=== PATIENT | female | born 1975 | race Caucasian/White ===

== ENCOUNTER 2016-02-19 19:18 | Inpatient (IN) | payer OTHER ==
[2016-02-19 19:55] VITALS: BMI 21.8
--- NOTE | 2016-02-19 20:24 | HP ---
COWS - Scale Resting Pulse: 0= [place] 80 or Below Sweatin=Flushed/Facial Moisture Restless Observation: 5= Unable to Sit Still Pupil Size: 1= Pupils >than Normal Bone or Joint Aches: 4=Acute Joint/Muscle Pain Runny Nose/ Eye Tearin= Nasal Congestion GI Upset > 30mins: 2= Nausea/Diarrhea Tremor Observation: 2= Slight Tremor Visible Yawning Observation: 0= None Anxiety or Irritability: 4=Extreme Anxiety Goose Flesh Skin: 0=Smooth Skin COWS Score: 21 Admission ROS [facility] Chief Complaint: WITHDRAWAL SX'S Allergies/Adverse Reactions: Allergies Allergy/AdvReac Type Severity Reaction Status Date / Time sulfamethoxazole AdvReac Verified 02/19/16 20:17 [From Bactrim] trimethoprim [From Bactrim] AdvReac Verified 02/19/16 20:17 History of Present Illness: 41 Y.O. FEMALE WITH OPIOID , COCAINE, CANNABIS DEPENDENCE ADMITTED FOR DETOX. CLIENT REPORTS THIS IS HER FIRST TIME IN [facility]. DENIES ANY SIGNIFICANT CLEAN TIME Exam Limitations: No Limitations - Ebola screening Have you traveled outside of the country in the last 21 days: No Have you had contact with anyone from an Ebola affected area: No Have you been sick,other than usual withdrawal symptoms: No Do you have a fever: No - Review of Systems Constitutional: Chills, Loss of Appetite, Malaise, Night Sweats, Changes in sleep EENT: reports: Tearing, Nose Congestion Respiratory: reports: No Symptoms reported Cardiac: reports: No Symptoms Reported GI: reports: Diarrhea, Nausea, Poor Appetite : reports: No Symptoms Reported Musculoskeletal: reports: Back Pain, Joint Pain Integumentary: reports: No Symptoms Reported Neuro: reports: No Symptoms reported Endocrine: reports: No Symptoms Reported Hematology: reports: Anemia Psychiatric: reports: Anxious Other Systems: Reviewed and Negative Patient History - Patient Medical History Hx Anemia: Yes Hx Asthma: No Hx Chronic Obstructive Pulmonary Disease (COPD): No Hx Cancer: No Hx Cardiac Disorders: No Hx Congestive Heart Failure: No Hx Hypertension: No Hx Hypercholesterolemia: No Hx Pacemaker: No HX Cerebrovascular Accident: No Hx Seizures: No Hx Dementia: No Hx Diabetes: No Hx Gastrointestinal Disorders: No Hx Liver Disease: No Hx Genitourinary Disorders: No Hx Sexually Transmitted Disorders: No Hx Renal Disease (ESRD): No Hx Thyroid Disease: No Hx Human Immunodeficiency Virus (HIV): Yes (ON MEDS) Hx Hepatitis C: No Hx Depression: No Hx Suicide Attempt: No Hx Bipolar Disorder: No Other Medical History: DENIES - Patient Surgical History Past Surgical History: Yes Hx Section: Yes (X3) Hx Orthopedic Surgery: Yes (R FOOT BUNION SX) Anesthesia Reaction: No - PPD History Previous Implant?: Yes Documented Results: Negative w/o proof Implanted On Prior R Admission?: No PPD to be Administered?: Yes - Reproductive History Patient is a Female of Child Bearing Age (11 -55 yrs old): Yes Last Menstrual Period: 07/25/15 LMP comment: IRREG Patient : No (NEG HCG) - Smoking Cessation Smoking history: Current every day smoker Have you smoked in the past 12 months: Yes Aproximately how many cigarettes per day: 4 Cigars Per Day: 0 Hx Chewing Tobacco Use: No Initiated information on smoking cessation: Yes 'Breaking Loose' booklet given: 02/19/16 - Substance & Tx. History Hx Alcohol Use: No Hx Substance Use: Yes Substance Use Type: Cocaine, Heroin, Marijuana Hx Substance Use Treatment: No - Substances Abused HEROIN Route: Inhalation Frequency: Daily Amount used: 3 BUNDLES Age of first use: 40 Date of Last Use: 02/17/16 THC Route: Smoking Frequency: 1-3 times last 30 days Amount used: DIME BAG Age of first use: 18 Date of Last Use: 02/19/16 COCAINE Route: Smoking Frequency: Daily Amount used: 1 GM Age of first use: 24 Date of Last Use: 02/17/16 Family Disease History - Family Disease History Family Disease History: Other: Father (HEROIN ADDICT/OVERDOSED) Admission Physical Exam S - Vital Signs Vital Signs: Vital Signs - 24 hr 02/19/16 19:49 Temperature 97.5 F L Pulse Rate 76 Respiratory 18 Rate Blood Pressure 100/61 - Physical General Appearance: Yes: Appropriately Dressed, Mild Distress, Tremorous, Irritable, Anxious HEENTM: Yes: EOMI, Normocephalic, TAD, Pharynx Normal Respiratory: Yes: Chest Non-Tender, Lungs Clear, Normal Breath Sounds, No Respiratory Distress, No Accessory Muscle Use Neck: Yes: No masses,lesions,Nodules, Supple, Trachea in good position Breast: Yes: Breast Exam Deferred Cardiology: Yes: Regular Rhythm, Regular Rate, S1, S2 Abdominal: Yes: Normal Bowel Sounds, Non Tender, Soft, Surgical Scar (C SECTION) Genitourinary: Yes: Within Normal Limits Back: Yes: Normal Inspection Musculoskeletal: Yes: full range of Motion, Gait Steady Extremities: Yes: Normal Capillary Refill, Normal Range of Motion, Non-Tender, Tremors Neurological: Yes: certified midwife II-XII NML intact, Fully Oriented, Alert, Motor Strength 5/5 Integumentary: Yes: Normal Color, Dry, Warm Lymphatic: Yes: Within Normal Limits - Diagnostic (1) Nicotine dependence Current Visit: Yes Status: Chronic Qualifiers: Nicotine product type: cigarettes Substance use status: uncomplicated Qualified Code(s): F17.210 - Nicotine dependence, cigarettes, uncomplicated (2) Uncomplicated opioid dependence Current Visit: Yes Status: Acute (3) Cocaine dependence, uncomplicated Current Visit: Yes Status: Acute (4) Cannabis dependence, uncomplicated Current Visit: Yes Status: Acute (5) HIV disease Current Visit: Yes Status: Chronic Cleared for Admission [facility] - Detox or Rehab [facility] Level of Care: Medically Managed Detox Regimen/Protocol: Methadone [facility] Breath Alcohol Content Breath Alcohol Content: 0 Urine Pregancy Test - Result Urine Test Results: Negative- NO Line Present Urine Drug Screen - Results Drug Screen Negative: No Urine Drug Screen Results: THC-Marijuana, ALEXIA-Cocaine, OPI-Opiates
[2016-02-19] MEDS ORDERED: MAGNESIUM CITRATE 300 ML BOTTLE PO PRN (20:39)
[2016-02-19] MEDS ORDERED: guaiFENesin/D-METHORPHAN HB 10 ML UNIT-DOSE CUPS PO PRN (20:39)
[2016-02-19] MEDS ORDERED: MENTHOL/PHENOL 1 EACH UD MM PRN (20:39)
[2016-02-19] MEDS ORDERED: ACETAMINOPHEN 325 MG TABLET (FP) PO PRN (20:39)
[2016-02-19] MEDS ORDERED: MAGNESIUM HYDROX 2400MG/30ML ORAL SUSPENSION 30 ML CUP PO PRN (20:39)
[2016-02-19] MEDS ORDERED: LOPERAMIDE HCL 2 MG CAPSULE PO PRN (20:39)
[2016-02-19] MEDS ORDERED: P-EPHED 60MG/TRIPROLIDI 2.5MG TABLET PO PRN (20:39)
[2016-02-19] MEDS ORDERED: IBUPROFEN 400 MG TABLET (FP) PO PRN (20:39)
[2016-02-19] MEDS ORDERED: METHADONE HCL 10 MG TABLET (FOR DETOX USE ONLY) PO ONE ×2 (20:39→23:00)
[2016-02-19] MEDS ORDERED: NICOTINE POLACRILEX 2 MG GUM BC PRN (20:39)
[2016-02-19] MEDS ORDERED: hydrOXYzine PAMOATE 50 MG CAPSULE (FP) PO PRN (20:39)
[2016-02-19] MEDS: diazePAM 5 MG TABLET PO PRN (21:41)
[2016-02-19] MEDS: NICOTINE 14 MG/24 HOURS TOPICAL PATCH TD SCH (21:46)
[2016-02-19] MEDS: THIAMINE HCL 100 MG TABLET (FP) PO SCH (22:03)
[2016-02-19 22:35] LABS: URINE APPEARANCE SLCLOUDY; URINE BILIRUBIN NEGATIVE (NEGATIVE); URINE BLOOD NEGATIVE (NEGATIVE); URINE COLOR YELLOW; URINE GLUCOSE (UA) NEGATIVE (NEGATIVE); URINE KETONE NEGATIVE (NEGATIVE); URINE LEUK ESTERASE 1+ (NEGATIVE); URINE NITRITE NEGATIVE (NEGATIVE); URINE PROTEIN NEGATIVE (NEGATIVE); URINE UROBILINOGEN 2.0 E.U/dl E.U./dl (0.2-1.0)
[2016-02-19 22:37] LABS: CALCIUM OXALATE CRYSTALS FEW /hpf (NONE SEEN); URINE MUCUS RARE; URINE RBC 2 /hpf (0-3); URINE WBC 31 /hpf (3-5)
[2016-02-20] MEDS: diazePAM 5 MG TABLET PO PRN ×4 (08:34→22:25)
[2016-02-20] MEDS ORDERED: METHADONE HCL 10 MG TABLET (FOR DETOX USE ONLY) PO ONE (10:00)
[2016-02-20] MEDS: PRENATAL VITAMINS W/ FOLIC ACID TABLET (FP) PO SCH (10:09)
[2016-02-20] MEDS: NICOTINE 14 MG/24 HOURS TOPICAL PATCH TD SCH (10:10)
[2016-02-20 10:19] LABS: MCH 29.3 pg (25.7-33.7); MCHC 33.4 g/dl (32.0-36.0); MEAN CELL VOLUME 87.7 fl (80-96); MEAN PLT VOLUME 9.9 fl (7.5-11.1); PLATELET COUNT 212 K/MM3 (134-434); RDW 15.2 % (11.6-15.6); WHITE BLOOD COUNT 5.7 K/mm3 (4.0-10.0)
--- NOTE | 2016-02-20 10:39 | PN ---
BHS COWS - Scale Resting Pulse: 1= [place] 81-100 Sweatin=Flushed/Facial Moisture Restless Observation: 1= Difficult to Sit Still Pupil Size: 0= Normal to Room Light Bone or Joint Aches: 2= Severe Diffuse Aches Runny Nose/ Eye Tearin= Runny Nose/Eyes GI Upset > 30mins: 1= Stomach Cramp Tremor Observation of Outstretched Hands: 2= Slight Tremor Visible Yawning Observation: 1= 1-2x During Session Anxiety or Irritability: 2=Irritable/Anxious Goose Flesh Skin: 3=Piloerection COWS Score: 17 BHS Progress Note (SOAP) Subjective: chills sweats agitation anxiety irritable headache body aches Objective: 02/20/16 10:36 Vital Signs Temperature 98.1 F 02/20/16 09:40 Pulse Rate 87 02/20/16 09:40 Respiratory Rate 18 02/20/16 09:40 Blood Pressure 110/70 02/20/16 09:40 O2 Sat by Pulse Oximetry (%) Laboratory Tests 02/19/16 02/20/16 21:29 08:00 WBC 5.7 RBC 4.13 Hgb 12.1 Hct 36.2 MCV 87.7 MCHC 33.4 RDW 15.2 Plt Count 212 MPV 9.9 Urine Color Yellow Urine Appearance Slcloudy Urine pH 5.0 Ur Specific [place] 1.032 Urine Protein Negative Urine Glucose (UA) Negative Urine Ketones Negative Urine Blood Negative Urine Nitrite Negative Urine Bilirubin Negative Urine Urobilinogen 2.0 e.u/dl H Ur Leukocyte Esterase 1+ H Urine RBC 2 Urine WBC 31 Ur Epithelial Cells Moderate Calcium Oxalate Crystal Few Urine Mucus Rare labs pending awake/alert ambulating no acute distress Assessment: 02/20/16 10:36 withdrawal sx Plan: continue detox increase fluids labs pending
[2016-02-20 10:53] LABS: ALBUMIN 3.3 g/dl (3.4-5.0); ALK PHOS 107 U/L (45-117); ANION GAP 6 (8-16); BILIRUBIN,TOTAL 0.5 mg/dL (0.2-1.0); CALCIUM 9.1 mg/dL (8.5-10.1); CO2 27 mmol/L (21-32); CREATININE 0.9 mg/dL (0.55-1.02); GLUCOSE,RANDOM 98 mg/dL (74-106); SGOT/AST 10 U/L (15-37); SGPT/ALT 15 U/L (12-78); TOT PROT 6.8 g/dl (6.4-8.2)
[2016-02-20] MEDS: CYCLOBENZAPRINE HCL 10 MG TABLET (FP) PO PRN ×2 (12:25→22:25)
[2016-02-20] MEDS: MAG HYDROX/AL HYDROX/SIMETH 30 ML UNIT-DOSE CUP PO PRN (20:10)
[2016-02-20] MEDS: THIAMINE HCL 100 MG TABLET (FP) PO SCH (22:25)
[2016-02-21] MEDS: diazePAM 5 MG TABLET PO PRN ×4 (02:58→22:16)
[2016-02-21] MEDS ORDERED: METHADONE HCL 5 MG TABLET (FOR DETOX USE ONLY) PO ONE (10:00)
--- NOTE | 2016-02-21 10:13 | PN ---
S COWS - Scale Resting Pulse: 0= [place] 80 or Below Sweatin= Chills/Flushing Restless Observation: 1= Difficult to Sit Still Pupil Size: 1= Pupils >than Normal Bone or Joint Aches: 2= Severe Diffuse Aches Runny Nose/ Eye Tearin= Nasal Congestion GI Upset > 30mins: 2= Nausea/Diarrhea Tremor Observation of Outstretched Hands: 2= Slight Tremor Visible Yawning Observation: 0= None Anxiety or Irritability: 2=Irritable/Anxious Goose Flesh Skin: 0=Smooth Skin COWS Score: 12 S Progress Note (SOAP) Subjective: interrupted seep, sweats., shakes , nausea, diarrhea, bones hurt Objective: 02/21/16 10:11 Vital Signs Temperature 98.2 F 02/21/16 06:01 Pulse Rate 77 02/21/16 06:01 Respiratory Rate 16 02/21/16 06:01 Blood Pressure 100/69 02/21/16 06:01 O2 Sat by Pulse Oximetry (%) Laboratory Tests 02/19/16 02/20/16 02/20/16 21:29 07:50 07:50 WBC RBC Hgb Hct MCV MCHC RDW Plt Count MPV Sodium 140 Potassium 3.5 Chloride 107 Carbon Dioxide 27 Anion Gap 6 L BUN 20 H Creatinine 0.9 Creat Clearance w eGFR > 60 Random Glucose 98 Calcium 9.1 Total Bilirubin 0.5 AST 10 L ALT 15 Alkaline Phosphatase 107 Total Protein 6.8 Albumin 3.3 L Urine Color Yellow Urine Appearance Slcloudy Urine pH 5.0 Ur Specific [place] 1.032 Urine Protein Negative Urine Glucose (UA) Negative Urine Ketones Negative Urine Blood Negative Urine Nitrite Negative Urine Bilirubin Negative Urine Urobilinogen 2.0 e.u/dl H Ur Leukocyte Esterase 1+ H Urine RBC 2 Urine WBC 31 Ur Epithelial Cells Moderate Calcium Oxalate Crystal Few Urine Mucus Rare RPR Titer Nonreactive 02/20/16 08:00 WBC 5.7 RBC 4.13 Hgb 12.1 Hct 36.2 MCV 87.7 MCHC 33.4 RDW 15.2 Plt Count 212 MPV 9.9 Sodium Potassium Chloride Carbon Dioxide Anion Gap BUN Creatinine Creat Clearance w eGFR Random Glucose Calcium Total Bilirubin AST ALT Alkaline Phosphatase Total Protein Albumin Urine Color Urine Appearance Urine pH Ur Specific [place] Urine Protein Urine Glucose (UA) Urine Ketones Urine Blood Urine Nitrite Urine Bilirubin Urine Urobilinogen Ur Leukocyte Esterase Urine RBC Urine WBC Ur Epithelial Cells Calcium Oxalate Crystal Urine Mucus RPR Titer pt aox3 in nad lying in bed but irritable 02/21/16 10:12 02/21/16 10:13 Assessment: 02/21/16 10:12 witrhdrawl sx's Plan: cont. dedtox increase fluids imodium prn motrin prn
[2016-02-21] MEDS: PRENATAL VITAMINS W/ FOLIC ACID TABLET (FP) PO SCH (10:15)
[2016-02-21] MEDS: NICOTINE 14 MG/24 HOURS TOPICAL PATCH TD SCH (10:15)
[2016-02-21] MEDS: CYCLOBENZAPRINE HCL 10 MG TABLET (FP) PO PRN ×2 (10:17→22:16)
[2016-02-21] MEDS: MAG HYDROX/AL HYDROX/SIMETH 30 ML UNIT-DOSE CUP PO PRN ×2 (13:54→19:23)
[2016-02-21] MEDS: THIAMINE HCL 100 MG TABLET (FP) PO SCH (22:16)
[2016-02-21] MEDS: diphenhydrAMINE HCL 50 MG CAPSULE PO PRN (22:18)
[2016-02-21 23:14] LABS: URINE APPEARANCE SLCLOUDY; URINE BILIRUBIN NEGATIVE (NEGATIVE); URINE BLOOD NEGATIVE (NEGATIVE); URINE COLOR YELLOW; URINE GLUCOSE (UA) NEGATIVE (NEGATIVE); URINE KETONE NEGATIVE (NEGATIVE); URINE LEUK ESTERASE NEGATIVE (NEGATIVE); URINE NITRITE POSITIVE (NEGATIVE); URINE PROTEIN NEGATIVE (NEGATIVE); URINE UROBILINOGEN NEGATIVE E.U./dl (0.2-1.0)
[2016-02-21 23:26] LABS: CALCIUM OXALATE CRYSTALS RARE /hpf (NONE SEEN); URINE BACTERIA RARE /hpf (NONE SEEN); URINE MUCUS RARE; URINE RBC 1 /hpf (0-3); URINE WBC 2 /hpf (3-5)
[2016-02-22] MEDS: diphenhydrAMINE HCL 50 MG CAPSULE PO PRN ×2 (00:38→22:17)
[2016-02-22] MEDS: MAG HYDROX/AL HYDROX/SIMETH 30 ML UNIT-DOSE CUP PO PRN ×3 (00:38→18:34)
[2016-02-22] MEDS: diazePAM 5 MG TABLET PO PRN ×2 (03:37→13:07)
[2016-02-22] MEDS: CYCLOBENZAPRINE HCL 10 MG TABLET (FP) PO PRN ×2 (07:46→22:17)
--- NOTE | 2016-02-22 09:40 | PN ---
BHS Progress Note (SOAP) Subjective: alert,irritable,anxious,pain in the body and back,interrupted sleep Objective: 02/22/16 09:39 Vital Signs Temperature 98.2 F 02/22/16 06:21 Pulse Rate 66 02/22/16 06:21 Respiratory Rate 16 02/22/16 06:21 Blood Pressure 108/69 02/22/16 06:21 O2 Sat by Pulse Oximetry (%) Assessment: 02/22/16 09:39 withdrawal symptom Plan: continue detox
[2016-02-22] MEDS ORDERED: METHADONE HCL 5 MG TABLET (FOR DETOX USE ONLY) PO ONE (10:00)
[2016-02-22] MEDS: PRENATAL VITAMINS W/ FOLIC ACID TABLET (FP) PO SCH (10:06)
[2016-02-22] MEDS: NICOTINE 14 MG/24 HOURS TOPICAL PATCH TD SCH (10:07)
[2016-02-22] MEDS: EMTRICITABINE 200MG/TENOFOVIR 300MG PO SCH (10:39)
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
[2016-02-22] MEDS: THIAMINE HCL 100 MG TABLET (FP) PO SCH (22:17)
[2016-02-22] MEDS: QUEtiapine FUMARATE 50 MG TABLET PO SCH (22:17)
[2016-02-22] MEDS ORDERED: PANTOPRAZOLE 40 MG TABLET (FP) PO ONE (23:52)
[2016-02-22] MEDS ORDERED: RANITIDINE HCL 150 MG TABLET (FP) PO ONE (23:54)
[2016-02-23] MEDS ORDERED: METHADONE HCL 10 MG TABLET (FOR DETOX USE ONLY) PO ONE (10:00)
[2016-02-23] MEDS: PRENATAL VITAMINS W/ FOLIC ACID TABLET (FP) PO SCH (10:41)
[2016-02-23] MEDS: EMTRICITABINE 200MG/TENOFOVIR 300MG PO SCH (10:42)
[2016-02-23] MEDS: NICOTINE 14 MG/24 HOURS TOPICAL PATCH TD SCH (10:42)
[2016-02-23] MEDS: RANITIDINE HCL 150 MG TABLET (FP) PO SCH ×2 (10:42→22:10)
--- NOTE | 2016-02-23 11:53 | PN ---
S Progress Note (SOAP) Subjective: alert,irritable,anxious,interrupted sleep Objective: 02/23/16 11:52 Vital Signs Temperature 97.3 F L 02/23/16 10:00 Pulse Rate 96 H 02/23/16 10:00 Respiratory Rate 16 02/23/16 10:00 Blood Pressure 109/65 02/23/16 10:00 O2 Sat by Pulse Oximetry (%) Assessment: 02/23/16 11:52 withdrawal symptom Plan: continue detox,discharge in am
[2016-02-23] MEDS: CYCLOBENZAPRINE HCL 10 MG TABLET (FP) PO PRN (22:10)
[2016-02-23] MEDS: QUEtiapine FUMARATE 50 MG TABLET PO SCH (22:10)
[2016-02-23] MEDS: THIAMINE HCL 100 MG TABLET (FP) PO SCH (22:10)
[2016-02-24] MEDS ORDERED: METHADONE HCL 5 MG TABLET (FOR DETOX USE ONLY) PO ONE (06:00)
[2016-02-24 06:17] VITALS: BP 98/63; PULSE 83; TEMP 97.9
--- NOTE | 2016-02-24 10:33 | DS ---
[facility] Detox Discharge Summary Admission Date: 02/19/16 Discharge Date: 02/24/16 - History Present History: Cannabis Dependence, Cocaine Dependence, Opioid Dependence Pertinent Past History: HIV DISEASE PTSD - Physical Exam Results Vital Signs: Vital Signs Temperature 97.9 F 02/24/16 06:00 Pulse Rate 83 02/24/16 06:00 Respiratory Rate 16 02/24/16 06:00 Blood Pressure 98/63 02/24/16 06:00 O2 Sat by Pulse Oximetry (%) Pertinent Admission Physical Exam Findings: WITHDRAWAL SX. Laboratory Last Values WBC 5.7 K/mm3 (4.0-10.0) 02/20/16 08:00 RBC 4.13 M/mm3 (3.60-5.2) 02/20/16 08:00 Hgb 12.1 GM/dL (10.7-15.3) 02/20/16 08:00 Hct 36.2 % (32.4-45.2) 02/20/16 08:00 MCV 87.7 fl (80-96) 02/20/16 08:00 MCHC 33.4 g/dl (32.0-36.0) 02/20/16 08:00 RDW 15.2 % (11.6-15.6) 02/20/16 08:00 Plt Count 212 K/MM3 (134-434) 02/20/16 08:00 MPV 9.9 fl (7.5-11.1) 02/20/16 08:00 Sodium 140 mmol/L (136-145) 02/20/16 07:50 Potassium 3.5 mmol/L (3.5-5.1) 02/20/16 07:50 Chloride 107 mmol/L (98-107) 02/20/16 07:50 Carbon Dioxide 27 mmol/L (21-32) 02/20/16 07:50 Anion Gap 6 (8-16) L 02/20/16 07:50 BUN 20 mg/dL (7-18) H 02/20/16 07:50 Creatinine 0.9 mg/dL (0.55-1.02) 02/20/16 07:50 Creat Clearance w eGFR > 60 (>60) 02/20/16 07:50 Random Glucose 98 mg/dL (74-106) 02/20/16 07:50 Calcium 9.1 mg/dL (8.5-10.1) 02/20/16 07:50 Total Bilirubin 0.5 mg/dL (0.2-1.0) 02/20/16 07:50 AST 10 U/L (15-37) L 02/20/16 07:50 ALT 15 U/L (12-78) 02/20/16 07:50 Alkaline Phosphatase 107 U/L (45-117) 02/20/16 07:50 Total Protein 6.8 g/dl (6.4-8.2) 02/20/16 07:50 Albumin 3.3 g/dl (3.4-5.0) L 02/20/16 07:50 Urine Color Yellow 02/21/16 13:00 Urine Appearance Slcloudy 02/21/16 13:00 Urine pH 6.0 (5.0-8.0) 02/21/16 13:00 Ur Specific [place] 1.018 (1.001-1.035) 02/21/16 13:00 Urine Protein Negative (NEGATIVE) 02/21/16 13:00 Urine Glucose (UA) Negative (NEGATIVE) 02/21/16 13:00 Urine Ketones Negative (NEGATIVE) 02/21/16 13:00 Urine Blood Negative (NEGATIVE) 02/21/16 13:00 Urine Nitrite Positive (NEGATIVE) 02/21/16 13:00 Urine Bilirubin Negative (NEGATIVE) 02/21/16 13:00 Urine Urobilinogen Negative E.U./dl (0.2-1.0) 02/21/16 13:00 Ur Leukocyte Esterase Negative (NEGATIVE) 02/21/16 13:00 Urine RBC 1 /hpf (0-3) 02/21/16 13:00 Urine WBC 2 /hpf (3-5) 02/21/16 13:00 Ur Epithelial Cells Rare /hpf (FEW) 02/21/16 13:00 Calcium Oxalate Crystal Rare /hpf (NONE SEEN) 02/21/16 13:00 Amorphous Urates Moderate /hpf (NONE SEEN) 02/21/16 13:00 Urine Bacteria Rare /hpf (NONE SEEN) 02/21/16 13:00 Urine Mucus Rare 02/21/16 13:00 RPR Titer Nonreactive (NONREACTIVE) 02/20/16 07:50 LABS NOTED - Treatment Hospital Course: Detox Protocol Followed, Detoxed Safely, Responded well, Discharged Condition Good, Rehab Referral Accepted - Medication Discharge Medications: Ambulatory Orders Dolutegravir Sodium [Tivicay] 1 tab PO DAILY 02/19/16 Emtricitabine/Tenofovir [Truvada 200 mg-300 mg Tablet] 1 each PO DAILY 02/19/16 Quetiapine Fumarate [Seroquel -] 50 mg PO HS #30 tablet 02/22/16 - Diagnosis (1) Cannabis dependence, uncomplicated Current Visit: Yes Status: Acute (2) Cocaine dependence, uncomplicated Current Visit: Yes Status: Acute (3) Substance induced mood disorder Current Visit: Yes Status: Acute (4) Uncomplicated opioid dependence Current Visit: Yes Status: Acute (5) HIV disease Current Visit: Yes Status: Chronic (6) Nicotine dependence Current Visit: Yes Status: Chronic Qualifiers: Nicotine product type: cigarettes Substance use status: uncomplicated Qualified Code(s): F17.210 - Nicotine dependence, cigarettes, uncomplicated (7) Post traumatic stress disorder (PTSD) Current Visit: Yes Status: Chronic - AMA Did Patient Leave Against Medical Advice: No
== END 2016-02-24 09:27 | disposition home or self-care (01) | DRG 773 ==
LOC: YASAS 19:18 → Y6N 21:12
PROVIDERS: ADMIT Internal Medicine Addiction Medicine; ATTEND Internal Medicine Addiction Medicine
PROC: HZ2ZZZZ Detoxification Services for Substance Abuse Treatment (ICD-10-PCS; principal; 2016-02-19)
DX: F11.23 Opioid dependence with withdrawal (principal); F14.20 Cocaine dependence, uncomplicated; F12.20 Cannabis dependence, uncomplicated; F17.210 Nicotine dependence, cigarettes, uncomplicated; F43.10 Post-traumatic stress disorder, unspecified; G47.00 Insomnia, unspecified; Z86.2 Personal history of diseases of the blood and blood-forming organs and certain disorders involving the immune mechanism
CPT/HCPCS: 36415; 80053; 81003; 81015; 85027; 86593; 93005; 93010

== ENCOUNTER 2016-11-28 10:54 | Inpatient (IN) | payer OTHER ==
[2016-11-28 12:24] VITALS: BMI 25.2
--- NOTE | 2016-11-28 16:33 | HP ---
COWS - Scale Resting Pulse: 0= [place] 80 or Below Sweatin= Chills/Flushing Restless Observation: 1= Difficult to Sit Still Pupil Size: 0= Normal to Room Light Bone or Joint Aches: 2= Severe Diffuse Aches Runny Nose/ Eye Tearin= Runny Nose/Eyes GI Upset > 30mins: 3= Vomiting/Diarrhea Tremor Observation: 2= Slight Tremor Visible Yawning Observation: 2= >3x During Session Anxiety or Irritability: 2=Irritable/Anxious Goose Flesh Skin: 0=Smooth Skin COWS Score: 15 Admission [facility] Chief Complaint: withdrawal sx Allergies/Adverse Reactions: Allergies Allergy/AdvReac Type Severity Reaction Status Date / Time sulfamethoxazole AdvReac Verified 11/28/16 15:52 [From Bactrim] trimethoprim [From Bactrim] AdvReac Verified 11/28/16 15:52 History of Present Illness: 41 years old female with long history of heroin cocaine marijuana nicotine dependence has hiv and anxiety and depression is admitted to detox Exam Limitations: No Limitations - Ebola screening Have you traveled outside of the country in the last 21 days: No Have you had contact with anyone from an Ebola affected area: No Have you been sick,other than usual withdrawal symptoms: No Do you have a fever: No - Review of Systems Constitutional: Changes in sleep, Weight Stable EENT: reports: No Symptoms Reported Respiratory: reports: SOB with Exertion, Productive cough (greenish) Cardiac: reports: No Symptoms Reported GI: reports: Nausea, Poor Fluid Intake, Vomiting, Indigestion, Abdominal cramping : reports: No Symptoms Reported Musculoskeletal: reports: Back Pain, Joint Pain, Muscle Pain, Neck Pain Integumentary: reports: Dryness Neuro: reports: Tremors Endocrine: reports: No Symptoms Reported Hematology: reports: No Symptoms Reported Psychiatric: reports: Judgement Intact, Orientated x3, Anxious, Depressed Other Systems: Reviewed and Negative Patient History - Patient Medical History Hx Anemia: No Hx Asthma: No Hx Chronic Obstructive Pulmonary Disease (COPD): No Hx Cancer: No Hx Cardiac Disorders: No Hx Congestive Heart Failure: No Hx Hypertension: No Hx Hypercholesterolemia: No Hx Pacemaker: No HX Cerebrovascular Accident: No Hx Seizures: No Hx Dementia: No Hx Diabetes: No Hx Gastrointestinal Disorders: No Hx Liver Disease: No Hx Genitourinary Disorders: No Hx Sexually Transmitted Disorders: No Hx Renal Disease (ESRD): No Hx Thyroid Disease: No Hx Human Immunodeficiency Virus (HIV): Yes (2012 no treatment) Hx Hepatitis C: No Hx Depression: Yes Hx Suicide Attempt: No Hx Bipolar Disorder: No Hx Schizophrenia: No - Patient Surgical History Past Surgical History: Yes Hx Neurologic Surgery: No Hx Cataract Extraction: No Hx Cardiac Surgery: No Hx Lung Surgery: No Hx Breast Surgery: No Hx Breast Biopsy: No Hx Abdominal Surgery: No Hx Appendectomy: No Hx Cholecystectomy: No Hx Genitourinary Surgery: No Hx Section: Yes (X3) Hx Orthopedic Surgery: Yes (R FOOT BUNION SX) Hx Hysterectomy: No Anesthesia Reaction: No - PPD History Previous Implant?: Yes Documented Results: Negative w/proof Implanted On Prior [facility] Admission?: Yes Date: 02/21/16 Results: 0 MM PPD to be Administered?: No - Reproductive History Patient is a Female of Child Bearing Age (11 -55 yrs old): Yes Last Menstrual Period: 11/06/16 Patient : No - Smoking Cessation Smoking history: Current every day smoker Have you smoked in the past 12 months: Yes Aproximately how many cigarettes per day: 5 Cigars Per Day: 0 Hx Chewing Tobacco Use: No Initiated information on smoking cessation: Yes 'Breaking Loose' booklet given: 11/28/16 - Substance & Tx. History Hx Alcohol Use: No Hx Substance Use: Yes Substance Use Type: Cocaine, Heroin, Marijuana Hx Substance Use Treatment: Yes (02/19/16-02/24/16 [facility] - Substances Abused Heroin Route: Inhalation Frequency: Daily Amount used: 30 BAGS Age of first use: 39 Date of Last Use: 11/27/16 Cocaine Route: Inhalation Frequency: Daily Amount used: 3 BAGS Age of first use: 28 Date of Last Use: 11/24/16 Marijuana/Hashish Route: Smoking Frequency: Daily Amount used: $10 Age of first use: 18 Date of Last Use: 11/27/16 Family Disease History - Family Disease History Family Disease History: Diabetes: Mother, Other: Father (HEROIN ADDICT/OVERDOSED ) Admission Physical Exam BHS - Vital Signs Vital Signs: Vital Signs - 24 hr 11/28/16 12:20 Temperature 98.5 F Pulse Rate 63 Respiratory 18 Rate Blood Pressure 100/70 - Physical General Appearance: Yes: Nourished, Appropriately Dressed, Moderate Distress, Tremorous, Irritable, Sweating, Anxious HEENTM: Yes: Hearing grossly Normal, Normal ENT Inspection, Normocephalic, Normal Voice Respiratory: Yes: Chest Non-Tender, Lungs Clear, Normal Breath Sounds, No Respiratory Distress, No Accessory Muscle Use Neck: Yes: Supple, Trachea in good position Breast: Yes: Breasts Symetrical Cardiology: Yes: Regular Rhythm, Regular Rate, S1, S2 Abdominal: Yes: Non Tender, Soft, Increased Bowel Sounds Genitourinary: Yes: Within Normal Limits Back: Yes: Normal Inspection Musculoskeletal: Yes: full range of Motion, Gait Steady, Back pain, Muscle Pain Extremities: Yes: Normal Inspection, Normal Range of Motion, Non-Tender, Tremors Neurological: Yes: Fully Oriented, Alert, Motor Strength 5/5, Normal Response, Depressed Affect Integumentary: Yes: Dry, Warm Lymphatic: Yes: Within Normal Limits - Diagnostic (1) Cannabis dependence, uncomplicated Current Visit: Yes Status: Chronic (2) Cocaine dependence, uncomplicated Current Visit: Yes Status: Chronic (3) HIV disease Current Visit: Yes Status: Chronic Comment: no treatment at this time (4) Nicotine dependence Current Visit: Yes Status: Acute Qualifiers: Nicotine product type: cigarettes Substance use status: in withdrawal Qualified Code(s): F17.213 - Nicotine dependence, cigarettes, with withdrawal; F17.213 - Nicotine dependence, cigarettes, with withdrawal (5) Opioid dependence with withdrawal Current Visit: Yes Status: Acute (6) GERD (gastroesophageal reflux disease) Current Visit: Yes Status: Chronic Qualifiers: Esophagitis presence: without esophagitis Qualified Code(s): K21.9 - Gastro-esophageal reflux disease without esophagitis; K21.9 - Gastro- esophageal reflux disease without esophagitis; K21.9 - Gastro-esophageal reflux disease without esophagitis (7) Depression (emotion) Current Visit: Yes Status: Suspected Qualifiers: Depression Type: dysthymia Qualified Code(s): F34.1 - Dysthymic disorder; F34.1 - Dysthymic disorder; F34.1 - Dysthymic disorder Cleared for Admission [facility] - Detox or Rehab [facility] Level of Care: Medically Managed Detox Regimen/Protocol: Methadone [facility] Breath Alcohol Content Breath Alcohol Content: 0 Urine Pregancy Test - Result Urine Test Results: Negative- NO Line Present Urine Drug Screen - Results Drug Screen Negative: No Urine Drug Screen Results: THC-Marijuana, ALEXIA-Cocaine, OPI-Opiates, MTD- Methadone
[2016-11-28] MEDS ORDERED: MAGNESIUM HYDROX 2400MG/30ML ORAL SUSPENSION 30 ML CUP PO PRN (16:36)
[2016-11-28] MEDS ORDERED: MENTHOL/PHENOL 1 EACH UD MM PRN (16:36)
[2016-11-28] MEDS ORDERED: NICOTINE POLACRILEX 2 MG GUM BUC PRN (16:36)
[2016-11-28] MEDS ORDERED: MAGNESIUM CITRATE 300 ML BOTTLE PO PRN (16:36)
[2016-11-28] MEDS ORDERED: P-EPHED 60MG/TRIPROLIDI 2.5MG TABLET PO PRN (16:36)
[2016-11-28] MEDS ORDERED: MAG HYDROX/AL HYDROX/SIMETH 30 ML UNIT-DOSE CUP PO PRN (16:36)
[2016-11-28] MEDS ORDERED: ACETAMINOPHEN 325 MG TABLET (FP) PO PRN (16:36)
[2016-11-28] MEDS ORDERED: LOPERAMIDE HCL 2 MG CAPSULE PO PRN (16:36)
[2016-11-28] MEDS ORDERED: guaiFENesin/D-METHORPHAN HB 10 ML UNIT-DOSE CUPS PO PRN (16:36)
[2016-11-28] MEDS ORDERED: COLLOIDAL OATMEAL 1 BAR EACH TP PRN (16:38)
[2016-11-28] MEDS: diazePAM 5 MG TABLET PO PRN ×2 (18:15→22:44)
[2016-11-28] MEDS ORDERED: METHADONE HCL 10 MG TABLET (FOR DETOX USE ONLY) PO ONE ×2 (18:15→23:00)
[2016-11-28] MEDS: MINERAL OIL/PETROLAT/WATER TOPICAL CREAM 113 GM JAR TP SCH (22:44)
[2016-11-28] MEDS: THIAMINE HCL 100 MG TABLET (FP) PO SCH (22:44)
[2016-11-28] MEDS: RANITIDINE HCL 150 MG TABLET (FP) PO SCH (22:59)
[2016-11-28 23:56] LABS: URINE APPEARANCE SLCLOUDY; URINE BILIRUBIN NEGATIVE (NEGATIVE); URINE BLOOD 1+ (NEGATIVE); URINE COLOR DKYELLOW; URINE GLUCOSE (UA) NEGATIVE (NEGATIVE); URINE KETONE NEGATIVE (NEGATIVE); URINE NITRITE NEGATIVE (NEGATIVE); URINE PROTEIN NEGATIVE (NEGATIVE); URINE UROBILINOGEN NEGATIVE mg/dL (0.2-1.0)
[2016-11-29 00:26] LABS: URINE BACTERIA RARE /hpf (NONE SEEN); URINE HYALINE CAST 1 /lpf; URINE MUCUS RARE; URINE RBC 30 /hpf (0-3); URINE WBC 7 /hpf (3-5)
[2016-11-29] MEDS ORDERED: METHADONE HCL 10 MG TABLET (FOR DETOX USE ONLY) PO ONE (10:00)
[2016-11-29 10:31] LABS: MCH 29.4 pg (25.7-33.7); MCHC 32.7 g/dl (32.0-36.0); MEAN PLT VOLUME 10.1 fl (7.5-11.1); PLATELET COUNT 182 K/MM3 (134-434); RDW 16.2 % (11.6-15.6); WHITE BLOOD COUNT 4.6 K/mm3 (4.0-10.0)
[2016-11-29 10:44] LABS: ANION GAP 8 (8-16); BILIRUBIN,TOTAL 0.3 mg/dL (0.2-1.0); CALCIUM 8.6 mg/dL (8.5-10.1); CO2 26 mmol/L (21-32); CREATININE 0.6 mg/dL (0.55-1.02); GLUCOSE,RANDOM 84 mg/dL (74-106); SGOT/AST 21 U/L (15-37); SGPT/ALT 19 U/L (12-78); TOT PROT 6.6 g/dl (6.4-8.2)
[2016-11-29 10:45] LABS: ALK PHOS 90 U/L (45-117)
[2016-11-29] MEDS: RANITIDINE HCL 150 MG TABLET (FP) PO SCH ×2 (10:55→22:18)
[2016-11-29] MEDS: PRENATAL VITAMINS W/ FOLIC ACID TABLET (FP) PO SCH (10:55)
[2016-11-29] MEDS: NICOTINE 14 MG/24 HOURS TOPICAL PATCH TD SCH (10:56)
[2016-11-29] MEDS: diazePAM 5 MG TABLET PO PRN ×3 (11:12→20:04)
[2016-11-29 12:16] LABS: URINE LEUK ESTERASE Negative (NEGATIVE)
--- NOTE | 2016-11-29 18:57 | PN ---
BHS COWS - Scale Resting Pulse: 0= [place] 80 or Below Sweatin=Flushed/Facial Moisture Restless Observation: 1= Difficult to Sit Still Pupil Size: 0= Normal to Room Light Bone or Joint Aches: 1= Mild Discomfort Runny Nose/ Eye Tearin= Runny Nose/Eyes GI Upset > 30mins: 2= Nausea/Diarrhea Tremor Observation of Outstretched Hands: 2= Slight Tremor Visible Yawning Observation: 1= 1-2x During Session Anxiety or Irritability: 2=Irritable/Anxious Goose Flesh Skin: 0=Smooth Skin COWS Score: 13 BHS Progress Note (SOAP) Subjective: Anxiety,tremors,sweating,interrupted sleep Objective: 11/29/16 18:57 Vital Signs - 8 hr 11/29/16 11/29/16 11/29/16 13:53 17:36 18:47 Temperature 96.1 F L 98.2 F Pulse Rate 62 67 64 Respiratory 20 18 Rate Blood Pressure 113/77 92/43 116/67 Laboratory Tests 11/28/16 11/29/16 11/29/16 23:20 08:00 08:00 WBC 4.6 RBC 4.00 Hgb 11.8 Hct 36.0 MCV 90.0 MCH 29.4 MCHC 32.7 RDW 16.2 H Plt Count 182 MPV 10.1 Sodium 139 Potassium 4.1 Chloride 105 Carbon Dioxide 26 Anion Gap 8 BUN 14 D Creatinine 0.6 D Creat Clearance w eGFR > 60 Random Glucose 84 Calcium 8.6 Total Bilirubin 0.3 D AST 21 D ALT 19 D Alkaline Phosphatase 90 Total Protein 6.6 Albumin 3.0 L Urine Color Dkyellow Urine Appearance Slcloudy Urine pH 6.0 Ur Specific [place] 1.025 Urine Protein Negative Urine Glucose (UA) Negative Urine Ketones Negative Urine Blood 1+ H Urine Nitrite Negative Urine Bilirubin Negative Urine Urobilinogen Negative Ur Leukocyte Esterase Negative Urine RBC 30 Urine WBC 7 Ur Epithelial Cells Many Urine Bacteria Rare Hyaline Casts 1 Urine Mucus Rare labs noted Assessment: 11/29/16 18:57 Withdrawal sx. Plan: Continue detox
--- NOTE | 2016-11-29 19:11 | CONSULT ---
[facility] Psychiatric Consult - Data Date of interview: 11/29/16 Admission source: [facility] Identifying data: Readmission to [facility] for this 41 y/o female seeking detox treatment on for heroin,cocaine (crack) and marijuana dependence.Patient is ,a mother of four,domiciled,unemployed and supported on Public Assistance. Substance Abuse History: Discussed in this session.Patient confirmed report. Smoking Cessation. Smoking history: Current every day smoker. Have you smoked in the past 12 months: Yes. Aproximately how many cigarettes per day: 5. Cigars Per Day: 0. Hx Chewing Tobacco Use: No. Initiated information on smoking cessation: Yes. 'Breaking Loose' booklet given: 11/28/16. - Substance & Tx. History. Hx Alcohol Use: No. Hx Substance Use: Yes. Substance Use Type : Cocaine, Heroin, Marijuana. Hx Substance Use Treatment: Yes (02/19/16- [facility]). - Substances Abused. Heroin. Route: Inhalation. Frequency : Daily. Amount used: 30 BAGS. Age of first use: 39. Date of Last Use: . Cocaine. Route: Inhalation. Frequency: Daily. Amount used: 3 BAGS. Age of first use: 28. Date of Last Use: 11/24/16. Marijuana/Hashish. Route : Smoking. Frequency: Daily. Amount used: $10. Age of first use: 18. Date of Last Use: 11/27/16 Medical History: HIV infection (since 2012),foot bunion (surgically treated) and a history of three sections. Psychiatric History: Patient,in this encounter,denies history of psychiatric hospitalizations or OPD care.Interviewed by same program writer in January 2016.See note : " patient admits to a history of one psychiatric hospitalization at [facility] (2006).Diagnosed with PTSD.Ms Parson reports total non-adherence to OPD care,including medications.She remembers past scripts for seroquel and benadryl (last taken more than a year ago).Patient appears to be motivated for reactivation of her medications in this hospital course.No reported history of suicide attempts.Chronic insomnia is endorsed by patient." Physical/Sexual Abuse/Trauma History: No reported history of abuse. Additional Comment: Urine Drug Screen Results: THC-Marijuana, ALEXIA-Cocaine, OPI- Opiates, MTD-Methadone.Noted. Mental Status Exam - Mental Status Exam Alert and Oriented to: Time, Place, Person Cognitive Function: Good Patient Appearance: Well Groomed (petite,short stature) Mood: Hopeful, Euthymic Affect: Appropriate, Normal Range Patient Behavior: Fatigued, Appropriate, Cooperative Speech Pattern: Clear Voice Loudness: Normal Thought Process: Intact, Goal Oriented Thought Disorder: Not Present Hallucinations: Denies Suicidal Ideation: Denies Homicidal Ideation: Denies Insight/Judgement: Poor Sleep: Poorly, Difficulty falling asleep (requests seroquel) Appetite: Fair Muscle strength/Tone: Normal Gait/Station: Normal Psychiatric Findings - Problem List ([place] 1, 2,3) (1) Opioid dependence with withdrawal Current Visit: Yes Status: Acute (2) Cannabis dependence, uncomplicated Current Visit: Yes Status: Acute (3) Cocaine dependence, uncomplicated Current Visit: Yes Status: Acute (4) Substance induced mood disorder Current Visit: Yes Status: Acute (5) Nicotine dependence Current Visit: Yes Status: Acute Qualifiers: Nicotine product type: cigarettes Substance use status: in withdrawal Qualified Code(s): F17.213 - Nicotine dependence, cigarettes, with withdrawal; F17.213 - Nicotine dependence, cigarettes, with withdrawal (6) GERD (gastroesophageal reflux disease) Current Visit: Yes Status: Chronic Qualifiers: Esophagitis presence: without esophagitis Qualified Code(s): K21.9 - Gastro-esophageal reflux disease without esophagitis; K21.9 - Gastro- esophageal reflux disease without esophagitis; K21.9 - Gastro-esophageal reflux disease without esophagitis (7) HIV disease Current Visit: Yes Status: Chronic Comment: no treatment at this time (8) Insomnia Current Visit: Yes Status: Acute - Initial Treatment Plan Initial Treatment Plan: Psychoeducation.Detoxification.Medication : seroquel 50 mg po hs.Side effects/benfits are discussed with patient.She agrees with this plan.Observation.
[2016-11-29] MEDS: QUEtiapine FUMARATE 50 MG TABLET PO SCH (22:18)
[2016-11-29] MEDS: THIAMINE HCL 100 MG TABLET (FP) PO SCH (22:18)
[2016-11-29] MEDS: diphenhydrAMINE HCL 50 MG CAPSULE PO PRN (22:19)
[2016-11-29] MEDS: MINERAL OIL/PETROLAT/WATER TOPICAL CREAM 113 GM JAR TP SCH (22:19)
[2016-11-30] MEDS: diazePAM 5 MG TABLET PO PRN ×4 (00:21→20:46)
[2016-11-30] MEDS ORDERED: METHADONE HCL 5 MG TABLET (FOR DETOX USE ONLY) PO ONE (10:00)
[2016-11-30] MEDS: RANITIDINE HCL 150 MG TABLET (FP) PO SCH ×2 (10:54→22:35)
[2016-11-30] MEDS: PRENATAL VITAMINS W/ FOLIC ACID TABLET (FP) PO SCH (10:54)
[2016-11-30] MEDS: NICOTINE 14 MG/24 HOURS TOPICAL PATCH TD SCH (10:55)
--- NOTE | 2016-11-30 12:54 | PN ---
S COWS - Scale Resting Pulse: 0= [place] 80 or Below Sweatin= Chills/Flushing Restless Observation: 3= Extraneous Movement Pupil Size: 1= Pupils >than Normal Bone or Joint Aches: 2= Severe Diffuse Aches Runny Nose/ Eye Tearin= Runny Nose/Eyes GI Upset > 30mins: 2= Nausea/Diarrhea Tremor Observation of Outstretched Hands: 2= Slight Tremor Visible Yawning Observation: 1= 1-2x During Session Anxiety or Irritability: 2=Irritable/Anxious Goose Flesh Skin: 0=Smooth Skin COWS Score: 16 S Progress Note (SOAP) Subjective: ALERT,IRRITABLE,ANXIOUS,INTERRUPTED SLEEP,TREMOR,PAIN IN THE BODY AND BACK Objective: 11/30/16 12:51 Vital Signs Temperature 97.5 F L 11/30/16 09:57 Pulse Rate 66 11/30/16 09:57 Respiratory Rate 18 11/30/16 09:57 Blood Pressure 117/68 11/30/16 09:57 O2 Sat by Pulse Oximetry (%) EKG SINUS BRADYCARDIA 48/MIN NO CHEST PAIN,NO SOB,NO DIZZINESS Laboratory Last Values WBC 4.6 K/mm3 (4.0-10.0) 11/29/16 08:00 RBC 4.00 M/mm3 (3.60-5.2) 11/29/16 08:00 Hgb 11.8 GM/dL (10.7-15.3) 11/29/16 08:00 Hct 36.0 % (32.4-45.2) 11/29/16 08:00 MCV 90.0 fl (80-96) 11/29/16 08:00 MCH 29.4 pg (25.7-33.7) 11/29/16 08:00 MCHC 32.7 g/dl (32.0-36.0) 11/29/16 08:00 RDW 16.2 % (11.6-15.6) H 11/29/16 08:00 Plt Count 182 K/MM3 (134-434) 11/29/16 08:00 MPV 10.1 fl (7.5-11.1) 11/29/16 08:00 Sodium 139 mmol/L (136-145) 11/29/16 08:00 Potassium 4.1 mmol/L (3.5-5.1) 11/29/16 08:00 Chloride 105 mmol/L (98-107) 11/29/16 08:00 Carbon Dioxide 26 mmol/L (21-32) 11/29/16 08:00 Anion Gap 8 (8-16) 11/29/16 08:00 BUN 14 mg/dL (7-18) D 11/29/16 08:00 Creatinine 0.6 mg/dL (0.55-1.02) D 11/29/16 08:00 Creat Clearance w eGFR > 60 (>60) 11/29/16 08:00 Random Glucose 84 mg/dL (74-106) 11/29/16 08:00 Calcium 8.6 mg/dL (8.5-10.1) 11/29/16 08:00 Total Bilirubin 0.3 mg/dL (0.2-1.0) D 11/29/16 08:00 AST 21 U/L (15-37) D 11/29/16 08:00 ALT 19 U/L (12-78) D 11/29/16 08:00 Alkaline Phosphatase 90 U/L (45-117) 11/29/16 08:00 Total Protein 6.6 g/dl (6.4-8.2) 11/29/16 08:00 Albumin 3.0 g/dl (3.4-5.0) L 11/29/16 08:00 Urine Color Dkyellow 11/28/16 23:20 Urine Appearance Slcloudy 11/28/16 23:20 Urine pH 6.0 (5.0-8.0) 11/28/16 23:20 Ur Specific [place] 1.025 (1.005-1.025) 11/28/16 23:20 Urine Protein Negative (NEGATIVE) 11/28/16 23:20 Urine Glucose (UA) Negative (NEGATIVE) 11/28/16 23:20 Urine Ketones Negative (NEGATIVE) 11/28/16 23:20 Urine Blood 1+ (NEGATIVE) H 11/28/16 23:20 Urine Nitrite Negative (NEGATIVE) 11/28/16 23:20 Urine Bilirubin Negative (NEGATIVE) 11/28/16 23:20 Urine Urobilinogen Negative mg/dL (0.2-1.0) 11/28/16 23:20 Ur Leukocyte Esterase Negative (NEGATIVE) 11/28/16 23:20 Urine RBC 30 /hpf (0-3) 11/28/16 23:20 Urine WBC 7 /hpf (3-5) 11/28/16 23:20 Ur Epithelial Cells Many /hpf (FEW) 11/28/16 23:20 Urine Bacteria Rare /hpf (NONE SEEN) 11/28/16 23:20 Hyaline Casts 1 /lpf 11/28/16 23:20 Urine Mucus Rare 11/28/16 23:20 11/30/16 12:53 LABS PENDING Assessment: 11/30/16 12:53 WITHDRAWAL SYMPTOM Plan: CONTINUE DETOX,REPEAT UA
--- NOTE | 2016-11-30 17:28 | EKG ---
Test Reason : Blood Pressure : / mmHG Vent. Rate : 048 BPM Atrial Rate : 048 BPM P-R Int : 140 ms QRS Dur : 080 ms QT Int : 494 ms P-R-T Axes : 058 066 039 degrees QTc Int : 441 ms SINUS BRADYCARDIA AT 48 BPM OTHERWISE NORMAL ECG NO PREVIOUS ECGS AVAILABLE REPEAT EKG IF CLINICALLY INDICATED Confirmed by ASUNCION PRYOR MD ([id number]) on 11/30/2016 5:28:09 PM Referred By: Confirmed By:ASUNCION PRYOR MD
[2016-11-30] MEDS: QUEtiapine FUMARATE 50 MG TABLET PO SCH (22:35)
[2016-11-30] MEDS: diphenhydrAMINE HCL 50 MG CAPSULE PO PRN (22:35)
[2016-11-30] MEDS: MINERAL OIL/PETROLAT/WATER TOPICAL CREAM 113 GM JAR TP SCH (22:35)
[2016-11-30] MEDS: THIAMINE HCL 100 MG TABLET (FP) PO SCH (22:35)
[2016-12-01] MEDS: diazePAM 5 MG TABLET PO PRN ×2 (00:24→10:54)
[2016-12-01] MEDS ORDERED: METHADONE HCL 5 MG TABLET (FOR DETOX USE ONLY) PO ONE (10:00)
[2016-12-01] MEDS: RANITIDINE HCL 150 MG TABLET (FP) PO SCH ×2 (10:52→22:36)
[2016-12-01] MEDS: PRENATAL VITAMINS W/ FOLIC ACID TABLET (FP) PO SCH (10:52)
[2016-12-01] MEDS: NICOTINE 14 MG/24 HOURS TOPICAL PATCH TD SCH (10:53)
--- NOTE | 2016-12-01 12:02 | PN ---
BHS Progress Note (SOAP) Subjective: ALERT,IRRITABLE,ANXIOUS,INTERRUPTED SLEEP,PAIN IN THE BODY Objective: 12/01/16 12:01 Vital Signs Temperature 97.7 F 12/01/16 09:48 Pulse Rate 76 12/01/16 09:48 Respiratory Rate 20 12/01/16 09:48 Blood Pressure 126/78 12/01/16 09:48 O2 Sat by Pulse Oximetry (%) Assessment: 12/01/16 12:01 WITHDRAWAL SYMPTOM Plan: CONTINUE DETOX,REPEAT UA
[2016-12-01 17:08] LABS: URINE APPEARANCE SLCLOUDY; URINE BILIRUBIN NEGATIVE (NEGATIVE); URINE BLOOD NEGATIVE (NEGATIVE); URINE COLOR LTYELLOW; URINE GLUCOSE (UA) NEGATIVE (NEGATIVE); URINE KETONE NEGATIVE (NEGATIVE); URINE NITRITE NEGATIVE (NEGATIVE); URINE PROTEIN NEGATIVE (NEGATIVE); URINE UROBILINOGEN NEGATIVE mg/dL (0.2-1.0)
[2016-12-01] MEDS: hydrOXYzine PAMOATE 50 MG CAPSULE (FP) PO PRN (18:49)
[2016-12-01 20:26] LABS: URINE LEUK ESTERASE 3+ (NEGATIVE)
[2016-12-01] MEDS: diphenhydrAMINE HCL 50 MG CAPSULE PO PRN (22:36)
[2016-12-01] MEDS: THIAMINE HCL 100 MG TABLET (FP) PO SCH (22:36)
[2016-12-01] MEDS: QUEtiapine FUMARATE 50 MG TABLET PO SCH (22:36)
[2016-12-01] MEDS: MINERAL OIL/PETROLAT/WATER TOPICAL CREAM 113 GM JAR TP SCH (22:36)
[2016-12-01 23:23] LABS: URINE BACTERIA MANY /hpf (NEGATIVE); URINE WBC 30-50 (3-5)
[2016-12-02] MEDS: hydrOXYzine PAMOATE 50 MG CAPSULE (FP) PO PRN ×4 (03:32→19:00)
[2016-12-02] MEDS ORDERED: METHADONE HCL 10 MG TABLET (FOR DETOX USE ONLY) PO ONE (10:00)
[2016-12-02] MEDS: PRENATAL VITAMINS W/ FOLIC ACID TABLET (FP) PO SCH (10:38)
[2016-12-02] MEDS: NICOTINE 14 MG/24 HOURS TOPICAL PATCH TD SCH (10:38)
[2016-12-02] MEDS: RANITIDINE HCL 150 MG TABLET (FP) PO SCH ×2 (10:38→22:25)
--- NOTE | 2016-12-02 11:37 | PN ---
S Progress Note (SOAP) Subjective: ALERT,IRRITABLE,ANXIOUS,INTERRUPTED SLEEP,FREQUENCY IN URINATION Objective: 12/02/16 11:33 Vital Signs Temperature 97.9 F 12/02/16 10:06 Pulse Rate 90 12/02/16 10:06 Respiratory Rate 20 12/02/16 10:06 Blood Pressure 113/67 12/02/16 10:06 O2 Sat by Pulse Oximetry (%) Abnormal Lab Results 12/01/16 12:05 Ur Leukocyte Esterase 3+ H Laboratory Last Values WBC 4.6 K/mm3 (4.0-10.0) 11/29/16 08:00 RBC 4.00 M/mm3 (3.60-5.2) 11/29/16 08:00 Hgb 11.8 GM/dL (10.7-15.3) 11/29/16 08:00 Hct 36.0 % (32.4-45.2) 11/29/16 08:00 MCV 90.0 fl (80-96) 11/29/16 08:00 MCH 29.4 pg (25.7-33.7) 11/29/16 08:00 MCHC 32.7 g/dl (32.0-36.0) 11/29/16 08:00 RDW 16.2 % (11.6-15.6) H 11/29/16 08:00 Plt Count 182 K/MM3 (134-434) 11/29/16 08:00 MPV 10.1 fl (7.5-11.1) 11/29/16 08:00 Sodium 139 mmol/L (136-145) 11/29/16 08:00 Potassium 4.1 mmol/L (3.5-5.1) 11/29/16 08:00 Chloride 105 mmol/L (98-107) 11/29/16 08:00 Carbon Dioxide 26 mmol/L (21-32) 11/29/16 08:00 Anion Gap 8 (8-16) 11/29/16 08:00 BUN 14 mg/dL (7-18) D 11/29/16 08:00 Creatinine 0.6 mg/dL (0.55-1.02) D 11/29/16 08:00 Creat Clearance w eGFR > 60 (>60) 11/29/16 08:00 Random Glucose 84 mg/dL (74-106) 11/29/16 08:00 Calcium 8.6 mg/dL (8.5-10.1) 11/29/16 08:00 Total Bilirubin 0.3 mg/dL (0.2-1.0) D 11/29/16 08:00 AST 21 U/L (15-37) D 11/29/16 08:00 ALT 19 U/L (12-78) D 11/29/16 08:00 Alkaline Phosphatase 90 U/L (45-117) 11/29/16 08:00 Total Protein 6.6 g/dl (6.4-8.2) 11/29/16 08:00 Albumin 3.0 g/dl (3.4-5.0) L 11/29/16 08:00 Urine Color Ltyellow 12/01/16 12:05 Urine Appearance Slcloudy 12/01/16 12:05 Urine pH 6.0 (5.0-8.0) 12/01/16 12:05 Ur Specific [place] 1.015 (1.005-1.025) 12/01/16 12:05 Urine Protein Negative (NEGATIVE) 12/01/16 12:05 Urine Glucose (UA) Negative (NEGATIVE) 12/01/16 12:05 Urine Ketones Negative (NEGATIVE) 12/01/16 12:05 Urine Blood Negative (NEGATIVE) 12/01/16 12:05 Urine Nitrite Negative (NEGATIVE) 12/01/16 12:05 Urine Bilirubin Negative (NEGATIVE) 12/01/16 12:05 Urine Urobilinogen Negative mg/dL (0.2-1.0) 12/01/16 12:05 Ur Leukocyte Esterase 3+ (NEGATIVE) H 12/01/16 12:05 Urine RBC 5-10 /hpf (0-3) 12/01/16 12:05 Urine WBC 30-50 (3-5) 12/01/16 12:05 Ur Epithelial Cells Moderate /HPF 12/01/16 12:05 Urine Bacteria Many /hpf (NEGATIVE) 12/01/16 12:05 Hyaline Casts 1 /lpf 11/28/16 23:20 Urine Mucus Rare 11/28/16 23:20 UTI Assessment: 12/02/16 11:35 CONTINUE DETOX,ENCOURAGE ORAL FLUID Plan: CONTINUE DETOX,ENCOURAGE ORAL FLUID,UTI TREATED WITH AMOXICILLIN 500 MGS PO FID FOR 7 DAYS
[2016-12-02] MEDS: AMOXICILLIN 500 MG CAPSULE (FP) PO SCH ×2 (13:43→22:25)
[2016-12-02] MEDS ORDERED: QUEtiapine FUMARATE 100 MG TABLET (FP) PO SCH (22:00)
[2016-12-02] MEDS: THIAMINE HCL 100 MG TABLET (FP) PO SCH (22:25)
[2016-12-02] MEDS: MINERAL OIL/PETROLAT/WATER TOPICAL CREAM 113 GM JAR TP SCH (22:25)
[2016-12-03] MEDS: AMOXICILLIN 500 MG CAPSULE (FP) PO SCH (05:19)
[2016-12-03] MEDS ORDERED: METHADONE HCL 5 MG TABLET (FOR DETOX USE ONLY) PO ONE (06:00)
[2016-12-03] MEDS: RANITIDINE HCL 150 MG TABLET (FP) PO SCH (09:43)
[2016-12-03] MEDS: PRENATAL VITAMINS W/ FOLIC ACID TABLET (FP) PO SCH (09:43)
--- NOTE | 2016-12-03 09:45 | DS ---
[facility] Detox Discharge Summary Admission Date: 11/28/16 Discharge Date: 12/03/16 - History Present History: Cannabis Dependence, Cocaine Dependence, Opioid Dependence Additional Comments: follow up with after care program as arrangement Pertinent Past History: hiv nicotine dependence gerd depression substance induced mood disorder uti - Physical Exam Results Vital Signs: Vital Signs Temperature 97.6 F 12/03/16 06:21 Pulse Rate 69 12/03/16 06:21 Respiratory Rate 18 12/03/16 06:21 Blood Pressure 100/69 12/03/16 06:21 O2 Sat by Pulse Oximetry (%) Pertinent Admission Physical Exam Findings: withdrawal finding - Treatment Hospital Course: Detox Protocol Followed, Detoxed Safely, Responded well, Discharged Condition Good Patient has Accepted a Rehab Referral to: declined - Medication Discharge Medications: Ambulatory Orders Quetiapine Fumarate [Seroquel -] 50 mg PO HS #30 tablet 11/29/16 - Diagnosis (1) Opioid dependence with withdrawal Current Visit: Yes Status: Acute (2) Substance induced mood disorder Current Visit: Yes Status: Acute (3) GERD (gastroesophageal reflux disease) Current Visit: Yes Status: Chronic Qualifiers: Esophagitis presence: without esophagitis Qualified Code(s): K21.9 - Gastro-esophageal reflux disease without esophagitis; K21.9 - Gastro- esophageal reflux disease without esophagitis; K21.9 - Gastro-esophageal reflux disease without esophagitis (4) HIV disease Current Visit: Yes Status: Chronic (5) Uncomplicated opioid dependence Current Visit: No Status: Acute (6) UTI (urinary tract infection) Current Visit: Yes Status: Acute - AMA Did Patient Leave Against Medical Advice: No
[2016-12-03 10:55] VITALS: BP 108/96; PULSE 101; TEMP 97.3
== END 2016-12-03 09:55 | disposition home or self-care (01) | DRG 773 ==
LOC: YASAS 10:54 → Y6N 16:11
PROVIDERS: ADMIT Internal Medicine; ATTEND Internal Medicine
PROC: HZ2ZZZZ Detoxification Services for Substance Abuse Treatment (ICD-10-PCS; principal; 2016-11-28)
DX: F11.23 Opioid dependence with withdrawal (principal); F14.20 Cocaine dependence, uncomplicated; F12.20 Cannabis dependence, uncomplicated; F17.213 Nicotine dependence, cigarettes, with withdrawal; F19.24 Other psychoactive substance dependence with psychoactive substance-induced mood disorder; F34.1 Dysthymic disorder; N39.0 Urinary tract infection, site not specified; Z21 Asymptomatic human immunodeficiency virus [HIV] infection status; K21.9 Gastro-esophageal reflux disease without esophagitis; R00.1 Bradycardia, unspecified; G47.00 Insomnia, unspecified; Z88.8 Allergy status to other drugs, medicaments and biological substances
CPT/HCPCS: 36415; 80053; 81003; 81015; 85027; 86593; 93005; 93010

== ENCOUNTER 2017-11-13 17:42 | Inpatient (IN) | payer OTHER ==
[2017-11-13 20:23] VITALS: BMI 23.8
--- NOTE | 2017-11-13 20:34 | HP ---
CIWA Score - CIWA Score Nausea/Vomitin-Mild Nausea/No Vomiting Muscle Tremors: 2 Anxiety: 3 Agitation: 1-Slight > Activity Paroxysmal Sweats: 1-Minimal Palms Moist Orientation: 2-Disoriented Date<2 days Tacttile Disturbances: 0-None Auditory Disturbances: 0-None Visual Disturbances: 0-None Headache: 2-Mild CIWA-Ar Total Score: 12 Admission ROS S - HPI Chief Complaint: WITHDRAWAL SYMPTOMS Allergies/Adverse Reactions: Allergies Allergy/AdvReac Type Severity Reaction Status Date / Time sulfamethoxazole AdvReac Severe Hives Verified 08/28/17 11:34 [From Bactrim] trimethoprim [From Bactrim] AdvReac Severe Hives Verified 08/28/17 11:34 History of Present Illness: 42 Y.O. WOMAN WITH AN EXTENSIVE HISTORY OF ALCOHOL AND COCAINE DEPENDENCE IS HERE FOR DETOX. SHE WAS LAST HERE FROM 08/28/17-09/02/17 FOR DETOX. DOES NOT HAVE A SIGNIFICANT PERIOD OF DRUB AND ALCOHOL ABSTINENCE. SHE REPORTS SHE IS ENROLLED AT [facility] MMT AND LDM TODAT AT 100MG OF METHADONE. - Ebola screening Have you traveled outside of the country in the last 21 days: No (N) Have you had contact with anyone from an Ebola affected area: No Do you have a fever: No - Review of Systems Constitutional: Chills, Loss of Appetite, Night Sweats, Unexplained wgt Loss EENT: reports: Blurred Vision, Double Vision, Tearing Respiratory: reports: No Symptoms reported Cardiac: reports: No Symptoms Reported GI: reports: No Symptoms Reported : reports: No Symptoms Reported Musculoskeletal: reports: Back Pain Integumentary: reports: No Symptoms Reported Neuro: reports: Headache Endocrine: reports: No Symptoms Reported Hematology: reports: Anemia Psychiatric: reports: Anxious, Depressed, other (BIPOLAR, PTSD) Other Systems: Reviewed and Negative Patient History - Patient Medical History Hx Anemia: No Hx Asthma: No Hx Chronic Obstructive Pulmonary Disease (COPD): No Hx Cancer: No Hx Cardiac Disorders: No Hx Congestive Heart Failure: No Hx Hypertension: No Hx Hypercholesterolemia: No Hx Pacemaker: No HX Cerebrovascular Accident: No Hx Seizures: No Hx Dementia: No Hx Diabetes: No Hx Gastrointestinal Disorders: No Hx Liver Disease: No Hx Genitourinary Disorders: No Hx Sexually Transmitted Disorders: Yes (DX: 2011) Hx Renal Disease (ESRD): No Hx Thyroid Disease: No Hx Human Immunodeficiency Virus (HIV): Yes (DX 2011) Hx Hepatitis C: No Hx Depression: Yes Hx Suicide Attempt: No Hx Bipolar Disorder: Yes Hx Schizophrenia: No - Patient Surgical History Past Surgical History: Yes Hx Neurologic Surgery: No Hx Cataract Extraction: No Hx Cardiac Surgery: No Hx Lung Surgery: No Hx Breast Surgery: No Hx Breast Biopsy: No Hx Abdominal Surgery: No Hx Appendectomy: No Hx Cholecystectomy: No Hx Genitourinary Surgery: No Hx Section: Yes (1992, 1999, 2006) Hx Orthopedic Surgery: Yes (R FOOT BUNION SX) Hx Hysterectomy: No Anesthesia Reaction: No - PPD History Previous Implant?: Yes Documented Results: Positive w/proof Date: 06/02/17 Results: 0mm PPD to be Administered?: No - Reproductive History Patient is a Female of Child Bearing Age (11 -55 yrs old): Yes Last Menstrual Period: 08/23/17 (IRREGULAR MENSES ) Patient : No - Smoking Cessation Smoking history: Current every day smoker Have you smoked in the past 12 months: Yes Aproximately how many cigarettes per day: 10 Cigars Per Day: 0 Hx Chewing Tobacco Use: No Initiated information on smoking cessation: Yes 'Breaking Loose' booklet given: 11/13/17 - Substance & Tx. History Hx Alcohol Use: Yes Hx Substance Use: Yes Substance Use Type: Alcohol, Cocaine Hx Substance Use Treatment: Yes (DETOX: 08/2017; REHAB: LEFT AMA AFTER 1 DAY ) - Substances Abused Alcohol Route: Oral Frequency: Daily Amount used: 1 6-PACK OF BEER, 1 PINT OF LIQUOR Age of first use: 41 Date of Last Use: 11/13/17 Cocaine Route: Inhalation Frequency: Daily Amount used: $40 Age of first use: 28 Date of Last Use: 11/12/17 Family Disease History - Family Disease History Family Disease History: Diabetes: Mother, Other: Father (HEROIN ADDICT/OVERDOSED ,) Admission Physical Exam [facility] - Vital Signs Vital Signs: Vital Signs - 24 hr 11/13/17 20:21 Temperature 98.7 F Pulse Rate 63 Respiratory 16 Rate Blood Pressure 99/65 - Physical General Appearance: Yes: Nourished, Alcohol on Breath, Irritable, Anxious HEENTM: Yes: Hearing grossly Normal, Normal ENT Inspection, Normocephalic Respiratory: Yes: Chest Non-Tender, Lungs Clear, Normal Breath Sounds, No Respiratory Distress, No Accessory Muscle Use Neck: Yes: No masses,lesions,Nodules, Trachea in good position Breast: Yes: Breast Exam Deferred Cardiology: Yes: Regular Rhythm, Regular Rate Abdominal: Yes: Normal Bowel Sounds, Non Tender Genitourinary: Yes: Other (NO COMPLAINTS REPORTED) Back: Yes: Normal Inspection Musculoskeletal: Yes: Back pain Extremities: Yes: Normal Capillary Refill, Normal Inspection Neurological: Yes: Alert, Normal Mood/Affect, Normal Response Integumentary: Yes: Normal Color, Dry, Warm Lymphatic: Yes: Within Normal Limits - Diagnostic (1) SAMIRA (iron deficiency anemia) Current Visit: Yes Status: Chronic (2) Opioid dependence on agonist therapy Current Visit: Yes Status: Chronic (3) Cocaine dependence, uncomplicated Current Visit: Yes Status: Chronic (4) Nicotine dependence Current Visit: Yes Status: Chronic Qualifiers: Nicotine product type: cigarettes Substance use status: in withdrawal Qualified Code(s): F17.213 - Nicotine dependence, cigarettes, with withdrawal (5) HIV disease Current Visit: Yes Status: Chronic Comment: no treatment at this time (6) Constipation Current Visit: Yes Status: Chronic Cleared for Admission [facility] - Detox or Rehab [facility] Level of Care: Medically Managed Detox Regimen/Protocol: Librium [facility] Breath Alcohol Content Breath Alcohol Content: 0 Urine Pregancy Test - Result Urine Test Results: Negative- NO Line Present Urine Drug Screen - Results Drug Screen Negative: No Urine Drug Screen Results: THC-Marijuana, ALEXIA-Cocaine, OPI-Opiates, BAR- Barbiturates, BZO-Benzodiazepines, MTD-Methadone, OXY-Oxycodone
[2017-11-13] MEDS ORDERED: guaiFENesin/D-METHORPHAN HB 10 ML UNIT-DOSE CUPS PO PRN (20:39)
[2017-11-13] MEDS ORDERED: P-EPHED 60MG/TRIPROLIDI 2.5MG TABLET PO PRN (20:39)
[2017-11-13] MEDS ORDERED: IBUPROFEN 400 MG TABLET (FP) PO PRN (20:39)
[2017-11-13] MEDS ORDERED: LOPERAMIDE HCL 2 MG CAPSULE PO PRN (20:39)
[2017-11-13] MEDS ORDERED: chlordiazePOXIDE HCL 25 MG CAPSULE PO PRN (20:39)
[2017-11-13] MEDS ORDERED: MAGNESIUM CITRATE 300 ML BOTTLE PO PRN (20:39)
[2017-11-13] MEDS ORDERED: COLLOIDAL OATMEAL 1 BAR EACH TP PRN (20:39)
[2017-11-13] MEDS ORDERED: MENTHOL/PHENOL 1 EACH UD MM PRN (20:39)
[2017-11-13] MEDS ORDERED: ACETAMINOPHEN 325 MG TABLET (FP) PO PRN (20:39)
[2017-11-13] MEDS ORDERED: MAGNESIUM HYDROX 2400MG/30ML ORAL SUSPENSION 30 ML CUP PO PRN (20:39)
[2017-11-13] MEDS ORDERED: NICOTINE POLACRILEX 2 MG GUM BC PRN (20:39)
[2017-11-13] MEDS ORDERED: chlordiazePOXIDE HCL 25 MG CAPSULE PO ONE (21:00)
[2017-11-13] MEDS: FERROUS SO4 325 MG TABLET (FP) PO SCH (22:57)
[2017-11-13] MEDS: THIAMINE HCL 100 MG TABLET (FP) PO SCH (22:57)
[2017-11-13] MEDS: chlordiazePOXIDE HCL 25 MG CAPSULE PO SCH (22:58)
[2017-11-14] MEDS: chlordiazePOXIDE HCL 25 MG CAPSULE PO SCH ×4 (05:48→22:15)
[2017-11-14] MEDS ORDERED: METHADONE HCL 10 MG TABLET PO SCH (09:00)
[2017-11-14] MEDS ORDERED: METHADONE HCL 40 MG DISPERSABLE TABLET ONE (09:50)
[2017-11-14] MEDS ORDERED: METHADONE HCL 10 MG TABLET ONE (09:50)
[2017-11-14] MEDS: METHADONE 80 MG, METHADONE 20 MG PO SCH (10:11)
[2017-11-14] MEDS: FERROUS SO4 325 MG TABLET (FP) PO SCH ×2 (10:12→22:15)
[2017-11-14] MEDS: PRENATAL VITAMINS W/ FOLIC ACID TABLET (FP) PO SCH (10:12)
[2017-11-14] MEDS: NICOTINE 14 MG/24 HOURS TOPICAL PATCH TD SCH (10:16)
[2017-11-14 10:48] LABS: HEMATOCRIT 32.6 % (32.4-45.2); HEMOGLOBIN 10.8 GM/dL (10.7-15.3); MCH 29.2 pg (25.7-33.7); MCHC 33.2 g/dl (32.0-36.0); MEAN PLT VOLUME 9.4 fl (7.5-11.1); PLATELET COUNT 214 K/MM3 (134-434); RBC 3.71 M/mm3 (3.60-5.2); RDW 18.6 % (11.6-15.6); WHITE BLOOD COUNT 4.3 K/mm3 (4.0-10.0)
[2017-11-14 10:51] LABS: URINE APPEARANCE SLCLOUDY; URINE BILIRUBIN NEGATIVE (<2.0 mg/dL); URINE GLUCOSE (UA) NEGATIVE (NEGATIVE); URINE KETONE NEGATIVE (NEGATIVE); URINE NITRITE NEGATIVE (NEGATIVE); URINE PROTEIN NEGATIVE (NEGATIVE); URINE UROBILINOGEN NEGATIVE mg/dL (0.2-1.0)
[2017-11-14 11:08] LABS: URINE COLOR YELLOW; URINE LEUK ESTERASE 1+ (NEGATIVE)
[2017-11-14 11:12] LABS: ALBUMIN 2.6 g/dl (3.4-5.0); ALK PHOS 104 U/L (45-117); ANION GAP 8 MMOL/L (8-16); BILIRUBIN,TOTAL < 0.1 mg/dL (0.2-1); BLOOD UREA NITROGEN 20 mg/dL (7-18); CALCIUM 8.3 mg/dL (8.5-10.1); CHLORIDE 107 mmol/L (98-107); CO2 28 mmol/L (21-32); CREATININE 0.7 mg/dL (0.55-1.3); GLUCOSE,RANDOM 115 mg/dL (74-106); POTASSIUM 3.5 mmol/L (3.5-5.1); SGOT/AST 18 U/L (15-37); SGPT/ALT 17 U/L (13-61); SODIUM 143 mmol/L (136-145); TOT PROT 6.4 g/dl (6.4-8.2)
[2017-11-14 11:24] LABS: CALCIUM OXALATE CRYSTALS FEW /hpf (NONE SEEN); EPI CELLS RARE /HPF (FEW); URINE MUCUS RARE
[2017-11-14] MEDS: PATIENT'S OWN MEDICATION (NON-FORMULARY) (Efavirenz/Emtricitab/Tenofovir 1 TAB) PO SCH (13:11)
--- NOTE | 2017-11-14 13:36 | PN ---
S CIWA - CIWA Score Nausea/Vomitin Muscle Tremors: 2 Anxiety: 3 Agitation: 3 Paroxysmal Sweats: 2 Orientation: 0-Oriented Tacttile Disturbances: 1-Very Mild Itch/Numbness Auditory Disturbances: 0-None Visual Disturbances: 1-Very Mild Sensitivity Headache: 2-Mild CIWA-Ar Total Score: 16 S Progress Note (SOAP) Subjective: Irritability, interrupted sleep, muscle ache and tremors Objective: 11/14/17 13:35 Vital Signs 11/14/17 11/14/17 06:00 10:23 Temperature 98.1 F 98.2 F Pulse Rate 66 83 Respiratory 16 18 Rate Blood Pressure 133/64 120/60 Laboratory Last Values WBC 4.3 K/mm3 (4.0-10.0) 11/14/17 07:50 RBC 3.71 M/mm3 (3.60-5.2) 11/14/17 07:50 Hgb 10.8 GM/dL (10.7-15.3) 11/14/17 07:50 Hct 32.6 % (32.4-45.2) 11/14/17 07:50 MCV 88.0 fl (80-96) 11/14/17 07:50 MCH 29.2 pg (25.7-33.7) 11/14/17 07:50 MCHC 33.2 g/dl (32.0-36.0) 11/14/17 07:50 RDW 18.6 % (11.6-15.6) H 11/14/17 07:50 Plt Count 214 K/MM3 (134-434) D 11/14/17 07:50 MPV 9.4 fl (7.5-11.1) D 11/14/17 07:50 Sodium 143 mmol/L (136-145) 11/14/17 07:50 Potassium 3.5 mmol/L (3.5-5.1) 11/14/17 07:50 Chloride 107 mmol/L (98-107) 11/14/17 07:50 Carbon Dioxide 28 mmol/L (21-32) 11/14/17 07:50 Anion Gap 8 MMOL/L (8-16) 11/14/17 07:50 BUN 20 mg/dL (7-18) H 11/14/17 07:50 Creatinine 0.7 mg/dL (0.55-1.3) 11/14/17 07:50 Creat Clearance w eGFR > 60 (>60) 11/14/17 07:50 Random Glucose 115 mg/dL (74-106) H 11/14/17 07:50 Calcium 8.3 mg/dL (8.5-10.1) L 11/14/17 07:50 Total Bilirubin < 0.1 mg/dL (0.2-1) L 11/14/17 07:50 AST 18 U/L (15-37) 11/14/17 07:50 ALT 17 U/L (13-61) 11/14/17 07:50 Alkaline Phosphatase 104 U/L (45-117) 11/14/17 07:50 Total Protein 6.4 g/dl (6.4-8.2) 11/14/17 07:50 Albumin 2.6 g/dl (3.4-5.0) L 11/14/17 07:50 Urine Color Yellow 11/14/17 08:50 Urine Appearance Slcloudy 11/14/17 08:50 Urine pH 5.0 (5.0-8.0) 11/14/17 08:50 Ur Specific [place] 1.025 (1.001-1.035) 11/14/17 08:50 Urine Protein Negative (NEGATIVE) 11/14/17 08:50 Urine Glucose (UA) Negative (NEGATIVE) 11/14/17 08:50 Urine Ketones Negative (NEGATIVE) 11/14/17 08:50 Urine Blood Negative (NEGATIVE) 11/14/17 08:50 Urine Nitrite Negative (NEGATIVE) 11/14/17 08:50 Urine Bilirubin Negative (<2.0 mg/dL) 11/14/17 08:50 Urine Urobilinogen Negative mg/dL (0.2-1.0) 11/14/17 08:50 Ur Leukocyte Esterase 1+ (NEGATIVE) H D 11/14/17 08:50 Urine WBC (Auto) 4 /hpf (3-5) 11/14/17 08:50 Urine RBC (Auto) 12 /hpf (0-3) 11/14/17 08:50 Ur Epithelial Cells Rare /HPF (FEW) 11/14/17 08:50 Calcium Oxalate Crystal Few /hpf (NONE SEEN) 11/14/17 08:50 Urine Mucus Rare 11/14/17 08:50 Labs noted Assessment: 11/14/17 13:35 Withdrawal sx Plan: Continue detox
--- NOTE | 2017-11-14 15:21 | PN ---
S Progress Note Note: Patient with c/o vaginal itch, she denies drainage, fever or chills, she reports adequate urinary output. Her urinalysis shows 1 + leukocyte esterase but appears to be contaminate Nystatin vaginal cream has been ordered.
[2017-11-14] MEDS: MAG HYDROX/AL HYDROX/SIMETH 30 ML UNIT-DOSE CUP PO PRN ×2 (15:35→22:31)
--- NOTE | 2017-11-14 15:41 | EKG ---
Test Reason : Blood Pressure : / mmHG Vent. Rate : 059 BPM Atrial Rate : 059 BPM P-R Int : 142 ms QRS Dur : 080 ms QT Int : 464 ms P-R-T Axes : 065 072 053 degrees QTc Int : 459 ms SINUS BRADYCARDIA OTHERWISE NORMAL ECG WHEN COMPARED WITH ECG OF 28-AUG-2017 12:38, T WAVE INVERSION NO LONGER EVIDENT IN INFERIOR LEADS T WAVE AMPLITUDE HAS INCREASED IN LATERAL LEADS Confirmed by MD Liu, Deshawn ([id number]) on 11/14/2017 3:40:50 PM Referred By: Confirmed By:Deshawn Hatfield MD
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
[2017-11-14] MEDS ORDERED: QUEtiapine FUMARATE 100 MG TABLET (FP) PO SCH (22:00)
[2017-11-14] MEDS: THIAMINE HCL 100 MG TABLET (FP) PO SCH (22:15)
[2017-11-14] MEDS: MICONAZOLE NITRATE 2% VAGINAL CREAM 45 GM TUBE VG SCH (22:16)
[2017-11-14] MEDS: MELATONIN 5 MG TABLETS PO PRN (22:18)
[2017-11-15] MEDS ORDERED: METHADONE HCL 10 MG TABLET ONE (05:05)
[2017-11-15] MEDS ORDERED: METHADONE HCL 40 MG DISPERSABLE TABLET ONE (05:05)
[2017-11-15] MEDS: chlordiazePOXIDE HCL 25 MG CAPSULE PO SCH ×3 (05:47→18:06)
[2017-11-15] MEDS: METHADONE 80 MG, METHADONE 20 MG PO SCH (05:48)
[2017-11-15] MEDS: PATIENT'S OWN MEDICATION (NON-FORMULARY) (Efavirenz/Emtricitab/Tenofovir 1 TAB) PO SCH (10:18)
[2017-11-15] MEDS: FERROUS SO4 325 MG TABLET (FP) PO SCH ×2 (10:18→22:56)
[2017-11-15] MEDS: PRENATAL VITAMINS W/ FOLIC ACID TABLET (FP) PO SCH (10:18)
[2017-11-15] MEDS: NICOTINE 14 MG/24 HOURS TOPICAL PATCH TD SCH (10:18)
--- NOTE | 2017-11-15 14:52 | PN ---
S CIWA - CIWA Score Nausea/Vomitin-Mild Nausea/No Vomiting Muscle Tremors: 3 Anxiety: 2 Agitation: 3 Paroxysmal Sweats: 1-Minimal Palms Moist Orientation: 0-Oriented Tacttile Disturbances: 1-Very Mild Itch/Numbness Auditory Disturbances: 1-Very Mild Visual Disturbances: 0-None Headache: 0-None Present CIWA-Ar Total Score: 12 BHS Progress Note (SOAP) Subjective: sweat tremor restlessness anxiety trouble sleep at night Objective: 11/15/17 14:53 Vital Signs Temperature 97.9 F 11/15/17 09:59 Pulse Rate 73 11/15/17 09:59 Respiratory Rate 18 11/15/17 09:59 Blood Pressure 124/68 11/15/17 09:59 O2 Sat by Pulse Oximetry (%) Laboratory Last Values WBC 4.3 K/mm3 (4.0-10.0) 11/14/17 07:50 RBC 3.71 M/mm3 (3.60-5.2) 11/14/17 07:50 Hgb 10.8 GM/dL (10.7-15.3) 11/14/17 07:50 Hct 32.6 % (32.4-45.2) 11/14/17 07:50 MCV 88.0 fl (80-96) 11/14/17 07:50 MCH 29.2 pg (25.7-33.7) 11/14/17 07:50 MCHC 33.2 g/dl (32.0-36.0) 11/14/17 07:50 RDW 18.6 % (11.6-15.6) H 11/14/17 07:50 Plt Count 214 K/MM3 (134-434) D 11/14/17 07:50 MPV 9.4 fl (7.5-11.1) D 11/14/17 07:50 Sodium 143 mmol/L (136-145) 11/14/17 07:50 Potassium 3.5 mmol/L (3.5-5.1) 11/14/17 07:50 Chloride 107 mmol/L (98-107) 11/14/17 07:50 Carbon Dioxide 28 mmol/L (21-32) 11/14/17 07:50 Anion Gap 8 MMOL/L (8-16) 11/14/17 07:50 BUN 20 mg/dL (7-18) H 11/14/17 07:50 Creatinine 0.7 mg/dL (0.55-1.3) 11/14/17 07:50 Creat Clearance w eGFR > 60 (>60) 11/14/17 07:50 Random Glucose 115 mg/dL (74-106) H 11/14/17 07:50 Calcium 8.3 mg/dL (8.5-10.1) L 11/14/17 07:50 Total Bilirubin < 0.1 mg/dL (0.2-1) L 11/14/17 07:50 AST 18 U/L (15-37) 11/14/17 07:50 ALT 17 U/L (13-61) 11/14/17 07:50 Alkaline Phosphatase 104 U/L (45-117) 11/14/17 07:50 Total Protein 6.4 g/dl (6.4-8.2) 11/14/17 07:50 Albumin 2.6 g/dl (3.4-5.0) L 11/14/17 07:50 Urine Color Yellow 11/14/17 08:50 Urine Appearance Slcloudy 11/14/17 08:50 Urine pH 5.0 (5.0-8.0) 11/14/17 08:50 Ur Specific [place] 1.025 (1.001-1.035) 11/14/17 08:50 Urine Protein Negative (NEGATIVE) 11/14/17 08:50 Urine Glucose (UA) Negative (NEGATIVE) 11/14/17 08:50 Urine Ketones Negative (NEGATIVE) 11/14/17 08:50 Urine Blood Negative (NEGATIVE) 11/14/17 08:50 Urine Nitrite Negative (NEGATIVE) 11/14/17 08:50 Urine Bilirubin Negative (<2.0 mg/dL) 11/14/17 08:50 Urine Urobilinogen Negative mg/dL (0.2-1.0) 11/14/17 08:50 Ur Leukocyte Esterase 1+ (NEGATIVE) H D 11/14/17 08:50 Urine WBC (Auto) 4 /hpf (3-5) 11/14/17 08:50 Urine RBC (Auto) 12 /hpf (0-3) 11/14/17 08:50 Ur Epithelial Cells Rare /HPF (FEW) 11/14/17 08:50 Calcium Oxalate Crystal Few /hpf (NONE SEEN) 11/14/17 08:50 Urine Mucus Rare 11/14/17 08:50 RPR Titer Nonreactive (NONREACTIVE) 11/14/17 07:50 lab noted Assessment: 11/15/17 14:54 withdrawal sx Plan: continue detox
[2017-11-15] MEDS: MAG HYDROX/AL HYDROX/SIMETH 30 ML UNIT-DOSE CUP PO PRN (15:27)
--- NOTE | 2017-11-15 17:03 | PN ---
[facility] Progress Note Note: Psychiatric nurse practitioner transformation manager note: Chart reviewed. Pt. requesting seroquel for insomnia. Chart reviewed. Will order Seroquel 50mg qhs.
[2017-11-15] MEDS: THIAMINE HCL 100 MG TABLET (FP) PO SCH (22:56)
[2017-11-15] MEDS: QUEtiapine FUMARATE 50 MG TABLET PO SCH (22:56)
[2017-11-15] MEDS: hydrOXYzine PAMOATE 50 MG CAPSULE (FP) PO PRN (22:56)
[2017-11-15] MEDS: chlordiazePOXIDE 5 MG CAPSULE PO SCH (22:56)
[2017-11-15] MEDS: MELATONIN 5 MG TABLETS PO PRN (22:57)
[2017-11-15] MEDS: MICONAZOLE NITRATE 2% VAGINAL CREAM 45 GM TUBE VG SCH (23:40)
[2017-11-16] MEDS ORDERED: METHADONE HCL 40 MG DISPERSABLE TABLET ONE (05:05)
[2017-11-16] MEDS ORDERED: METHADONE HCL 10 MG TABLET ONE (05:05)
[2017-11-16] MEDS: chlordiazePOXIDE 5 MG CAPSULE PO SCH ×3 (05:22→16:56)
[2017-11-16] MEDS: METHADONE 80 MG, METHADONE 20 MG PO SCH (05:23)
[2017-11-16] MEDS: MAG HYDROX/AL HYDROX/SIMETH 30 ML UNIT-DOSE CUP PO PRN ×2 (06:08→17:10)
[2017-11-16] MEDS: NICOTINE 14 MG/24 HOURS TOPICAL PATCH TD SCH (10:13)
[2017-11-16] MEDS: PATIENT'S OWN MEDICATION (NON-FORMULARY) (Efavirenz/Emtricitab/Tenofovir 1 TAB) PO SCH (10:13)
[2017-11-16] MEDS: FERROUS SO4 325 MG TABLET (FP) PO SCH ×2 (10:13→22:23)
[2017-11-16] MEDS: PRENATAL VITAMINS W/ FOLIC ACID TABLET (FP) PO SCH (10:13)
--- NOTE | 2017-11-16 10:18 | PN ---
Psychiatric Progress Note Vital Signs: Vital Signs Period Temp Pulse Resp BP Sys/Branch Pulse Ox Last 24 Hr 97.5 F-98.2 F 73-94 16-18 98-193/51-72 Date of Session: 11/16/17 Chief Complaint:: "difficulty sleeping and worsening anxiety" HPI: Patient admitted to for alcohol, marijuana, and cocaine dependence. ROS: HIV infection (since 2012),foot bunion (excised) and a history of three sections Current Medications: Active Medications Generic Name Dose Route Start Last Admin Trade Name Freq PRN Reason Stop Dose Admin Acetaminophen 650 mg 11/13/17 20:39 Tylenol - PO Q4H PRN FEVER Al Hydroxide/Mg Hydroxide 30 ml 11/13/17 20:39 11/16/17 06:08 Mylanta Oral Suspension - PO 30 ml Q6H PRN Administration DYSPEPSIA Chlordiazepoxide HCl 15 mg 11/15/17 23:00 11/16/17 10:13 Librium - PO 11/16/17 17:01 15 mg [id number] ABBE Administration Chlordiazepoxide HCl 25 mg 11/13/17 20:39 11/15/17 15:14 Librium - PO 11/16/17 20:38 25 mg Q4H PRN Administration WITHDRAWAL(CONT SUBST) Chlordiazepoxide HCl 10 mg 11/16/17 23:00 Librium - PO 11/17/17 17:01 [id number] ABBE Colloidal Oatmeal 1 applic 11/13/17 20:39 Aveeno Soap - TP DAILY PRN HYGEINE Eucalyptus/Menthol/Phenol/Sorbitol 1 each 11/13/17 20:39 Cepastat Lozenge - MM Q4H PRN SORE THROAT Ferrous Sulfate 325 mg 11/13/17 22:00 11/16/17 10:13 Feosol - PO 325 mg BID ABBE Administration Guaifenesin 10 ml 11/13/17 20:39 Robitussin Dm - PO Q6H PRN COUGH Hydroxyzine Pamoate 50 mg 11/13/17 20:39 11/15/17 22:56 Vistaril - PO 50 mg Q4H PRN Administration AGITATION Ibuprofen 400 mg 11/13/17 20:39 Motrin - PO Q6H PRN PAIN LEVEL 4-6 Loperamide HCl 4 mg 11/13/17 20:39 Imodium - PO Q6H PRN DIARRHEA Magnesium Citrate 300 ml 11/13/17 20:39 Citroma - PO Q48H PRN CONSTIPATION Magnesium Hydroxide 30 ml 11/13/17 20:39 Milk Of Magnesia - PO DAILY PRN CONSTIPATION Melatonin 5 mg 11/13/17 22:00 11/15/17 22:57 Melatonin PO 5 mg HS PRN Administration INSOMNIA Methadone HCl 80 mg/ Methadone 100 mg 11/14/17 10:00 11/16/17 05:23 HCl 20 mg PO 100 mg DAILY@0600 ABBE Administration Miconazole Nitrate 1 applic 11/14/17 22:00 11/15/17 23:40 Monistat-7 Vaginal Cream - VG 11/20/17 22:01 1 applic HS ABBE Administration Nicotine 14 mg 11/14/17 10:00 11/16/17 10:13 Nicoderm Patch - TD 14 mg DAILY ABBE Administration Nicotine Polacrilex 2 mg 11/13/17 20:39 11/14/17 13:16 Nicorette Gum - BC 2 mg Q2H PRN Administration NICOTINE REPLACEMENT RX Non-Formulary Medication 1 tab 11/14/17 10:00 11/16/17 10:13 Efavirenz/Emtricitab/Tenofovir PO 1 tab DAILY ABBE Administration Multivit/Folic Acid/Iron 1 tab 11/14/17 10:00 11/16/17 10:13 Vitamins (Sjr) - PO 1 tab DAILY ABBE Administration Pseudoephedrine/Triprolidine 1 combo 11/13/17 20:39 Actifed - PO TID PRN NASAL CONGESTION Quetiapine Fumarate 50 mg 11/15/17 22:00 11/15/17 22:56 Seroquel - PO 50 mg HS ABBE Administration Thiamine HCl 100 mg 11/13/17 22:00 11/15/17 22:56 Vitamin B1 - PO 100 mg HS ABBE Administration Medication(s) Change(s): Will increase Seroquel 50mg to 100mg qhs. Current Side Effect: No Lab tests ordered: No Lab tests reviewed: Yes Provider note:: Chart reviewed. Dr. Yang note read and appreciated. Pt. reports poor sleep. Reports h/o bipolar disorder. Ms. Parson reports outpatient psychiatric care at [facility] and states she is prescribed seroquel 300mg TID+ Depakote 100mg (??)+ Buspar (unknown dose). Pt. reports nonadherence to depakote, states she only takes the seroquel and buspar. Well add ambien 5mg qhs prn. Benefits and side effects discussed. Patient made aware of the risk of parasomnia. Verbal consent given. Total face to face time:: 25 Mental Status Exam - Mental Status Exam Alert and Oriented to: Time, Place, Person Cognitive Function: Good Patient Appearance: Well Groomed Mood: Euthymic Affect: Euthymic Patient Behavior: Fatigued (States she did not sleep well last night. ) Speech Pattern: Appropriate Voice Loudness: Moderately Soft/Quiet Thought Process: Intact, Goal Oriented Thought Disorder: Not Present Hallucinations: Denies Suicidal Ideation: Denies Homicidal Ideation: Denies Insight/Judgement: Poor Sleep: Poorly Appetite: Fair Muscle strength/Tone: Normal Gait/Station: Normal Psychiatric Treatment Plan - Problem List (1) Alcohol dependence with withdrawal, uncomplicated Current Visit: Yes (2) Cannabis dependence Current Visit: Yes (3) Cocaine dependence, uncomplicated Current Visit: Yes (4) Insomnia Current Visit: Yes (5) Nicotine dependence Current Visit: Yes Qualifiers: Nicotine product type: cigarettes Substance use status: in withdrawal Qualified Code(s): F17.213 - Nicotine dependence, cigarettes, with withdrawal (6) Opioid dependence on agonist therapy Current Visit: Yes (7) Substance induced mood disorder Current Visit: Yes (8) Non-compliance Current Visit: Yes
--- NOTE | 2017-11-16 11:45 | PN ---
S Progress Note (SOAP) Subjective: Still c/o feeling shaky and anxious. (R) eye lid w/ a stye x 2 days. Denies visual changes or eye [pain. Objective: A&O x 3. Abd S/NT. Mild tremors felt n hands. Gait steady. Singular papular lesion (R) lower eye lid. Conjunctiva w/o increased erythema or exudate. Sclera clear. Vital Signs 11/16/17 11/16/17 09:23 13:45 Temperature 97.9 F 97.7 F Pulse Rate 76 82 Respiratory 16 18 Rate Blood Pressure 107/67 114/55 L Laboratory Last Values WBC 4.3 K/mm3 (4.0-10.0) 11/14/17 07:50 RBC 3.71 M/mm3 (3.60-5.2) 11/14/17 07:50 Hgb 10.8 GM/dL (10.7-15.3) 11/14/17 07:50 Hct 32.6 % (32.4-45.2) 11/14/17 07:50 MCV 88.0 fl (80-96) 11/14/17 07:50 MCH 29.2 pg (25.7-33.7) 11/14/17 07:50 MCHC 33.2 g/dl (32.0-36.0) 11/14/17 07:50 RDW 18.6 % (11.6-15.6) H 11/14/17 07:50 Plt Count 214 K/MM3 (134-434) D 11/14/17 07:50 MPV 9.4 fl (7.5-11.1) D 11/14/17 07:50 Sodium 143 mmol/L (136-145) 11/14/17 07:50 Potassium 3.5 mmol/L (3.5-5.1) 11/14/17 07:50 Chloride 107 mmol/L (98-107) 11/14/17 07:50 Carbon Dioxide 28 mmol/L (21-32) 11/14/17 07:50 Anion Gap 8 MMOL/L (8-16) 11/14/17 07:50 BUN 20 mg/dL (7-18) H 11/14/17 07:50 Creatinine 0.7 mg/dL (0.55-1.3) 11/14/17 07:50 Creat Clearance w eGFR > 60 (>60) 11/14/17 07:50 Random Glucose 115 mg/dL (74-106) H 11/14/17 07:50 Calcium 8.3 mg/dL (8.5-10.1) L 11/14/17 07:50 Total Bilirubin < 0.1 mg/dL (0.2-1) L 11/14/17 07:50 AST 18 U/L (15-37) 11/14/17 07:50 ALT 17 U/L (13-61) 11/14/17 07:50 Alkaline Phosphatase 104 U/L (45-117) 11/14/17 07:50 Total Protein 6.4 g/dl (6.4-8.2) 11/14/17 07:50 Albumin 2.6 g/dl (3.4-5.0) L 11/14/17 07:50 Urine Color Yellow 11/14/17 08:50 Urine Appearance Slcloudy 11/14/17 08:50 Urine pH 5.0 (5.0-8.0) 11/14/17 08:50 Ur Specific [place] 1.025 (1.001-1.035) 11/14/17 08:50 Urine Protein Negative (NEGATIVE) 11/14/17 08:50 Urine Glucose (UA) Negative (NEGATIVE) 11/14/17 08:50 Urine Ketones Negative (NEGATIVE) 11/14/17 08:50 Urine Blood Negative (NEGATIVE) 11/14/17 08:50 Urine Nitrite Negative (NEGATIVE) 11/14/17 08:50 Urine Bilirubin Negative (<2.0 mg/dL) 11/14/17 08:50 Urine Urobilinogen Negative mg/dL (0.2-1.0) 11/14/17 08:50 Ur Leukocyte Esterase 1+ (NEGATIVE) H D 11/14/17 08:50 Urine WBC (Auto) 4 /hpf (3-5) 11/14/17 08:50 Urine RBC (Auto) 12 /hpf (0-3) 11/14/17 08:50 Ur Epithelial Cells Rare /HPF (FEW) 11/14/17 08:50 Calcium Oxalate Crystal Few /hpf (NONE SEEN) 11/14/17 08:50 Urine Mucus Rare 11/14/17 08:50 RPR Titer Nonreactive (NONREACTIVE) 11/14/17 07:50 Labs reviewed. Assessment: Withdrawal symptoms. Hordeolum externa (R) lower eyelid. Plan: Continue detox Warm compresses (R) eye Q2H prn Erythromycin yulisa to (R) eye area
[2017-11-16] MEDS ORDERED: ZOLPIDEM TARTRATE 5 MG TABLET PO PRN (22:00)
[2017-11-16] MEDS: MICONAZOLE NITRATE 2% VAGINAL CREAM 45 GM TUBE VG SCH (22:23)
[2017-11-16] MEDS: QUEtiapine FUMARATE 50 MG TABLET PO SCH (22:23)
[2017-11-16] MEDS: chlordiazePOXIDE HCL 10 MG CAPSULE PO SCH (22:23)
[2017-11-16] MEDS: ERYTHROMYCIN 0.5% OPHTHALMIC OINTMENT 3.5 GM TUBE OS SCH (22:23)
[2017-11-16] MEDS: THIAMINE HCL 100 MG TABLET (FP) PO SCH (22:24)
[2017-11-17] MEDS: hydrOXYzine PAMOATE 50 MG CAPSULE (FP) PO PRN (02:29)
[2017-11-17] MEDS ORDERED: METHADONE HCL 40 MG DISPERSABLE TABLET ONE (05:15)
[2017-11-17] MEDS ORDERED: METHADONE HCL 10 MG TABLET ONE (05:15)
[2017-11-17] MEDS: METHADONE 80 MG, METHADONE 20 MG PO SCH (05:36)
[2017-11-17] MEDS: chlordiazePOXIDE HCL 10 MG CAPSULE PO SCH ×2 (05:36→10:50)
[2017-11-17] MEDS: MAG HYDROX/AL HYDROX/SIMETH 30 ML UNIT-DOSE CUP PO PRN (08:07)
--- NOTE | 2017-11-17 09:01 | DS ---
[facility] Detox Discharge Summary Admission Date: 11/13/17 Discharge Date: 11/17/17 - History Present History: Alcohol Dependence Additional Comments: 42 years old female admitted on 11/13/17 for alcohol withdrawal sx completed alcohol detox regimen tolerated well denies alcohol withdrawal sx alert oriented x 3 no acute distress [facility] patient agrees to return to methadone maintenance program tomorrow and depart to [facility] - Physical Exam Results Vital Signs: Vital Signs Temperature 98.1 F 11/17/17 07:05 Pulse Rate 76 11/17/17 07:05 Respiratory Rate 16 11/17/17 07:05 Blood Pressure 112/68 11/17/17 07:05 O2 Sat by Pulse Oximetry (%) Pertinent Admission Physical Exam Findings: alcohol withdrawal sx Vital Signs Temperature 98.4 F 11/17/17 13:17 Pulse Rate 87 11/17/17 13:17 Respiratory Rate 16 11/17/17 13:17 Blood Pressure 95/65 11/17/17 13:17 O2 Sat by Pulse Oximetry (%) Laboratory Last Values WBC 4.3 K/mm3 (4.0-10.0) 11/14/17 07:50 RBC 3.71 M/mm3 (3.60-5.2) 11/14/17 07:50 Hgb 10.8 GM/dL (10.7-15.3) 11/14/17 07:50 Hct 32.6 % (32.4-45.2) 11/14/17 07:50 MCV 88.0 fl (80-96) 11/14/17 07:50 MCH 29.2 pg (25.7-33.7) 11/14/17 07:50 MCHC 33.2 g/dl (32.0-36.0) 11/14/17 07:50 RDW 18.6 % (11.6-15.6) H 11/14/17 07:50 Plt Count 214 K/MM3 (134-434) D 11/14/17 07:50 MPV 9.4 fl (7.5-11.1) D 11/14/17 07:50 Sodium 143 mmol/L (136-145) 11/14/17 07:50 Potassium 3.5 mmol/L (3.5-5.1) 11/14/17 07:50 Chloride 107 mmol/L (98-107) 11/14/17 07:50 Carbon Dioxide 28 mmol/L (21-32) 11/14/17 07:50 Anion Gap 8 MMOL/L (8-16) 11/14/17 07:50 BUN 20 mg/dL (7-18) H 11/14/17 07:50 Creatinine 0.7 mg/dL (0.55-1.3) 11/14/17 07:50 Creat Clearance w eGFR > 60 (>60) 11/14/17 07:50 Random Glucose 115 mg/dL (74-106) H 11/14/17 07:50 Calcium 8.3 mg/dL (8.5-10.1) L 11/14/17 07:50 Total Bilirubin < 0.1 mg/dL (0.2-1) L 11/14/17 07:50 AST 18 U/L (15-37) 11/14/17 07:50 ALT 17 U/L (13-61) 11/14/17 07:50 Alkaline Phosphatase 104 U/L (45-117) 11/14/17 07:50 Total Protein 6.4 g/dl (6.4-8.2) 11/14/17 07:50 Albumin 2.6 g/dl (3.4-5.0) L 11/14/17 07:50 Urine Color Yellow 11/14/17 08:50 Urine Appearance Slcloudy 11/14/17 08:50 Urine pH 5.0 (5.0-8.0) 11/14/17 08:50 Ur Specific [place] 1.025 (1.001-1.035) 11/14/17 08:50 Urine Protein Negative (NEGATIVE) 11/14/17 08:50 Urine Glucose (UA) Negative (NEGATIVE) 11/14/17 08:50 Urine Ketones Negative (NEGATIVE) 11/14/17 08:50 Urine Blood Negative (NEGATIVE) 11/14/17 08:50 Urine Nitrite Negative (NEGATIVE) 11/14/17 08:50 Urine Bilirubin Negative (<2.0 mg/dL) 11/14/17 08:50 Urine Urobilinogen Negative mg/dL (0.2-1.0) 11/14/17 08:50 Ur Leukocyte Esterase 1+ (NEGATIVE) H D 11/14/17 08:50 Urine WBC (Auto) 4 /hpf (3-5) 11/14/17 08:50 Urine RBC (Auto) 12 /hpf (0-3) 11/14/17 08:50 Ur Epithelial Cells Rare /HPF (FEW) 11/14/17 08:50 Calcium Oxalate Crystal Few /hpf (NONE SEEN) 11/14/17 08:50 Urine Mucus Rare 11/14/17 08:50 RPR Titer Nonreactive (NONREACTIVE) 11/14/17 07:50 lab noted - Treatment Hospital Course: Detox Protocol Followed, Detoxed Safely, Responded well, Discharged Condition Good, Rehab Referral Accepted Patient has Accepted a Rehab Referral to: [facility] / methadone maintenance program - Medication Discharge Medications: Ambulatory Orders Efavirenz/Emtricitab/Tenofovir [Atripla Tablet -] 1 tab PO DAILY 11/13/17 - Diagnosis (1) Alcohol dependence with withdrawal, uncomplicated Current Visit: Yes Status: Acute (2) Nicotine dependence Current Visit: Yes Status: Acute Qualifiers: Nicotine product type: cigarettes Substance use status: in withdrawal Qualified Code(s): F17.213 - Nicotine dependence, cigarettes, with withdrawal (3) Constipation Current Visit: Yes Status: Chronic Qualifiers: Constipation type: slow transit constipation Qualified Code(s): K59.01 - Slow transit constipation (4) HIV disease Current Visit: Yes Status: Chronic (5) Opioid dependence on agonist therapy Current Visit: Yes Status: Chronic (6) Weight loss Current Visit: Yes Status: Acute (7) HTN (hypertension) Current Visit: Yes Status: Chronic Qualifiers: Hypertension type: essential hypertension Qualified Code(s): I10 - Essential (primary) hypertension - AMA Did Patient Leave Against Medical Advice: No
[2017-11-17] MEDS: PATIENT'S OWN MEDICATION (NON-FORMULARY) (Efavirenz/Emtricitab/Tenofovir 1 TAB) PO SCH (10:11)
[2017-11-17] MEDS: FERROUS SO4 325 MG TABLET (FP) PO SCH (10:11)
[2017-11-17] MEDS: NICOTINE 14 MG/24 HOURS TOPICAL PATCH TD SCH (10:12)
[2017-11-17] MEDS: ERYTHROMYCIN 0.5% OPHTHALMIC OINTMENT 3.5 GM TUBE OS SCH (10:12)
[2017-11-17] MEDS: PRENATAL VITAMINS W/ FOLIC ACID TABLET (FP) PO SCH (10:12)
[2017-11-17 13:18] VITALS: BP 95/65; PULSE 87; TEMP 98.4
== END 2017-11-17 13:35 | disposition home or self-care (01) | DRG 773 ==
LOC: YASAS 17:42 → Y6N 19:53
PROC: HZ2ZZZZ Detoxification Services for Substance Abuse Treatment (ICD-10-PCS; principal; 2017-11-13)
DX: F10.230 Alcohol dependence with withdrawal, uncomplicated (principal); F14.20 Cocaine dependence, uncomplicated; F12.20 Cannabis dependence, uncomplicated; F11.20 Opioid dependence, uncomplicated; F17.213 Nicotine dependence, cigarettes, with withdrawal; F19.24 Other psychoactive substance dependence with psychoactive substance-induced mood disorder; F31.9 Bipolar disorder, unspecified; F43.10 Post-traumatic stress disorder, unspecified; B20 Human immunodeficiency virus [HIV] disease; G47.00 Insomnia, unspecified; I10 Essential (primary) hypertension; K59.01 Slow transit constipation; K21.9 Gastro-esophageal reflux disease without esophagitis; D50.9 Iron deficiency anemia, unspecified; H00.012 Hordeolum externum right lower eyelid; R63.4 Abnormal weight loss; Z68.23 Body mass index [BMI] 23.0-23.9, adult; Z88.2 Allergy status to sulfonamides; Z91.19 Patient's noncompliance with other medical treatment and regimen
CPT/HCPCS: 36415; 71045-TC-FY; 80053; 81003; 81015; 85027; 86593; 93005; 93010

== ENCOUNTER 2017-11-18 08:40 | Inpatient (IN) | payer OTHER ==
[2017-11-18 09:19] VITALS: BMI 22.6
--- NOTE | 2017-11-18 09:27 | HP ---
[facility] Re[facility] Assess/Revision - Admission History Admitted to Rehab from: [facility] Date of Admission to Rehab: 11/18/17 - Vital signs Vital Signs: Vital Signs Period Temp Pulse Resp BP Sys/Branch Pulse Ox Last 24 Hr 99.2 F 88 18 110/81 - Findings Detox History & Physical reviewed: Yes Concur with findings: Yes Comments/Additional Findings: for rehab as protocol Inpatient Rehab Admission - Initial Determination Are CD services needed?: Yes Free of communicable disease: Yes Not in need of hospitalization: No - Rehab Admission Criteria Previous failed treatment: Yes Poor recovery environment: Yes Comorbidities: Yes Lacks judgement: No Patient is meeting Inpatient Rehab admission criteria:: Yes
[2017-11-18] MEDS ORDERED: MAGNESIUM HYDROX 2400MG/30ML ORAL SUSPENSION 30 ML CUP PO PRN (09:32)
[2017-11-18] MEDS ORDERED: IBUPROFEN 400 MG TABLET (FP) PO PRN (09:32)
[2017-11-18] MEDS ORDERED: MENTHOL/PHENOL 1 EACH UD MM PRN (09:32)
[2017-11-18] MEDS ORDERED: guaiFENesin/D-METHORPHAN HB 10 ML UNIT-DOSE CUPS PO PRN (09:32)
[2017-11-18] MEDS ORDERED: MAGNESIUM CITRATE 300 ML BOTTLE PO PRN (09:32)
[2017-11-18] MEDS ORDERED: ACETAMINOPHEN 325 MG TABLET (FP) PO PRN (09:32)
[2017-11-18] MEDS ORDERED: P-EPHED 60MG/TRIPROLIDI 2.5MG TABLET PO PRN (09:32)
[2017-11-18] MEDS ORDERED: LOPERAMIDE HCL 2 MG CAPSULE PO PRN (09:32)
[2017-11-18] MEDS ORDERED: METHADONE HCL 10 MG TABLET PO SCH (10:30)
[2017-11-18] MEDS ORDERED: METHADONE HCL 10 MG TABLET ONE (12:51)
[2017-11-18] MEDS ORDERED: METHADONE HCL 40 MG DISPERSABLE TABLET ONE (12:52)
[2017-11-18] MEDS: COLLOIDAL OATMEAL 1 BAR EACH TP PRN (12:53)
[2017-11-18] MEDS: NICOTINE 21 MG/24 HOURS TOPICAL PATCH TD SCH (12:53)
[2017-11-18] MEDS: METHADONE 80 MG, METHADONE 20 MG PO SCH (12:54)
[2017-11-18] MEDS: PRENATAL VITAMINS W/ FOLIC ACID TABLET (FP) PO SCH (12:55)
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
[2017-11-18] MEDS: QUEtiapine FUMARATE 200 MG TABLET PO SCH ×2 (16:52→21:32)
[2017-11-18] MEDS: hydrOXYzine PAMOATE 50 MG CAPSULE (FP) PO PRN ×2 (16:52→21:32)
[2017-11-18] MEDS ORDERED: NICOTINE POLACRILEX 2 MG GUM BUC PRN (19:29)
[2017-11-18] MEDS: PATIENT'S OWN MEDICATION (NON-FORMULARY) (Efavirenz/Emtricitab/Tenofovir 1 TAB) PO SCH (19:44)
[2017-11-18] MEDS: THIAMINE HCL 100 MG TABLET (FP) PO SCH (21:32)
[2017-11-18] MEDS: EYE TP SCH (21:33)
[2017-11-18] MEDS: [UNRECOGNIZED DRUG - OTHER] TP SCH (21:33)
[2017-11-18] MEDS: ERYTHROMYCIN 0.5% TP SCH (21:33)
[2017-11-18] MEDS: DOCUSATE SODIUM 100 MG PO SCH (21:35)
[2017-11-18] MEDS: MICONAZOLE NITRATE VG SCH (21:37)
[2017-11-18] MEDS ORDERED: MELATONIN 5 MG TABLETS PO PRN (22:00)
[2017-11-19] MEDS ORDERED: METHADONE HCL 40 MG DISPERSABLE TABLET ONE (03:34)
[2017-11-19] MEDS ORDERED: METHADONE HCL 10 MG TABLET ONE (03:34)
[2017-11-19] MEDS: METHADONE 80 MG, METHADONE 20 MG PO SCH (06:37)
[2017-11-19] MEDS: ERYTHROMYCIN 0.5% TP SCH ×4 (06:44→21:07)
[2017-11-19] MEDS: [UNRECOGNIZED DRUG - OTHER] TP SCH ×4 (06:44→21:07)
[2017-11-19] MEDS: EYE TP SCH ×4 (06:44→21:07)
[2017-11-19] MEDS: PATIENT'S OWN MEDICATION (NON-FORMULARY) (Ferrous Sulfate [Iron] 325 MG) PO SCH (09:24)
[2017-11-19] MEDS: PATIENT'S OWN MEDICATION (NON-FORMULARY) (Efavirenz/Emtricitab/Tenofovir 1 TAB) PO SCH (09:25)
[2017-11-19] MEDS: NICOTINE 21 MG/24 HOURS TOPICAL PATCH TD SCH (09:26)
[2017-11-19] MEDS: DOCUSATE SODIUM 100 MG PO SCH ×2 (09:27→21:07)
[2017-11-19] MEDS: PRENATAL VITAMINS W/ FOLIC ACID TABLET (FP) PO SCH (09:27)
[2017-11-19] MEDS: QUEtiapine FUMARATE 200 MG TABLET PO SCH ×2 (09:28→21:06)
[2017-11-19] MEDS: hydrOXYzine PAMOATE 50 MG CAPSULE (FP) PO PRN ×3 (09:30→21:06)
[2017-11-19] MEDS ORDERED: PNEUMOC 13-VAL CONJ-DIP CRM/PF 0.5 ML DISP.SYRIN IM ONE (12:00)
[2017-11-19] MEDS ORDERED: FLU VACCINE QUAD 60 MCG/0.5 ML (MDV 18-19) IM ONE ×2 (12:00)
[2017-11-19] MEDS ORDERED: PT OWN MED DRAWER 7, Y5N ONE (20:05)
[2017-11-19] MEDS: DOXEPIN HCL 50 MG CAPSULE PO SCH (21:03)
[2017-11-19] MEDS: THIAMINE HCL 100 MG TABLET (FP) PO SCH (21:04)
[2017-11-19] MEDS: MELATONIN 5 MG TABLETS PO PRN (21:06)
[2017-11-19] MEDS: MICONAZOLE NITRATE VG SCH (21:07)
[2017-11-20] MEDS: hydrOXYzine PAMOATE 50 MG CAPSULE (FP) PO PRN ×4 (03:27→20:20)
[2017-11-20] MEDS ORDERED: METHADONE HCL 40 MG DISPERSABLE TABLET ONE (03:35)
[2017-11-20] MEDS ORDERED: METHADONE HCL 10 MG TABLET ONE (03:35)
[2017-11-20] MEDS: ERYTHROMYCIN 0.5% TP SCH ×3 (06:47→21:39)
[2017-11-20] MEDS: METHADONE 80 MG, METHADONE 20 MG PO SCH (06:47)
[2017-11-20] MEDS: [UNRECOGNIZED DRUG - OTHER] TP SCH ×3 (06:47→21:39)
[2017-11-20] MEDS: EYE TP SCH ×3 (06:47→21:39)
[2017-11-20] MEDS: DOCUSATE SODIUM 100 MG PO SCH ×2 (10:24→21:39)
[2017-11-20] MEDS: PATIENT'S OWN MEDICATION (NON-FORMULARY) (Efavirenz/Emtricitab/Tenofovir 1 TAB) PO SCH (10:24)
[2017-11-20] MEDS: PATIENT'S OWN MEDICATION (NON-FORMULARY) (Ferrous Sulfate [Iron] 325 MG) PO SCH (10:25)
[2017-11-20] MEDS: PRENATAL VITAMINS W/ FOLIC ACID TABLET (FP) PO SCH (10:25)
[2017-11-20] MEDS: NICOTINE 21 MG/24 HOURS TOPICAL PATCH TD SCH (10:25)
[2017-11-20] MEDS: QUEtiapine FUMARATE 200 MG TABLET PO SCH ×2 (10:26→21:38)
[2017-11-20] MEDS ORDERED: PT OWN MED DRAWER 7, Y5N ONE ×2 (10:52→14:34)
[2017-11-20] MEDS ORDERED: PNEUMOC 13-VAL CONJ-DIP CRM/PF 0.5 ML DISP.SYRIN IM ONE ×2 (12:00)
[2017-11-20] MEDS: MAG HYDROX/AL HYDROX/SIMETH 30 ML UNIT-DOSE CUP PO PRN (20:20)
[2017-11-20] MEDS: THIAMINE HCL 100 MG TABLET (FP) PO SCH (21:39)
[2017-11-20] MEDS: MICONAZOLE NITRATE VG SCH (21:39)
[2017-11-20] MEDS: DOXEPIN HCL 50 MG CAPSULE PO SCH (21:39)
[2017-11-21] MEDS ORDERED: METHADONE HCL 40 MG DISPERSABLE TABLET ONE (06:11)
[2017-11-21] MEDS ORDERED: METHADONE HCL 10 MG TABLET ONE (06:11)
[2017-11-21] MEDS ORDERED: PT OWN MED DRAWER 7, Y5N ONE ×4 (06:12→20:21)
[2017-11-21] MEDS: METHADONE 80 MG, METHADONE 20 MG PO SCH (06:42)
[2017-11-21] MEDS: EYE TP SCH ×3 (06:44→21:32)
[2017-11-21] MEDS: ERYTHROMYCIN 0.5% TP SCH ×3 (06:44→21:32)
[2017-11-21] MEDS: [UNRECOGNIZED DRUG - OTHER] TP SCH ×3 (06:44→21:32)
[2017-11-21] MEDS: hydrOXYzine PAMOATE 50 MG CAPSULE (FP) PO PRN ×3 (06:50→20:22)
[2017-11-21] MEDS: QUEtiapine FUMARATE 200 MG TABLET PO SCH ×2 (10:09→21:29)
[2017-11-21] MEDS: NICOTINE 21 MG/24 HOURS TOPICAL PATCH TD SCH (10:09)
[2017-11-21] MEDS: PRENATAL VITAMINS W/ FOLIC ACID TABLET (FP) PO SCH (10:09)
[2017-11-21] MEDS: PATIENT'S OWN MEDICATION (NON-FORMULARY) (Efavirenz/Emtricitab/Tenofovir 1 TAB) PO SCH (10:10)
[2017-11-21] MEDS: DOCUSATE SODIUM 100 MG PO SCH ×2 (10:10→21:30)
[2017-11-21] MEDS: PATIENT'S OWN MEDICATION (NON-FORMULARY) (Ferrous Sulfate [Iron] 325 MG) PO SCH (10:10)
[2017-11-21] MEDS: MAG HYDROX/AL HYDROX/SIMETH 30 ML UNIT-DOSE CUP PO PRN ×2 (10:27→21:33)
[2017-11-21] MEDS: THIAMINE HCL 100 MG TABLET (FP) PO SCH (21:29)
[2017-11-21] MEDS: DOXEPIN HCL 50 MG CAPSULE PO SCH (21:29)
[2017-11-21] MEDS: MICONAZOLE NITRATE VG SCH (21:31)
[2017-11-22] MEDS: hydrOXYzine PAMOATE 50 MG CAPSULE (FP) PO PRN ×4 (02:06→21:41)
[2017-11-22] MEDS ORDERED: METHADONE HCL 40 MG DISPERSABLE TABLET ONE (06:00)
[2017-11-22] MEDS ORDERED: PT OWN MED DRAWER 7, Y5N ONE (06:00)
[2017-11-22] MEDS ORDERED: METHADONE HCL 10 MG TABLET ONE (06:00)
[2017-11-22] MEDS: METHADONE 80 MG, METHADONE 20 MG PO SCH (06:32)
[2017-11-22] MEDS: ERYTHROMYCIN 0.5% TP SCH ×3 (06:33→21:39)
[2017-11-22] MEDS: [UNRECOGNIZED DRUG - OTHER] TP SCH ×3 (06:33→21:39)
[2017-11-22] MEDS: EYE TP SCH ×3 (06:33→21:39)
[2017-11-22] MEDS: NICOTINE 21 MG/24 HOURS TOPICAL PATCH TD SCH (10:05)
[2017-11-22] MEDS: PRENATAL VITAMINS W/ FOLIC ACID TABLET (FP) PO SCH (10:06)
[2017-11-22] MEDS: QUEtiapine FUMARATE 200 MG TABLET PO SCH ×2 (10:06→21:38)
[2017-11-22] MEDS: DOCUSATE SODIUM 100 MG PO SCH ×2 (10:07→21:39)
[2017-11-22] MEDS: PATIENT'S OWN MEDICATION (NON-FORMULARY) (Efavirenz/Emtricitab/Tenofovir 1 TAB) PO SCH (10:07)
[2017-11-22] MEDS: PATIENT'S OWN MEDICATION (NON-FORMULARY) (Ferrous Sulfate [Iron] 325 MG) PO SCH (10:07)
[2017-11-22] MEDS: MAG HYDROX/AL HYDROX/SIMETH 30 ML UNIT-DOSE CUP PO PRN (11:12)
[2017-11-22] MEDS: DOXEPIN HCL 50 MG CAPSULE PO SCH (21:38)
[2017-11-22] MEDS: THIAMINE HCL 100 MG TABLET (FP) PO SCH (21:38)
[2017-11-22] MEDS: MICONAZOLE NITRATE VG SCH (21:38)
[2017-11-23] MEDS ORDERED: METHADONE HCL 10 MG TABLET ONE (05:48)
[2017-11-23] MEDS ORDERED: METHADONE HCL 40 MG DISPERSABLE TABLET ONE (05:48)
[2017-11-23] MEDS: METHADONE 80 MG, METHADONE 20 MG PO SCH (06:16)
[2017-11-23] MEDS: ERYTHROMYCIN 0.5% TP SCH ×3 (06:17→21:24)
[2017-11-23] MEDS: hydrOXYzine PAMOATE 50 MG CAPSULE (FP) PO PRN ×3 (06:17→21:23)
[2017-11-23] MEDS: EYE TP SCH ×3 (06:17→21:24)
[2017-11-23] MEDS: [UNRECOGNIZED DRUG - OTHER] TP SCH ×3 (06:17→21:24)
[2017-11-23] MEDS ORDERED: PT OWN MED DRAWER 7, Y5N ONE ×3 (09:40→13:46)
[2017-11-23] MEDS: DOCUSATE SODIUM 100 MG PO SCH ×2 (10:26→21:25)
[2017-11-23] MEDS: PRENATAL VITAMINS W/ FOLIC ACID TABLET (FP) PO SCH (10:27)
[2017-11-23] MEDS: NICOTINE 21 MG/24 HOURS TOPICAL PATCH TD SCH (10:27)
[2017-11-23] MEDS: PATIENT'S OWN MEDICATION (NON-FORMULARY) (Ferrous Sulfate [Iron] 325 MG) PO SCH (10:27)
[2017-11-23] MEDS: PATIENT'S OWN MEDICATION (NON-FORMULARY) (Efavirenz/Emtricitab/Tenofovir 1 TAB) PO SCH (10:27)
[2017-11-23] MEDS: QUEtiapine FUMARATE 200 MG TABLET PO SCH ×2 (10:28→21:23)
[2017-11-23] MEDS: DOXEPIN HCL 50 MG CAPSULE PO SCH (21:23)
[2017-11-23] MEDS: THIAMINE HCL 100 MG TABLET (FP) PO SCH (21:23)
[2017-11-23] MEDS: MICONAZOLE NITRATE VG SCH (21:24)
[2017-11-24] MEDS ORDERED: METHADONE HCL 40 MG DISPERSABLE TABLET ONE (03:28)
[2017-11-24] MEDS ORDERED: METHADONE HCL 10 MG TABLET ONE (03:28)
[2017-11-24] MEDS: ERYTHROMYCIN 0.5% TP SCH ×3 (06:08→21:06)
[2017-11-24] MEDS: EYE TP SCH ×3 (06:08→21:06)
[2017-11-24] MEDS: METHADONE 80 MG, METHADONE 20 MG PO SCH (06:08)
[2017-11-24] MEDS: [UNRECOGNIZED DRUG - OTHER] TP SCH ×3 (06:08→21:06)
[2017-11-24] MEDS: hydrOXYzine PAMOATE 50 MG CAPSULE (FP) PO PRN ×2 (06:10→16:22)
[2017-11-24] MEDS: DOCUSATE SODIUM 100 MG PO SCH ×2 (09:40→21:06)
[2017-11-24] MEDS: PATIENT'S OWN MEDICATION (NON-FORMULARY) (Ferrous Sulfate [Iron] 325 MG) PO SCH (09:41)
[2017-11-24] MEDS: PATIENT'S OWN MEDICATION (NON-FORMULARY) (Efavirenz/Emtricitab/Tenofovir 1 TAB) PO SCH (09:41)
[2017-11-24] MEDS: QUEtiapine FUMARATE 200 MG TABLET PO SCH ×2 (09:41→21:06)
[2017-11-24] MEDS: PRENATAL VITAMINS W/ FOLIC ACID TABLET (FP) PO SCH (09:42)
[2017-11-24] MEDS: NICOTINE 21 MG/24 HOURS TOPICAL PATCH TD SCH (09:42)
[2017-11-24] MEDS: THIAMINE HCL 100 MG TABLET (FP) PO SCH (21:06)
[2017-11-24] MEDS: DOXEPIN HCL 50 MG CAPSULE PO SCH (21:06)
[2017-11-24] MEDS: MICONAZOLE NITRATE VG SCH (21:06)
[2017-11-24] MEDS: MELATONIN 5 MG TABLETS PO PRN (21:07)
[2017-11-25] MEDS ORDERED: METHADONE HCL 40 MG DISPERSABLE TABLET ONE (03:26)
[2017-11-25] MEDS ORDERED: METHADONE HCL 10 MG TABLET ONE (03:26)
[2017-11-25] MEDS: [UNRECOGNIZED DRUG - OTHER] TP SCH ×3 (06:15→21:47)
[2017-11-25] MEDS: ERYTHROMYCIN 0.5% TP SCH ×3 (06:15→21:47)
[2017-11-25] MEDS: EYE TP SCH ×3 (06:15→21:47)
[2017-11-25] MEDS: hydrOXYzine PAMOATE 50 MG CAPSULE (FP) PO PRN ×5 (06:16→23:24)
[2017-11-25] MEDS: METHADONE 80 MG, METHADONE 20 MG PO SCH (06:16)
[2017-11-25] MEDS: COLLOIDAL OATMEAL 1 BAR EACH TP PRN (10:49)
[2017-11-25] MEDS: PRENATAL VITAMINS W/ FOLIC ACID TABLET (FP) PO SCH (10:49)
[2017-11-25] MEDS: QUEtiapine FUMARATE 200 MG TABLET PO SCH ×2 (10:50→21:46)
[2017-11-25] MEDS: NICOTINE 21 MG/24 HOURS TOPICAL PATCH TD SCH (10:50)
[2017-11-25] MEDS: DOCUSATE SODIUM 100 MG PO SCH ×2 (10:50→21:49)
[2017-11-25] MEDS: PATIENT'S OWN MEDICATION (NON-FORMULARY) (Ferrous Sulfate [Iron] 325 MG) PO SCH (10:52)
[2017-11-25] MEDS: PATIENT'S OWN MEDICATION (NON-FORMULARY) (Efavirenz/Emtricitab/Tenofovir 1 TAB) PO SCH (10:52)
[2017-11-25] MEDS: HYDROCORTISONE 1% TOPICAL OINT 30 GM TUBE TP PRN (10:54)
[2017-11-25] MEDS: BACITRACIN 0.9 GM PACKET TP SCH ×2 (13:20→21:46)
--- NOTE | 2017-11-25 15:23 | PN ---
[facility] Progress Note Note: C/O RED NON-ITCHY BUMP ON LEFT SIDE OF NECK NECK AND UNDERARMS. Vital Signs - 24 hr 11/25/17 11/25/17 11/25/17 00:30 03:30 06:53 Temperature 98.2 F Pulse Rate 64 Respiratory 16 16 17 Rate Blood Pressure 107/76 SKIN EXAM: RED BUMP ON LEFT SIDE OF NECK AND LEFT ARMPIT. PAIN ON PALPATION DX:FOLLICULITIS OF UNDERARM ABSCESS NECK PLAN;AMOXICILLIN 500 PO TID X 7 DAYS BACITRACIN OINTMENT APPLY TO AFFECTED AREAS BID INCREASE PO FLUIDS
[2017-11-25] MEDS ORDERED: AMOXICILLIN 500 MG CAPSULE (FP) PO ONE (15:50)
[2017-11-25] MEDS: THIAMINE HCL 100 MG TABLET (FP) PO SCH (21:46)
[2017-11-25] MEDS: DOXEPIN HCL 50 MG CAPSULE PO SCH (21:46)
[2017-11-25] MEDS: MICONAZOLE NITRATE VG SCH (21:46)
[2017-11-25] MEDS: MELATONIN 5 MG TABLETS PO PRN (21:48)
[2017-11-25] MEDS: AMOXICILLIN 500 MG CAPSULE (FP) PO SCH (21:49)
[2017-11-26] MEDS ORDERED: METHADONE HCL 10 MG TABLET ONE (06:39)
[2017-11-26] MEDS ORDERED: METHADONE HCL 40 MG DISPERSABLE TABLET ONE (06:39)
[2017-11-26] MEDS: EYE TP SCH ×3 (06:39→21:17)
[2017-11-26] MEDS: hydrOXYzine PAMOATE 50 MG CAPSULE (FP) PO PRN ×4 (06:39→21:16)
[2017-11-26] MEDS: AMOXICILLIN 500 MG CAPSULE (FP) PO SCH ×3 (06:39→21:14)
[2017-11-26] MEDS: ERYTHROMYCIN 0.5% TP SCH ×3 (06:39→21:17)
[2017-11-26] MEDS: [UNRECOGNIZED DRUG - OTHER] TP SCH ×3 (06:39→21:17)
[2017-11-26] MEDS: METHADONE 80 MG, METHADONE 20 MG PO SCH (06:40)
[2017-11-26] MEDS: QUEtiapine FUMARATE 200 MG TABLET PO SCH ×2 (10:21→21:14)
[2017-11-26] MEDS: BACITRACIN 0.9 GM PACKET TP SCH ×2 (10:21→21:14)
[2017-11-26] MEDS: PRENATAL VITAMINS W/ FOLIC ACID TABLET (FP) PO SCH (10:21)
[2017-11-26] MEDS: NICOTINE 21 MG/24 HOURS TOPICAL PATCH TD SCH (10:22)
[2017-11-26] MEDS: PATIENT'S OWN MEDICATION (NON-FORMULARY) (Ferrous Sulfate [Iron] 325 MG) PO SCH (10:23)
[2017-11-26] MEDS: DOCUSATE SODIUM 100 MG PO SCH ×2 (10:23→21:15)
[2017-11-26] MEDS: PATIENT'S OWN MEDICATION (NON-FORMULARY) (Efavirenz/Emtricitab/Tenofovir 1 TAB) PO SCH (10:23)
[2017-11-26] MEDS: HYDROCORTISONE 1% TOPICAL OINT 30 GM TUBE TP PRN (10:25)
[2017-11-26] MEDS ORDERED: PT OWN MED DRAWER 7, Y5N ONE (12:23)
[2017-11-26] MEDS: DOXEPIN HCL 50 MG CAPSULE PO SCH (21:14)
[2017-11-26] MEDS: THIAMINE HCL 100 MG TABLET (FP) PO SCH (21:14)
[2017-11-26] MEDS: MELATONIN 5 MG TABLETS PO PRN (21:15)
[2017-11-26] MEDS: MICONAZOLE NITRATE VG SCH (21:17)
[2017-11-27] MEDS ORDERED: METHADONE HCL 10 MG TABLET ONE (06:10)
[2017-11-27] MEDS ORDERED: METHADONE HCL 40 MG DISPERSABLE TABLET ONE (06:10)
[2017-11-27] MEDS: METHADONE 80 MG, METHADONE 20 MG PO SCH (06:31)
[2017-11-27] MEDS: hydrOXYzine PAMOATE 50 MG CAPSULE (FP) PO PRN ×3 (06:31→21:17)
[2017-11-27] MEDS: AMOXICILLIN 500 MG CAPSULE (FP) PO SCH ×3 (06:31→21:17)
[2017-11-27] MEDS: [UNRECOGNIZED DRUG - OTHER] TP SCH ×3 (06:59→21:19)
[2017-11-27] MEDS: ERYTHROMYCIN 0.5% TP SCH ×3 (06:59→21:19)
[2017-11-27] MEDS: EYE TP SCH ×3 (06:59→21:19)
[2017-11-27] MEDS ORDERED: PT OWN MED DRAWER 7, Y5N ONE (08:58)
[2017-11-27] MEDS: QUEtiapine FUMARATE 200 MG TABLET PO SCH ×2 (10:52→21:17)
[2017-11-27] MEDS: PRENATAL VITAMINS W/ FOLIC ACID TABLET (FP) PO SCH (10:52)
[2017-11-27] MEDS: BACITRACIN 0.9 GM PACKET TP SCH ×2 (10:52→21:18)
[2017-11-27] MEDS: NICOTINE 21 MG/24 HOURS TOPICAL PATCH TD SCH (10:52)
[2017-11-27] MEDS: DOCUSATE SODIUM 100 MG PO SCH ×2 (10:53→21:18)
[2017-11-27] MEDS: PATIENT'S OWN MEDICATION (NON-FORMULARY) (Ferrous Sulfate [Iron] 325 MG) PO SCH (10:54)
[2017-11-27] MEDS: PATIENT'S OWN MEDICATION (NON-FORMULARY) (Efavirenz/Emtricitab/Tenofovir 1 TAB) PO SCH (10:55)
[2017-11-27] MEDS: THIAMINE HCL 100 MG TABLET (FP) PO SCH (21:17)
[2017-11-27] MEDS: DOXEPIN HCL 50 MG CAPSULE PO SCH (21:17)
[2017-11-27] MEDS: MELATONIN 5 MG TABLETS PO PRN (21:18)
[2017-11-27] MEDS: MICONAZOLE NITRATE VG SCH (21:19)
[2017-11-28] MEDS ORDERED: METHADONE HCL 40 MG DISPERSABLE TABLET ONE (03:29)
[2017-11-28] MEDS ORDERED: METHADONE HCL 10 MG TABLET ONE (03:29)
[2017-11-28] MEDS: EYE TP SCH ×2 (06:54→13:40)
[2017-11-28] MEDS: METHADONE 80 MG, METHADONE 20 MG PO SCH (06:54)
[2017-11-28] MEDS: [UNRECOGNIZED DRUG - OTHER] TP SCH ×2 (06:54→13:40)
[2017-11-28] MEDS: ERYTHROMYCIN 0.5% TP SCH ×2 (06:54→13:40)
[2017-11-28] MEDS: hydrOXYzine PAMOATE 50 MG CAPSULE (FP) PO PRN ×2 (06:55→17:57)
[2017-11-28] MEDS: AMOXICILLIN 500 MG CAPSULE (FP) PO SCH ×2 (06:55→13:40)
[2017-11-28 07:14] VITALS: BP 110/71; PULSE 62; TEMP 98
[2017-11-28] MEDS: PATIENT'S OWN MEDICATION (NON-FORMULARY) (Efavirenz/Emtricitab/Tenofovir 1 TAB) PO SCH (09:55)
[2017-11-28] MEDS: BACITRACIN 0.9 GM PACKET TP SCH (09:55)
[2017-11-28] MEDS: DOCUSATE SODIUM 100 MG PO SCH (09:55)
[2017-11-28] MEDS: PATIENT'S OWN MEDICATION (NON-FORMULARY) (Ferrous Sulfate [Iron] 325 MG) PO SCH (09:56)
[2017-11-28] MEDS: NICOTINE 21 MG/24 HOURS TOPICAL PATCH TD SCH (09:56)
[2017-11-28] MEDS: QUEtiapine FUMARATE 200 MG TABLET PO SCH (09:57)
[2017-11-28] MEDS: PRENATAL VITAMINS W/ FOLIC ACID TABLET (FP) PO SCH (09:57)
[2017-11-28] MEDS ORDERED: PT OWN MED DRAWER 7, Y5N ONE ×2 (11:49→19:04)
[2017-11-28] MEDS: MAG HYDROX/AL HYDROX/SIMETH 30 ML UNIT-DOSE CUP PO PRN (17:58)
== END 2017-11-28 19:05 | disposition left against medical advice (07) | DRG 770 ==
LOC: YASAS 08:40 → Y3E 11:34
PROVIDERS: ADMIT Psychiatry & Neurology Psychiatry; ATTEND Psychiatry & Neurology Psychiatry
PROC: HZ42ZZZ Group Counseling for Substance Abuse Treatment, Cognitive-Behavioral (ICD-10-PCS; principal; 2017-11-18)
DX: F11.20 Opioid dependence, uncomplicated (principal); F10.20 Alcohol dependence, uncomplicated; F14.20 Cocaine dependence, uncomplicated; F12.20 Cannabis dependence, uncomplicated; F17.213 Nicotine dependence, cigarettes, with withdrawal; Z21 Asymptomatic human immunodeficiency virus [HIV] infection status; F34.1 Dysthymic disorder; F31.9 Bipolar disorder, unspecified; I10 Essential (primary) hypertension; K21.9 Gastro-esophageal reflux disease without esophagitis; D50.9 Iron deficiency anemia, unspecified; R63.4 Abnormal weight loss; Z68.22 Body mass index [BMI] 22.0-22.9, adult
CPT/HCPCS: 90670; 90688; G0008; G0009

== ENCOUNTER 2018-11-30 10:48 | Inpatient (IN) | payer OTHER ==
[2018-11-30 11:47] VITALS: BMI 20.9
--- NOTE | 2018-11-30 12:21 | HP ---
CIWA Score Nausea/Vomitin Muscle Tremors: 1-None Visible, but [place] Anxiety: 1-Mildly Anxious Agitation: 0-Normal Activity Paroxysmal Sweats: 1-Minimal Palms Moist Orientation: 0-Oriented Tacttile Disturbances: 0-None Auditory Disturbances: 0-None Visual Disturbances: 0-None Headache: 0-None Present CIWA-Ar Total Score: 6 - Admission Criteria OASAS Guidelines: Admission for Medically Managed Detox: Requires at least one of the followin. CIWA greater than 12 2. Seizures within the past 24 hours 3. Delirium tremens within the past 24 hours 4. Hallucinations within the past 24 hours 5. Acute intervention needed for co occurring medical disorder 6. Acute intervention needed for co occurring psychiatric disorder 7. Severe withdrawal that cannot be handled at a lower level of care (continued vomiting, continued diarrhea, abnormal vital signs) requiring intravenous medication and/or fluids 8. Admitting History and Physical - Past Medical History ...LMP: 08/23/17 - Smoking History Smoking history: Current every day smoker Have you smoked in the past 12 months: Yes Aproximately how many cigarettes per day: 10 - Alcohol/Substance Use Hx Alcohol Use: No Admission [facility] Chief Complaint: "detox from alcohol" Allergies/Adverse Reactions: Allergies Allergy/AdvReac Type Severity Reaction Status Date / Time sulfamethoxazole AdvReac Severe Hives Verified 11/30/18 11:34 [From Bactrim] trimethoprim [From Bactrim] AdvReac Severe Hives Verified 11/30/18 11:34 History of Present Illness: 43 year old female with a past medical history of HIV (has not taken meds in 2 months) alcohol/heroin abuse, on 70mg methadone presents for alcohol detox. Last in detox/rehab 1 month ago, relapsed. Never had a seizure. Alcohol: 1 bottle of hennesy every day, last drink yesterday; never had alcohol withdrawal seizure Heroin: last used yesterday, 1 pouch; snorts, injected once the day before yesterday, never overdosed, uses once a week Methadone: on 70mg every day from program, occasionally gets methadone off the street Cocaine: 20 dollar pouch every week, day before yesterday (snorts); Living situation: 2 sons and 2 daughters Patient somnolent and too intoxicated-appearing to finish history - Ebola screening Have you traveled outside of the country in the last 21 days: No (N) Have you had contact with anyone from an Ebola affected area: No Do you have a fever: No Patient History - Patient Medical History Hx Anemia: No Hx Asthma: No Hx Chronic Obstructive Pulmonary Disease (COPD): No Hx Cancer: No Hx Cardiac Disorders: No Hx Congestive Heart Failure: No Hx Hypertension: No Hx Hypercholesterolemia: No Hx Pacemaker: No HX Cerebrovascular Accident: No Hx Seizures: No Hx Dementia: No Hx Diabetes: No Hx Gastrointestinal Disorders: No Hx Liver Disease: No Hx Genitourinary Disorders: No Hx Sexually Transmitted Disorders: Yes (HIV POSITIVE) Hx Renal Disease (ESRD): No Hx Thyroid Disease: No Hx Human Immunodeficiency Virus (HIV): Yes (DX 2011) Hx Hepatitis C: No Hx Depression: Yes Hx Suicide Attempt: No Hx Bipolar Disorder: Yes Hx Schizophrenia: No - Patient Surgical History Past Surgical History: Yes Hx Neurologic Surgery: No Hx Cataract Extraction: No Hx Cardiac Surgery: No Hx Lung Surgery: No Hx Breast Surgery: No Hx Breast Biopsy: No Hx Abdominal Surgery: No Hx Appendectomy: No Hx Cholecystectomy: No Hx Genitourinary Surgery: No Hx Section: Yes (1992, 1999, 2006) Hx Orthopedic Surgery: Yes (R FOOT BUNION SX) Hx Hysterectomy: No Anesthesia Reaction: No - PPD History Date: 06/02/17 Results: 0mm - Reproductive History Last Menstrual Period: 08/23/17 - Smoking Cessation Smoking history: Current every day smoker Have you smoked in the past 12 months: Yes Aproximately how many cigarettes per day: 10 Cigars Per Day: 0 Hx Chewing Tobacco Use: No Initiated information on smoking cessation: Yes 'Breaking Loose' booklet given: 11/30/18 - Substances abused Alcohol Substance route: Oral Frequency: Daily Amount used: $10 DELON, Age of first use: 18 Date of last use: 11/28/18 Cocaine Substance route: Inhalation Frequency: 1-2 times per week Amount used: $20 Age of first use: 23 Date of last use: 11/28/18 Heroin Substance route: Inhalation Frequency: 3-6 times per week Amount used: $20 Age of first use: 40 Date of last use: 11/29/18 Admission Physical Exam [facility] - Vital Signs Vital Signs: Vital Signs - 24 hr 11/30/18 11:37 Temperature 97.6 F Pulse Rate 63 Respiratory 20 Rate Blood Pressure 98/62 - Physical General Appearance: Yes: Intoxicated HEENTM: Yes: Normal ENT Inspection, Normocephalic, TAD, Pharynx Normal Respiratory: Yes: Chest Non-Tender, Lungs Clear, Normal Breath Sounds, No Respiratory Distress, No Accessory Muscle Use Neck: Yes: Within Normal Limits Breast: Yes: Within Normal Limits, Axillae without masses Cardiology: Yes: Regular Rhythm, Regular Rate Abdominal: Yes: Normal Bowel Sounds, Non Tender, Flat, Soft Genitourinary: Yes: Within Normal Limits Back: Yes: Within Normal Limits Musculoskeletal: Yes: full range of Motion Extremities: Yes: Within Normal Limits Neurological: Yes: Within Normal Limits, commissary steward II-XII NML intact, Fully Oriented, Alert, Motor Strength 5/5, Normal Mood/Affect Integumentary: Yes: Normal Color, Dry, Warm Lymphatic: Yes: Within Normal Limits Cleared for Admission S - Detox or Rehab [facility] Level of Care: Medically Supervised Inpatient Rehab Admission - Rehab Decision to Admit Inpatient rehab admission?: Yes - Initial Determination Are CD services needed?: Yes Free of communicable disease: No Not in need of hospitalization: Yes - Rehab Admission Criteria Previous failed treatment: Yes Poor recovery environment: Yes Comorbidities: Yes Lacks judgement: Yes Patient is meeting Inpatient Rehab admission criteria:: Yes
[2018-11-30] MEDS ORDERED: ACETAMINOPHEN 325 MG TABLET (FP) PO PRN (12:44)
[2018-11-30] MEDS ORDERED: IBUPROFEN 400 MG TABLET (FP) PO PRN (12:44)
[2018-11-30] MEDS ORDERED: guaiFENesin 200 MG/10 ML 10 ML UNIT-DOSE CUPS PO PRN (12:44)
[2018-11-30] MEDS ORDERED: MENTHOL/PHENOL 1 EACH UD MM PRN (12:44)
[2018-11-30] MEDS ORDERED: MAGNESIUM CITRATE 300 ML BOTTLE PO PRN (12:44)
[2018-11-30] MEDS ORDERED: MAGNESIUM HYDROX 2400MG/30ML ORAL SUSPENSION 30 ML CUP PO PRN (12:44)
[2018-11-30] MEDS ORDERED: P-EPHED 60MG/TRIPROLIDI 2.5MG TABLET PO PRN (12:44)
[2018-11-30] MEDS ORDERED: LOPERAMIDE HCL 2 MG CAPSULE PO PRN (12:44)
--- NOTE | 2018-11-30 12:45 | PN ---
Teaching Attending Note Name of Resident: Arnel Evans ATTENDING PHYSICIAN STATEMENT I saw and evaluated the patient. I reviewed the resident's note and discussed the case with the resident. I agree with the resident's findings and plan as documented. SUBJECTIVE: 43 year old female here for etoh detox , claims 1 bottle liquor / day , latest use yesterday , current symptoms as above CIWA -6 , pt is very poor historian , falls asleep during the interview and is awakened w/ difficulty by verbal stimuli , denies w/d seizures. on MMTP , current daily dose 70 mg PMHx : HIV (has not taken meds in 2 months) alcohol/heroin abuse, on 70mg methadone presents for alcohol detox. Last in detox/rehab 1 month ago, relapsed. Never had a seizure. Heroin: ongoing use while on MMTP , claims planning to leave program . Cocaine: 20 dollars/ week via inhalation , denies IVDU OBJECTIVE: drowsy , lethargic . Vital Signs - 24 hr 11/30/18 11:37 Temperature 97.6 F Pulse Rate 63 Respiratory 20 Rate Blood Pressure 98/62 ASSESSMENT AND PLAN: Opioid dependence on agonist therapy / Cocaine abuse, episodic , cannabis use , episodic , Alcohol dependence : rehab recommended
--- NOTE | 2018-11-30 15:06 | PN ---
S CIWA - CIWA Score Nausea/Vomitin-No Nausea/No Vomiting Muscle Tremors: 5 Anxiety: 4-Mod. Anxious/Guarded Agitation: 3 Paroxysmal Sweats: 1-Minimal Palms Moist Orientation: 0-Oriented Tacttile Disturbances: 2-Mild Itch/Numbness/Burn Auditory Disturbances: 0-None Visual Disturbances: 0-None Headache: 3-Moderate CIWA-Ar Total Score: 18 [facility] COWS - Scale Resting Pulse: 0= [place] 80 or Below Sweatin= Chills/Flushing Restless Observation: 0= Sits Still Pupil Size: 1= Pupils >than Normal Bone or Joint Aches: 2= Severe Diffuse Aches Runny Nose/ Eye Tearin= Nasal Congestion GI Upset > 30mins: 1= Stomach Cramp Tremor Observation of Outstretched Hands: 4= Gross Tremor/Twitching Yawning Observation: 0= None Anxiety or Irritability: 2=Irritable/Anxious Goose Flesh Skin: 0=Smooth Skin COWS Score: 12 B[facility] Progress Note (SOAP) Subjective: patien reports feeling jittery, anxious, shaky. Unable to hold her fork to eat. Reports body aches. her last drink was 11/29. Her last heroin use was 11/28. Last methadone dose was 11/29. Most likely withdrawing from methadone as well. Objective: General: appears anxious and in discomfort HEENTM: pupils> 1mm Lungs: clear Heart: s1 s2 Abd: soft, non-tender, +BS Neuro: Cn 2-12 intact; hand tremors, gross 11/30/18 15:11 11/30/18 15:11 Assessment: patient in active withdrawal, appears to be symptomatic for ETOH withdrawl; Most likely withdrawing from methadone as well. 11/30/18 15:12 11/30/18 15:17 11/30/18 15:18 Plan: Discussed suboxone treatment with patient. She is not interested in that at the present time and wants to be on methadone. Agreed to vistaril and flexeril to help with her present withdrawal symptoms. Will continue to monitor.
[2018-11-30] MEDS: CYCLOBENZAPRINE HCL 10 MG TABLET (FP) PO SCH ×2 (15:26→21:58)
[2018-11-30] MEDS: hydrOXYzine PAMOATE 25 MG CAPSULE (FP) PO PRN ×2 (15:26→19:06)
[2018-11-30] MEDS: THIAMINE HCL 100 MG TABLET (FP) PO SCH (21:58)
[2018-11-30] MEDS ORDERED: MELATONIN 5 MG TABLETS PO PRN (22:00)
[2018-12-01] MEDS: CYCLOBENZAPRINE HCL 10 MG TABLET (FP) PO SCH ×3 (07:03→22:09)
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
[2018-12-01] MEDS ORDERED: METHADONE HCL 10 MG TABLET PO SCH (07:45)
[2018-12-01] MEDS ORDERED: METHADONE HCL 10 MG TABLET ONE (09:09)
[2018-12-01] MEDS ORDERED: METHADONE HCL 40 MG DISPERSABLE TABLET ONE (09:10)
[2018-12-01] MEDS: METHADONE 40 MG, METHADONE 30 MG PO SCH (09:11)
[2018-12-01] MEDS: PRENATAL VITAMINS W/ FOLIC ACID TABLET (FP) PO SCH (09:11)
[2018-12-01] MEDS ORDERED: FLU VACCINE QUAD 60 MCG/0.5 ML (MDV 19-20) IM ONE (12:00)
[2018-12-01 12:08] LABS: HEMATOCRIT 34.9 % (32.4-45.2); HEMOGLOBIN 11.7 GM/dL (10.7-15.3); MCH 29.1 pg (25.7-33.7); MCHC 33.6 g/dl (32.0-36.0); MEAN CELL VOLUME 86.7 fl (80-96); MEAN PLT VOLUME 10.2 fl (7.5-11.1); PLATELET COUNT 175 K/MM3 (134-434); RBC 4.02 M/mm3 (3.60-5.2); RDW 14.3 % (11.6-15.6); WHITE BLOOD COUNT 7.1 K/mm3 (4.0-10.0)
[2018-12-01 12:12] LABS: ALBUMIN 2.8 g/dl (3.4-5.0); BILIRUBIN,TOTAL 0.2 mg/dL (0.2-1); BLOOD UREA NITROGEN 14.1 mg/dL (7-18); CALCIUM 8.5 mg/dL (8.5-10.1); CREATININE 0.6 mg/dL (0.55-1.3)
[2018-12-01] MEDS: hydrOXYzine PAMOATE 25 MG CAPSULE (FP) PO PRN (22:10)
[2018-12-01] MEDS: THIAMINE HCL 100 MG TABLET (FP) PO SCH (22:11)
[2018-12-01] MEDS: QUEtiapine FUMARATE 100 MG TABLET (FP) PO SCH (22:11)
[2018-12-01] MEDS: SUVOREXANT 10 MG TABLET PO PRN (22:11)
[2018-12-02] MEDS ORDERED: METHADONE HCL 40 MG DISPERSABLE TABLET ONE (04:18)
[2018-12-02] MEDS ORDERED: METHADONE HCL 10 MG TABLET ONE (04:18)
[2018-12-02] MEDS ORDERED: METHADONE 40 MG, METHADONE 30 MG PO SCH (06:00)
[2018-12-02] MEDS: METHADONE 40 MG, METHADONE 30 MG PO SCH (06:48)
[2018-12-02] MEDS: CYCLOBENZAPRINE HCL 10 MG TABLET (FP) PO SCH ×3 (06:49→21:40)
[2018-12-02] MEDS: PRENATAL VITAMINS W/ FOLIC ACID TABLET (FP) PO SCH (09:37)
[2018-12-02] MEDS: COLLOIDAL OATMEAL 1 BAR EACH TP PRN (10:01)
[2018-12-02] MEDS ORDERED: NICOTINE POLACRILEX 2 MG GUM BUC PRN (10:21)
[2018-12-02] MEDS: NICOTINE 21 MG/24 HOURS TOPICAL PATCH TD SCH (10:30)
[2018-12-02 12:27] LABS: HYALINE CASTS 2 /lpf (0-8); URINE APPEARANCE CLOUDY; URINE BACTERIA 747.5 /hpf (NEGATIVE); URINE BILIRUBIN NEGATIVE (NEGATIVE); URINE COLOR YELLOW; URINE GLUCOSE (UA) NEGATIVE (NEGATIVE); URINE KETONE NEGATIVE (NEGATIVE); URINE LEUK ESTERASE 3+ (NEGATIVE); URINE NITRITE POSITIVE (NEGATIVE); URINE PROTEIN NEGATIVE (NEGATIVE); URINE RBC 1 /hpf (0-4); URINE UROBILINOGEN 0.2 mg/dL (0.2-1.0); URINE WBC 61 /hpf (0-5)
[2018-12-02 13:25] LABS: URINE CRYSTALS CALCIUM OXALATE=1+ /hpf
[2018-12-02] MEDS: QUEtiapine FUMARATE 100 MG TABLET (FP) PO SCH (21:40)
[2018-12-02] MEDS: THIAMINE HCL 100 MG TABLET (FP) PO SCH (21:41)
[2018-12-03] MEDS: hydrOXYzine PAMOATE 25 MG CAPSULE (FP) PO PRN ×4 (03:09→23:25)
[2018-12-03] MEDS ORDERED: METHADONE HCL 10 MG TABLET ONE (04:13)
[2018-12-03] MEDS ORDERED: METHADONE HCL 40 MG DISPERSABLE TABLET ONE (04:13)
[2018-12-03] MEDS: METHADONE 40 MG, METHADONE 30 MG PO SCH (06:27)
[2018-12-03] MEDS: CYCLOBENZAPRINE HCL 10 MG TABLET (FP) PO SCH ×3 (06:28→21:19)
[2018-12-03] MEDS: PRENATAL VITAMINS W/ FOLIC ACID TABLET (FP) PO SCH (10:16)
[2018-12-03] MEDS: NICOTINE 21 MG/24 HOURS TOPICAL PATCH TD SCH (10:16)
--- NOTE | 2018-12-03 11:57 | PN ---
[facility] Progress Note Note: Pt c/o burning on urination. Denies vaginal discharge. Laboratory Tests 12/01/18 12/01/18 12/01/18 08:54 08:54 08:54 WBC 7.1 RBC 4.02 Hgb 11.7 Hct 34.9 MCV 86.7 MCH 29.1 MCHC 33.6 RDW 14.3 D Plt Count 175 MPV 10.2 Sodium 145 Potassium 4.0 Chloride 108 H Carbon Dioxide 32 Anion Gap 5 L BUN 14.1 Creatinine 0.6 Est GFR (CKD-EPI)AfAm 131.22 Est GFR (CKD-EPI)NonAf 113.22 Random Glucose 59 L Calcium 8.5 Total Bilirubin 0.2 AST 17 ALT 12 L Alkaline Phosphatase 104 Total Protein 7.0 Albumin 2.8 L Urine Color Urine Appearance Urine pH Ur Specific [place] Urine Protein Urine Glucose (UA) Urine Ketones Urine Blood Urine Nitrite Urine Bilirubin Urine Urobilinogen Ur Leukocyte Esterase Urine WBC (Auto) Urine RBC (Auto) Urine Casts (Auto) U Epithel Cells (Auto) Urine Crystals (Auto) Urine Bacteria (Auto) RPR Titer Nonreactive Hep C Ab Diagnostic 12/01/18 12/02/18 08:54 10:25 WBC RBC Hgb Hct MCV MCH MCHC RDW Plt Count MPV Sodium Potassium Chloride Carbon Dioxide Anion Gap BUN Creatinine Est GFR (CKD-EPI)AfAm Est GFR (CKD-EPI)NonAf Random Glucose Calcium Total Bilirubin AST ALT Alkaline Phosphatase Total Protein Albumin Urine Color Yellow Urine Appearance Cloudy Urine pH 6.0 Ur Specific [place] 1.016 Urine Protein Negative Urine Glucose (UA) Negative Urine Ketones Negative Urine Blood Trace Urine Nitrite Positive H Urine Bilirubin Negative Urine Urobilinogen 0.2 Ur Leukocyte Esterase 3+ H Urine WBC (Auto) 61 Urine RBC (Auto) 1 Urine Casts (Auto) 2 U Epithel Cells (Auto) 3.0 Urine Crystals (Auto) Calcium oxalate=1+ Urine Bacteria (Auto) 747.5 RPR Titer Hep C Ab Diagnostic 0.2 Abnormal UA symptomatic A/P UTI Nitrofurantoin 50 mg po q6h x 7 days Increase po fluids
[2018-12-03] MEDS: NITROFURANTOIN MACROCRYSTAL 50 MG CAPSULE (FP) PO SCH ×3 (13:52→23:24)
[2018-12-03] MEDS: MAG HYDROX/AL HYDROX/SIMETH 30 ML UNIT-DOSE CUP PO PRN ×2 (14:45→20:45)
[2018-12-03 14:47] LABS: EPI CELLS 3.3 /HPF (0-5/HPF); HYALINE CASTS 3 /lpf (0-8); URINE APPEARANCE CLOUDY; URINE BACTERIA >9000 /hpf (NEGATIVE); URINE BILIRUBIN NEGATIVE (NEGATIVE); URINE COLOR YELLOW; URINE GLUCOSE (UA) NEGATIVE (NEGATIVE); URINE KETONE NEGATIVE (NEGATIVE); URINE LEUK ESTERASE 2+ (NEGATIVE); URINE NITRITE POSITIVE (NEGATIVE); URINE PROTEIN NEGATIVE (NEGATIVE); URINE RBC 6 /hpf (0-4); URINE UROBILINOGEN 0.2 mg/dL (0.2-1.0); URINE WBC 22 /hpf (0-5)
[2018-12-03 14:59] LABS: URINE CRYSTALS CALCIUM OXALATE=2+ /hpf
[2018-12-03] MEDS ORDERED: PT OWN MED DRAWER 7, Y5N ONE (17:16)
[2018-12-03] MEDS: QUEtiapine FUMARATE 100 MG TABLET (FP) PO SCH (21:19)
[2018-12-03] MEDS: SUVOREXANT 10 MG TABLET PO PRN (21:20)
[2018-12-03] MEDS: THIAMINE HCL 100 MG TABLET (FP) PO SCH (21:20)
[2018-12-04] MEDS: hydrOXYzine PAMOATE 25 MG CAPSULE (FP) PO PRN ×4 (04:48→21:15)
[2018-12-04] MEDS ORDERED: METHADONE HCL 10 MG TABLET ONE (06:19)
[2018-12-04] MEDS ORDERED: METHADONE HCL 40 MG DISPERSABLE TABLET ONE (06:19)
[2018-12-04] MEDS ORDERED: PT OWN MED DRAWER 7, Y5N ONE ×3 (06:20→16:47)
[2018-12-04] MEDS: NITROFURANTOIN MACROCRYSTAL 50 MG CAPSULE (FP) PO SCH ×4 (06:47→23:13)
[2018-12-04] MEDS: METHADONE 40 MG, METHADONE 30 MG PO SCH (06:48)
[2018-12-04] MEDS: CYCLOBENZAPRINE HCL 10 MG TABLET (FP) PO SCH ×3 (06:48→21:15)
[2018-12-04] MEDS: PRENATAL VITAMINS W/ FOLIC ACID TABLET (FP) PO SCH (10:08)
[2018-12-04] MEDS: NICOTINE 21 MG/24 HOURS TOPICAL PATCH TD SCH (10:08)
[2018-12-04] MEDS: MAG HYDROX/AL HYDROX/SIMETH 30 ML UNIT-DOSE CUP PO PRN ×2 (13:52→21:16)
[2018-12-04] MEDS: THIAMINE HCL 100 MG TABLET (FP) PO SCH (21:15)
[2018-12-04] MEDS: QUEtiapine FUMARATE 100 MG TABLET (FP) PO SCH (21:15)
[2018-12-05] MEDS: hydrOXYzine PAMOATE 25 MG CAPSULE (FP) PO PRN ×4 (04:12→21:23)
[2018-12-05] MEDS ORDERED: METHADONE HCL 40 MG DISPERSABLE TABLET ONE (06:01)
[2018-12-05] MEDS ORDERED: METHADONE HCL 10 MG TABLET ONE (06:01)
[2018-12-05] MEDS: CYCLOBENZAPRINE HCL 10 MG TABLET (FP) PO SCH ×3 (06:54→21:23)
[2018-12-05] MEDS: NITROFURANTOIN MACROCRYSTAL 50 MG CAPSULE (FP) PO SCH ×4 (06:54→23:16)
[2018-12-05] MEDS: METHADONE 40 MG, METHADONE 30 MG PO SCH (06:54)
[2018-12-05] MEDS: PRENATAL VITAMINS W/ FOLIC ACID TABLET (FP) PO SCH (10:11)
[2018-12-05] MEDS: NICOTINE 21 MG/24 HOURS TOPICAL PATCH TD SCH (10:11)
[2018-12-05] MEDS: MAG HYDROX/AL HYDROX/SIMETH 30 ML UNIT-DOSE CUP PO PRN (16:39)
[2018-12-05] MEDS ORDERED: PT OWN MED DRAWER 7, Y5N ONE ×2 (16:48→23:18)
[2018-12-05] MEDS: QUEtiapine FUMARATE 100 MG TABLET (FP) PO SCH (21:23)
[2018-12-05] MEDS: THIAMINE HCL 100 MG TABLET (FP) PO SCH (21:23)
[2018-12-05] MEDS: SUVOREXANT 10 MG TABLET PO PRN (21:24)
[2018-12-06] MEDS ORDERED: METHADONE HCL 10 MG TABLET ONE (05:58)
[2018-12-06] MEDS ORDERED: METHADONE HCL 40 MG DISPERSABLE TABLET ONE (05:58)
[2018-12-06] MEDS: METHADONE 40 MG, METHADONE 30 MG PO SCH (06:56)
[2018-12-06] MEDS: CYCLOBENZAPRINE HCL 10 MG TABLET (FP) PO SCH ×3 (06:56→21:10)
[2018-12-06] MEDS: NITROFURANTOIN MACROCRYSTAL 50 MG CAPSULE (FP) PO SCH ×4 (06:56→23:33)
[2018-12-06] MEDS: hydrOXYzine PAMOATE 25 MG CAPSULE (FP) PO PRN ×3 (06:57→21:09)
[2018-12-06] MEDS: NICOTINE 21 MG/24 HOURS TOPICAL PATCH TD SCH (09:55)
[2018-12-06] MEDS: PRENATAL VITAMINS W/ FOLIC ACID TABLET (FP) PO SCH (09:55)
[2018-12-06] MEDS ORDERED: PT OWN MED DRAWER 7, Y5N ONE ×5 (11:56→17:46)
--- NOTE | 2018-12-06 14:23 | PN ---
[facility] Progress Note Note: Microbiology 12/03/18 11:30 Urine - Urine Clean Catch Urine Culture - Final Escherichia Coli Sensitivity reviewed and sensitive to current regimen Pt is currently on Nitrofurantoin 50 mg q6h x 7 days. Continue treatment.
--- NOTE | 2018-12-06 14:47 | PN ---
[facility] Progress Note Note: Patient reports experiencung difficulty to sleep despite taking Seroquel 100 mg/ hs and Belsomra 10 mg/hs prn. Requests to increase Seroquel dosage to 200 mg/hs as she was on Seroquel 300 mg/hs in the past. Will increase Seroquel to 200 mg/ hs
[2018-12-06] MEDS ORDERED: HYDROCORTISONE 1% TOPICAL CREAM 30 GM TUBE TP PRN (15:51)
[2018-12-06] MEDS: MINERAL OIL/PETROLAT/WATER TOPICAL CREAM 113 GM JAR TP SCH (19:10)
[2018-12-06] MEDS: MAG HYDROX/AL HYDROX/SIMETH 30 ML UNIT-DOSE CUP PO PRN (19:10)
[2018-12-06] MEDS: THIAMINE HCL 100 MG TABLET (FP) PO SCH (21:09)
[2018-12-06] MEDS: QUEtiapine FUMARATE 200 MG TABLET PO SCH (21:10)
[2018-12-06] MEDS ORDERED: SUVOREXANT 10 MG TABLET PO PRN (22:00)
[2018-12-07] MEDS: hydrOXYzine PAMOATE 25 MG CAPSULE (FP) PO PRN ×3 (03:15→17:03)
[2018-12-07] MEDS ORDERED: METHADONE HCL 10 MG TABLET ONE (04:07)
[2018-12-07] MEDS ORDERED: METHADONE HCL 40 MG DISPERSABLE TABLET ONE (04:07)
[2018-12-07] MEDS ORDERED: PT OWN MED DRAWER 7, Y5N ONE ×3 (04:08→16:45)
[2018-12-07] MEDS: METHADONE 40 MG, METHADONE 30 MG PO SCH (06:17)
[2018-12-07] MEDS: NITROFURANTOIN MACROCRYSTAL 50 MG CAPSULE (FP) PO SCH ×3 (06:18→17:02)
[2018-12-07] MEDS: CYCLOBENZAPRINE HCL 10 MG TABLET (FP) PO SCH ×3 (06:18→21:58)
[2018-12-07] MEDS: MINERAL OIL/PETROLAT/WATER TOPICAL CREAM 113 GM JAR TP SCH (09:43)
[2018-12-07] MEDS: NICOTINE 21 MG/24 HOURS TOPICAL PATCH TD SCH (09:44)
[2018-12-07] MEDS: PRENATAL VITAMINS W/ FOLIC ACID TABLET (FP) PO SCH (09:44)
[2018-12-07] MEDS: MAG HYDROX/AL HYDROX/SIMETH 30 ML UNIT-DOSE CUP PO PRN ×2 (15:28→21:59)
[2018-12-07] MEDS: QUEtiapine FUMARATE 200 MG TABLET PO SCH (21:58)
[2018-12-07] MEDS: THIAMINE HCL 100 MG TABLET (FP) PO SCH (21:58)
[2018-12-07] MEDS ORDERED: SUVOREXANT 10 MG TABLET PO PRN (22:00)
[2018-12-08] MEDS ORDERED: PT OWN MED DRAWER 7, Y5N ONE ×3 (00:58→23:06)
[2018-12-08] MEDS: NITROFURANTOIN MACROCRYSTAL 50 MG CAPSULE (FP) PO SCH ×5 (01:01→23:06)
[2018-12-08] MEDS ORDERED: METHADONE HCL 10 MG TABLET ONE (04:05)
[2018-12-08] MEDS ORDERED: METHADONE HCL 40 MG DISPERSABLE TABLET ONE (04:05)
[2018-12-08] MEDS: METHADONE 40 MG, METHADONE 30 MG PO SCH (06:44)
[2018-12-08] MEDS: CYCLOBENZAPRINE HCL 10 MG TABLET (FP) PO SCH ×3 (06:45→21:34)
[2018-12-08] MEDS: hydrOXYzine PAMOATE 25 MG CAPSULE (FP) PO PRN ×4 (06:46→21:34)
[2018-12-08] MEDS: MAG HYDROX/AL HYDROX/SIMETH 30 ML UNIT-DOSE CUP PO PRN ×2 (07:48→22:14)
[2018-12-08] MEDS: NICOTINE 21 MG/24 HOURS TOPICAL PATCH TD SCH (10:11)
[2018-12-08] MEDS: PRENATAL VITAMINS W/ FOLIC ACID TABLET (FP) PO SCH (10:11)
[2018-12-08] MEDS: MINERAL OIL/PETROLAT/WATER TOPICAL CREAM 113 GM JAR TP SCH (10:12)
--- NOTE | 2018-12-08 10:42 | PN ---
[facility] Progress Note (SOAP) Subjective: patient c/o cough with yellow sputum, sore throat and pain on right side of neck. Objective: 12/08/18 10:38 CBC, BMP 12/01/18 08:54 12/01/18 08:54 Vital Signs (72 hours) 12/06/18 12/06/18 12/07/18 00:30 07:08 03:30 Temperature 97.8 F Pulse Rate 80 Respiratory 17 18 16 Rate Blood Pressure 105/72 12/07/18 12/08/18 12/08/18 06:43 00:30 03:30 Temperature 97.8 F Pulse Rate 77 Respiratory 18 16 16 Rate Blood Pressure 114/79 12/08/18 07:06 Temperature 97.9 F Pulse Rate 85 Respiratory 18 Rate Blood Pressure 94/63 P/E: General: no apparent distress HEENTM PERRLA, Throat clear, Ears: left-cerumen present, Right: cerumen present , ear canal reddened, unable for visualize TM; sinus non-tender Neck: supple Lungs: clear Heart: s1 s2 Lymph: tender submandibular and superficial lymph notes on the right side 12/08/18 10:50 12/08/18 10:51 Assessment: Upper Respiratory Infection with otitis externa 12/08/18 10:41 12/08/18 10:54 Plan: ear drops and amoxicillin ordered. Encouraged to take Tylenol for pain, use cepacol to relieve throat discomfort. Continue to monitor.
[2018-12-08] MEDS ORDERED: AMOXICILLIN 500 MG CAPSULE (FP) PO SCH (11:00)
[2018-12-08] MEDS: NEOMYCIN/POLYMYXN/HC OTIC SUSPENSION 10 ML BOTTLE AD SCH ×2 (13:54→18:30)
[2018-12-08] MEDS ORDERED: NEOMYCIN/COLISTIN/HC OTIC SUSP 5 ML BOTTLE AD SCH (14:00)
[2018-12-08] MEDS: THIAMINE HCL 100 MG TABLET (FP) PO SCH (21:32)
[2018-12-08] MEDS: QUEtiapine FUMARATE 200 MG TABLET PO SCH (21:34)
[2018-12-09] MEDS: NEOMYCIN/POLYMYXN/HC OTIC SUSPENSION 10 ML BOTTLE AD SCH ×4 (00:19→18:30)
[2018-12-09] MEDS ORDERED: METHADONE HCL 10 MG TABLET ONE (04:15)
[2018-12-09] MEDS ORDERED: METHADONE HCL 40 MG DISPERSABLE TABLET ONE (04:15)
[2018-12-09] MEDS: CYCLOBENZAPRINE HCL 10 MG TABLET (FP) PO SCH (06:40)
[2018-12-09] MEDS: NITROFURANTOIN MACROCRYSTAL 50 MG CAPSULE (FP) PO SCH ×4 (06:40→23:03)
[2018-12-09] MEDS: hydrOXYzine PAMOATE 25 MG CAPSULE (FP) PO PRN ×3 (06:40→21:33)
[2018-12-09] MEDS: METHADONE 40 MG, METHADONE 30 MG PO SCH (06:41)
[2018-12-09] MEDS ORDERED: CYCLOBENZAPRINE HCL 10 MG TABLET (FP) PO PRN (08:13)
[2018-12-09] MEDS: NICOTINE 21 MG/24 HOURS TOPICAL PATCH TD SCH (09:31)
[2018-12-09] MEDS: PRENATAL VITAMINS W/ FOLIC ACID TABLET (FP) PO SCH (09:31)
[2018-12-09] MEDS: MINERAL OIL/PETROLAT/WATER TOPICAL CREAM 113 GM JAR TP SCH (09:32)
[2018-12-09] MEDS: LIDOCAINE 5% TOPICAL PATCH TP SCH (09:57)
--- NOTE | 2018-12-09 11:13 | PN ---
[facility] Progress Note (SOAP) Subjective: Nurses report that patient is drowsy during the day and falling asleep during groups; it may be related to the flexeril. Patient was asked about her drowsiness and reported that today was the first day that she felt as though she got a full night's sleep. She was seen by psychiatry and the seroquel was increased to 200mg hs. She reports generalized body aches that she felt the flexeril may have been helping to relieve. Objective: P/E: General: No apparent distress, alert HEENTM: PERRLA Heart: s1 s2 Luings: clear MSK: full ROM, steady gait Neuro: CN 2-12 intact, fully oriented. 12/09/18 11:11 12/09/18 11:12 CBC, BMP 12/01/18 08:54 12/01/18 08:54 Vital Signs (72 hours) 12/07/18 12/07/18 12/08/18 03:30 06:43 00:30 Temperature 97.8 F Pulse Rate 77 Respiratory 16 18 16 Rate Blood Pressure 114/79 12/08/18 12/08/18 12/09/18 03:30 07:06 00:30 Temperature 97.9 F Pulse Rate 85 Respiratory 16 18 16 Rate Blood Pressure 94/63 12/09/18 12/09/18 03:30 07:01 Temperature 97.6 F Pulse Rate 73 Respiratory 16 18 Rate Blood Pressure 126/86 Assessment: muscle aches- may be residual from withdrawal insomnia- was seen by psychiatry yesterday altered mental status-drowsiness may be the after effects of withdrawal, 12/09/18 11:12 12/09/18 11:13 12/09/18 11:16 Plan: mental status: patient is awake and alert, is not drowsy at this time. Agreed to decreasing dose of flexeril to 5mg and changing dosing schedule to PRN, rather than scheduled and she can take up to 3 dose/day as needed. Muscle pain: lidoderm patch and keely-leyva was added to regimen. Patient was encouraged to take tylenol as needed Insomnia: appears to be resolving with seroquel and with better sleep at night she feels she will not be as drowsy during the day.
[2018-12-09] MEDS ORDERED: PT OWN MED DRAWER 7, Y5N ONE (12:08)
[2018-12-09] MEDS: MAG HYDROX/AL HYDROX/SIMETH 30 ML UNIT-DOSE CUP PO PRN ×2 (14:39→19:51)
[2018-12-09] MEDS: CYCLOBENZAPRINE HCL 5 MG TABLET PO PRN ×2 (14:39→21:33)
[2018-12-09] MEDS: QUEtiapine FUMARATE 200 MG TABLET PO SCH (21:33)
[2018-12-09] MEDS: THIAMINE HCL 100 MG TABLET (FP) PO SCH (21:33)
[2018-12-09] MEDS: LIDOCAINE PATCH REMOVAL MC SCH (21:34)
[2018-12-09] MEDS: METHYL SALICYLATE/MENTHOL OINT 30 GM TUBE TP SCH (21:35)
[2018-12-09] MEDS ORDERED: METHYL SALICYLATE/MENTHOL OINT 30 GM TUBE TP SCH (22:00)
[2018-12-10] MEDS: NEOMYCIN/POLYMYXN/HC OTIC SUSPENSION 10 ML BOTTLE AD SCH ×5 (00:15→23:16)
[2018-12-10] MEDS ORDERED: METHADONE HCL 10 MG TABLET ONE (05:54)
[2018-12-10] MEDS ORDERED: PT OWN MED DRAWER 7, Y5N ONE ×7 (05:55→22:08)
[2018-12-10] MEDS ORDERED: METHADONE HCL 40 MG DISPERSABLE TABLET ONE (05:55)
[2018-12-10] MEDS: hydrOXYzine PAMOATE 25 MG CAPSULE (FP) PO PRN ×3 (06:43→18:13)
[2018-12-10] MEDS: METHADONE 40 MG, METHADONE 30 MG PO SCH (06:43)
[2018-12-10] MEDS: NITROFURANTOIN MACROCRYSTAL 50 MG CAPSULE (FP) PO SCH ×4 (06:44→23:16)
[2018-12-10] MEDS: CYCLOBENZAPRINE HCL 5 MG TABLET PO PRN ×3 (06:45→21:37)
[2018-12-10] MEDS: PRENATAL VITAMINS W/ FOLIC ACID TABLET (FP) PO SCH (09:43)
[2018-12-10] MEDS: LIDOCAINE 5% TOPICAL PATCH TP SCH (09:43)
[2018-12-10] MEDS: NICOTINE 21 MG/24 HOURS TOPICAL PATCH TD SCH (09:43)
[2018-12-10] MEDS: MAG HYDROX/AL HYDROX/SIMETH 30 ML UNIT-DOSE CUP PO PRN ×2 (09:43→19:37)
[2018-12-10] MEDS: MINERAL OIL/PETROLAT/WATER TOPICAL CREAM 113 GM JAR TP SCH (09:46)
[2018-12-10 10:31] LABS: EPI CELLS 2.1 /HPF (0-5/HPF); HYALINE CASTS 1 /lpf (0-8); URINE APPEARANCE CLEAR; URINE BACTERIA 24.2 /hpf (NEGATIVE); URINE BILIRUBIN NEGATIVE (NEGATIVE); URINE COLOR YELLOW; URINE GLUCOSE (UA) NEGATIVE (NEGATIVE); URINE KETONE NEGATIVE (NEGATIVE); URINE LEUK ESTERASE 3+ (NEGATIVE); URINE NITRITE NEGATIVE (NEGATIVE); URINE PROTEIN NEGATIVE (NEGATIVE); URINE RBC 2 /hpf (0-4); URINE UROBILINOGEN 0.2 mg/dL (0.2-1.0); URINE WBC 23 /hpf (0-5)
[2018-12-10] MEDS: QUEtiapine FUMARATE 200 MG TABLET PO SCH (21:37)
[2018-12-10] MEDS: THIAMINE HCL 100 MG TABLET (FP) PO SCH (21:37)
[2018-12-10] MEDS: LIDOCAINE PATCH REMOVAL MC SCH (21:45)
[2018-12-10] MEDS: METHYL SALICYLATE/MENTHOL OINT 30 GM TUBE TP SCH (21:58)
[2018-12-11] MEDS ORDERED: METHADONE HCL 40 MG DISPERSABLE TABLET ONE (03:53)
[2018-12-11] MEDS ORDERED: METHADONE HCL 10 MG TABLET ONE (03:53)
[2018-12-11] MEDS ORDERED: PT OWN MED DRAWER 7, Y5N ONE ×5 (03:54→22:04)
[2018-12-11] MEDS: CYCLOBENZAPRINE HCL 5 MG TABLET PO PRN ×2 (06:27→17:27)
[2018-12-11] MEDS: hydrOXYzine PAMOATE 25 MG CAPSULE (FP) PO PRN ×3 (06:27→21:20)
[2018-12-11] MEDS: NITROFURANTOIN MACROCRYSTAL 50 MG CAPSULE (FP) PO SCH ×4 (06:27→23:55)
[2018-12-11] MEDS: METHADONE 40 MG, METHADONE 30 MG PO SCH (06:27)
[2018-12-11] MEDS: NEOMYCIN/POLYMYXN/HC OTIC SUSPENSION 10 ML BOTTLE AD SCH ×4 (06:28→23:55)
[2018-12-11] MEDS: LIDOCAINE 5% TOPICAL PATCH TP SCH (09:39)
[2018-12-11] MEDS: MINERAL OIL/PETROLAT/WATER TOPICAL CREAM 113 GM JAR TP SCH (09:39)
[2018-12-11] MEDS: NICOTINE 21 MG/24 HOURS TOPICAL PATCH TD SCH (09:39)
[2018-12-11] MEDS: PRENATAL VITAMINS W/ FOLIC ACID TABLET (FP) PO SCH (09:40)
[2018-12-11] MEDS: COLLOIDAL OATMEAL 1 BAR EACH TP PRN (09:42)
[2018-12-11] MEDS: MAG HYDROX/AL HYDROX/SIMETH 30 ML UNIT-DOSE CUP PO PRN ×2 (15:12→22:05)
[2018-12-11] MEDS: QUEtiapine FUMARATE 200 MG TABLET PO SCH (21:18)
[2018-12-11] MEDS: THIAMINE HCL 100 MG TABLET (FP) PO SCH (21:18)
[2018-12-11] MEDS: LIDOCAINE PATCH REMOVAL MC SCH (21:18)
[2018-12-11] MEDS: METHYL SALICYLATE/MENTHOL OINT 30 GM TUBE TP SCH (21:20)
[2018-12-11] MEDS: SUVOREXANT 10 MG TABLET PO PRN (21:20)
[2018-12-12] MEDS: MAG HYDROX/AL HYDROX/SIMETH 30 ML UNIT-DOSE CUP PO PRN (03:25)
[2018-12-12] MEDS ORDERED: METHADONE HCL 10 MG TABLET ONE (03:54)
[2018-12-12] MEDS ORDERED: METHADONE HCL 40 MG DISPERSABLE TABLET ONE (03:55)
[2018-12-12] MEDS: METHADONE 40 MG, METHADONE 30 MG PO SCH (06:45)
[2018-12-12] MEDS: NEOMYCIN/POLYMYXN/HC OTIC SUSPENSION 10 ML BOTTLE AD SCH ×4 (06:45→23:31)
[2018-12-12] MEDS: CYCLOBENZAPRINE HCL 5 MG TABLET PO PRN ×3 (06:46→23:29)
[2018-12-12] MEDS: NITROFURANTOIN MACROCRYSTAL 50 MG CAPSULE (FP) PO SCH ×4 (06:46→23:29)
[2018-12-12] MEDS: hydrOXYzine PAMOATE 25 MG CAPSULE (FP) PO PRN ×3 (06:46→18:29)
[2018-12-12] MEDS ORDERED: PT OWN MED DRAWER 7, Y5N ONE ×4 (08:38→23:28)
[2018-12-12] MEDS: LIDOCAINE 5% TOPICAL PATCH TP SCH (10:01)
[2018-12-12] MEDS: PRENATAL VITAMINS W/ FOLIC ACID TABLET (FP) PO SCH (10:01)
[2018-12-12] MEDS: PANTOPRAZOLE 20 MG TABLET (FP) PO SCH (10:01)
[2018-12-12] MEDS: MINERAL OIL/PETROLAT/WATER TOPICAL CREAM 113 GM JAR TP SCH (10:03)
[2018-12-12] MEDS: NICOTINE 21 MG/24 HOURS TOPICAL PATCH TD SCH (10:03)
[2018-12-12] MEDS: THIAMINE HCL 100 MG TABLET (FP) PO SCH (21:23)
[2018-12-12] MEDS: LIDOCAINE PATCH REMOVAL MC SCH (21:23)
[2018-12-12] MEDS: QUEtiapine FUMARATE 200 MG TABLET PO SCH (21:23)
[2018-12-12] MEDS: SUVOREXANT 10 MG TABLET PO PRN (21:24)
[2018-12-12] MEDS: METHYL SALICYLATE/MENTHOL OINT 30 GM TUBE TP SCH (21:24)
[2018-12-13] MEDS ORDERED: PT OWN MED DRAWER 7, Y5N ONE ×2 (03:36→08:38)
[2018-12-13] MEDS ORDERED: METHADONE HCL 40 MG DISPERSABLE TABLET ONE (06:25)
[2018-12-13] MEDS ORDERED: METHADONE HCL 10 MG TABLET ONE (06:25)
[2018-12-13] MEDS: METHADONE 40 MG, METHADONE 30 MG PO SCH (06:35)
[2018-12-13] MEDS: NEOMYCIN/POLYMYXN/HC OTIC SUSPENSION 10 ML BOTTLE AD SCH ×3 (06:35→18:44)
[2018-12-13] MEDS: NITROFURANTOIN MACROCRYSTAL 50 MG CAPSULE (FP) PO SCH ×3 (06:36→18:43)
[2018-12-13] MEDS: CYCLOBENZAPRINE HCL 5 MG TABLET PO PRN ×2 (06:36→21:13)
[2018-12-13] MEDS: hydrOXYzine PAMOATE 25 MG CAPSULE (FP) PO PRN ×2 (06:36→18:44)
[2018-12-13] MEDS: PRENATAL VITAMINS W/ FOLIC ACID TABLET (FP) PO SCH (10:09)
[2018-12-13] MEDS: PANTOPRAZOLE 20 MG TABLET (FP) PO SCH (10:09)
[2018-12-13] MEDS: NICOTINE 21 MG/24 HOURS TOPICAL PATCH TD SCH (10:09)
[2018-12-13] MEDS: LIDOCAINE 5% TOPICAL PATCH TP SCH (10:09)
[2018-12-13] MEDS: MINERAL OIL/PETROLAT/WATER TOPICAL CREAM 113 GM JAR TP SCH (10:09)
[2018-12-13] MEDS: QUEtiapine FUMARATE 200 MG TABLET PO SCH (21:13)
[2018-12-13] MEDS: LIDOCAINE PATCH REMOVAL MC SCH (21:13)
[2018-12-13] MEDS: THIAMINE HCL 100 MG TABLET (FP) PO SCH (21:13)
[2018-12-13] MEDS: METHYL SALICYLATE/MENTHOL OINT 30 GM TUBE TP SCH (21:14)
[2018-12-13] MEDS ORDERED: SUVOREXANT 10 MG TABLET PO PRN (22:00)
[2018-12-14] MEDS: NEOMYCIN/POLYMYXN/HC OTIC SUSPENSION 10 ML BOTTLE AD SCH ×5 (00:30→23:12)
[2018-12-14] MEDS: NITROFURANTOIN MACROCRYSTAL 50 MG CAPSULE (FP) PO SCH ×5 (00:30→23:12)
[2018-12-14] MEDS: hydrOXYzine PAMOATE 25 MG CAPSULE (FP) PO PRN ×4 (04:52→21:18)
[2018-12-14] MEDS ORDERED: METHADONE HCL 10 MG TABLET ONE (06:01)
[2018-12-14] MEDS ORDERED: PT OWN MED DRAWER 7, Y5N ONE ×3 (06:02→13:24)
[2018-12-14] MEDS ORDERED: METHADONE HCL 40 MG DISPERSABLE TABLET ONE (06:02)
[2018-12-14] MEDS: METHADONE 40 MG, METHADONE 30 MG PO SCH (06:49)
[2018-12-14] MEDS: LIDOCAINE 5% TOPICAL PATCH TP SCH (10:14)
[2018-12-14] MEDS: PANTOPRAZOLE 20 MG TABLET (FP) PO SCH (10:15)
[2018-12-14] MEDS: NICOTINE 21 MG/24 HOURS TOPICAL PATCH TD SCH (10:15)
[2018-12-14] MEDS: PRENATAL VITAMINS W/ FOLIC ACID TABLET (FP) PO SCH (10:15)
[2018-12-14] MEDS: MINERAL OIL/PETROLAT/WATER TOPICAL CREAM 113 GM JAR TP SCH (10:15)
[2018-12-14] MEDS: CYCLOBENZAPRINE HCL 5 MG TABLET PO PRN ×2 (10:17→21:18)
--- NOTE | 2018-12-14 15:09 | DS ---
[facility] Rehab Discharge Summary - [facility] Rehab Discharge Summary Admission Date: 11/30/18 Discharge Date: 12/15/18 - History Present History: Alcohol dependence, [facility] Opioid dependence Additional Comments: Pt is a 43 y/o female admitted to rehab with a hx of SHAHEEN scheduled to discharge on 12/15/18. Pt is on [facility]-MMTP program and will return there after discharge. Pt is noncompliant with HAART for over 3 months per patient account. Pt states she goes to [facility] on [address] for primary care management. pt has been instructed to follow up with his provider for management of her comorbid conditions. Pertinent Past History: HIV+(noncompliant with meds) GERD(not on med) Hx Recurrent UTI - Discharge Physical Exam Vital Signs: Vital Signs Temperature 97.8 F 12/14/18 07:16 Pulse Rate 75 12/14/18 07:16 Respiratory Rate 18 12/14/18 07:16 Blood Pressure 92/60 12/14/18 07:16 O2 Sat by Pulse Oximetry (%) Alert o x 3 nad oob ambulating with steady gait cardiac:s1 s2,rrr lungs:cta,oliver. abdomen:soft,+bs,nt extremities/skin:no edema,full ROM,skin intact. Pertinent Admission Physical Exam Findings: Laboratory Tests 12/01/18 12/01/18 12/01/18 08:54 08:54 08:54 WBC 7.1 RBC 4.02 Hgb 11.7 Hct 34.9 MCV 86.7 MCH 29.1 MCHC 33.6 RDW 14.3 D Plt Count 175 MPV 10.2 Sodium 145 Potassium 4.0 Chloride 108 H Carbon Dioxide 32 Anion Gap 5 L BUN 14.1 Creatinine 0.6 Est GFR (CKD-EPI)AfAm 131.22 Est GFR (CKD-EPI)NonAf 113.22 Random Glucose 59 L Calcium 8.5 Total Bilirubin 0.2 AST 17 ALT 12 L Alkaline Phosphatase 104 Total Protein 7.0 Albumin 2.8 L Urine Color Urine Appearance Urine pH Ur Specific [place] Urine Protein Urine Glucose (UA) Urine Ketones Urine Blood Urine Nitrite Urine Bilirubin Urine Urobilinogen Ur Leukocyte Esterase Urine WBC (Auto) Urine RBC (Auto) Urine Casts (Auto) U Epithel Cells (Auto) Urine Crystals (Auto) Urine Bacteria (Auto) RPR Titer Nonreactive Hep C Ab Diagnostic 12/01/18 12/02/18 12/03/18 08:54 10:25 11:30 WBC RBC Hgb Hct MCV MCH MCHC RDW Plt Count MPV Sodium Potassium Chloride Carbon Dioxide Anion Gap BUN Creatinine Est GFR (CKD-EPI)AfAm Est GFR (CKD-EPI)NonAf Random Glucose Calcium Total Bilirubin AST ALT Alkaline Phosphatase Total Protein Albumin Urine Color Yellow Yellow Urine Appearance Cloudy Cloudy Urine pH 6.0 6.0 Ur Specific [place] 1.016 1.020 Urine Protein Negative Negative Urine Glucose (UA) Negative Negative Urine Ketones Negative Negative Urine Blood Trace Negative Urine Nitrite Positive H Positive H Urine Bilirubin Negative Negative Urine Urobilinogen 0.2 0.2 Ur Leukocyte Esterase 3+ H 2+ H Urine WBC (Auto) 61 22 Urine RBC (Auto) 1 6 Urine Casts (Auto) 2 3 U Epithel Cells (Auto) 3.0 3.3 Urine Crystals (Auto) Calcium oxalate=1+ Calcium oxalate=2+ Urine Bacteria (Auto) 747.5 >9000 RPR Titer Hep C Ab Diagnostic 0.2 12/10/18 08:15 WBC RBC Hgb Hct MCV MCH MCHC RDW Plt Count MPV Sodium Potassium Chloride Carbon Dioxide Anion Gap BUN Creatinine Est GFR (CKD-EPI)AfAm Est GFR (CKD-EPI)NonAf Random Glucose Calcium Total Bilirubin AST ALT Alkaline Phosphatase Total Protein Albumin Urine Color Yellow Urine Appearance Clear Urine pH 8.0 D Ur Specific [place] 1.015 Urine Protein Negative Urine Glucose (UA) Negative Urine Ketones Negative Urine Blood Negative Urine Nitrite Negative Urine Bilirubin Negative Urine Urobilinogen 0.2 Ur Leukocyte Esterase 3+ H Urine WBC (Auto) 23 Urine RBC (Auto) 2 Urine Casts (Auto) 1 U Epithel Cells (Auto) 2.1 Urine Crystals (Auto) Urine Bacteria (Auto) 24.2 RPR Titer Hep C Ab Diagnostic Abnormal UA/UCS improved with Abx treatment Acute UTI - Treatment Discharge Condition: Discharge condition good Hospital Course: Rehabilitated safely and responded well CD aftercare referral accepted. - Medication Discharge Medications: Ambulatory Orders Quetiapine Fumarate [Seroquel -] 200 mg PO HS #30 tablet 12/14/18 - Medication-Assisted Treatment (MAT) Medication-Assisted Treatment (MAT): No - Discharge Instructions Diet, activity, other medical instructions: Diet:Regular Activity: oob ad sg Other medical instructions:Follow up with primary care provider at [facility] clinic within 1 week after discharge. [facility] Francisco Narvaez as recommended. - Diagnosis (1) Alcohol dependence Status: Chronic Qualifiers: Substance use status: uncomplicated Qualified Code(s): F10.20 - Alcohol dependence, uncomplicated (2) Cocaine dependence Status: Chronic Qualifiers: Substance use status: uncomplicated Qualified Code(s): F14.20 - Cocaine dependence, uncomplicated (3) HIV (human immunodeficiency virus infection) Status: Chronic Qualifiers: HIV symptom status: unspecified Qualified Code(s): B20 - Human immunodeficiency virus [HIV] disease (4) Nicotine dependence Status: Chronic Qualifiers: Nicotine product type: cigarettes Substance use status: uncomplicated Qualified Code(s): F17.210 - Nicotine dependence, cigarettes, uncomplicated (5) UTI (urinary tract infection) Status: Acute Qualifiers: Urinary tract infection type: site unspecified Hematuria presence: without hematuria Qualified Code(s): N39.0 - Urinary tract infection, site not specified (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
--- NOTE | 2018-12-14 15:16 | PN ---
[facility] Progress Note Note: Patient is scheduled for discharge tomorrow. Script for Seroquel 200 mg/hs will electronically transmitted to [facility] at [address] [place] [id number]
[2018-12-14] MEDS: THIAMINE HCL 100 MG TABLET (FP) PO SCH (21:17)
[2018-12-14] MEDS: QUEtiapine FUMARATE 200 MG TABLET PO SCH (21:18)
[2018-12-14] MEDS: LIDOCAINE PATCH REMOVAL MC SCH (21:18)
[2018-12-14] MEDS: METHYL SALICYLATE/MENTHOL OINT 30 GM TUBE TP SCH (21:19)
[2018-12-15] MEDS ORDERED: METHADONE HCL 10 MG TABLET ONE (04:13)
[2018-12-15] MEDS ORDERED: METHADONE HCL 40 MG DISPERSABLE TABLET ONE (04:13)
[2018-12-15] MEDS: NEOMYCIN/POLYMYXN/HC OTIC SUSPENSION 10 ML BOTTLE AD SCH (06:51)
[2018-12-15] MEDS: METHADONE 40 MG, METHADONE 30 MG PO SCH (06:51)
[2018-12-15] MEDS: hydrOXYzine PAMOATE 25 MG CAPSULE (FP) PO PRN (06:52)
[2018-12-15] MEDS: CYCLOBENZAPRINE HCL 5 MG TABLET PO PRN (06:52)
[2018-12-15] MEDS: NITROFURANTOIN MACROCRYSTAL 50 MG CAPSULE (FP) PO SCH (06:52)
[2018-12-15 07:31] VITALS: BP 97/63; PULSE 79; TEMP 97.7
[2018-12-15] MEDS: LIDOCAINE 5% TOPICAL PATCH TP SCH (10:07)
[2018-12-15] MEDS: NICOTINE 21 MG/24 HOURS TOPICAL PATCH TD SCH (10:07)
[2018-12-15] MEDS: PRENATAL VITAMINS W/ FOLIC ACID TABLET (FP) PO SCH (10:07)
[2018-12-15] MEDS: PANTOPRAZOLE 20 MG TABLET (FP) PO SCH (10:07)
[2018-12-15] MEDS: MINERAL OIL/PETROLAT/WATER TOPICAL CREAM 113 GM JAR TP SCH (10:08)
--- NOTE | 2018-12-15 22:23 | PN ---
S Progress Note Note: Pt was discharged as scheduled today in stable condition. Alert o x 3, oob ambulating with steady gait. well groomed and upbeat to start next level of care.(See rehab Discharge Summary for details) Vital Signs - 24 hr 12/15/18 12/15/18 00:30 07:30 Temperature 97.7 F Pulse Rate 79 Respiratory 16 18 Rate Blood Pressure 97/63 End of note.
== END 2018-12-15 10:22 | disposition home or self-care (01) | DRG 772 ==
LOC: YASAS 10:48 → Y3E 13:26
PROVIDERS: ADMIT Neuromusculoskeletal Medicine & OMM; ATTEND Neuromusculoskeletal Medicine & OMM
PROC: HZ42ZZZ Group Counseling for Substance Abuse Treatment, Cognitive-Behavioral (ICD-10-PCS; principal; 2018-11-30)
DX: F10.20 Alcohol dependence, uncomplicated (principal); F11.20 Opioid dependence, uncomplicated; F14.20 Cocaine dependence, uncomplicated; F17.210 Nicotine dependence, cigarettes, uncomplicated; F43.10 Post-traumatic stress disorder, unspecified; F19.24 Other psychoactive substance dependence with psychoactive substance-induced mood disorder; F19.282 Other psychoactive substance dependence with psychoactive substance-induced sleep disorder; F31.9 Bipolar disorder, unspecified; K21.9 Gastro-esophageal reflux disease without esophagitis; N39.0 Urinary tract infection, site not specified; Z21 Asymptomatic human immunodeficiency virus [HIV] infection status; G47.00 Insomnia, unspecified; R41.82 Altered mental status, unspecified; J06.9 Acute upper respiratory infection, unspecified; H60.90 Unspecified otitis externa, unspecified ear; H61.23 Impacted cerumen, bilateral; Z88.2 Allergy status to sulfonamides; Z88.1 Allergy status to other antibiotic agents
CPT/HCPCS: 36415; 80053; 81003; 85027; 86593; 86803; 87086; 87186

== ENCOUNTER 2019-03-04 10:29 | Inpatient (IN) | payer OTHER ==
[2019-03-04 10:50] VITALS: BMI 20.4
--- NOTE | 2019-03-04 12:09 | HP ---
COWS - Scale Resting Pulse: 0= AK 80 or Below Sweatin= Chills/Flushing Restless Observation: 1= Difficult to Sit Still Pupil Size: 1= Pupils >than Normal Bone or Joint Aches: 2= Severe Diffuse Aches Runny Nose/ Eye Tearin= Runny Nose/Eyes GI Upset > 30mins: 2= Nausea/Diarrhea Tremor Observation: 2= Slight Tremor Visible Yawning Observation: 2= >3x During Session Anxiety or Irritability: 2=Irritable/Anxious Goose Flesh Skin: 0=Smooth Skin COWS Score: 15 CIWA Score Nausea/Vomitin Muscle Tremors: 3 Anxiety: 3 Agitation: 3 Paroxysmal Sweats: 1-Minimal Palms Moist Orientation: 0-Oriented Tacttile Disturbances: 1-Very Mild Itch/Numbness Auditory Disturbances: 0-None Visual Disturbances: 0-None Headache: 2-Mild CIWA-Ar Total Score: 15 - Admission Criteria OASAS Guidelines: Admission for Medically Managed Detox: Requires at least one of the followin. CIWA greater than 12 2. Seizures within the past 24 hours 3. Delirium tremens within the past 24 hours 4. Hallucinations within the past 24 hours 5. Acute intervention needed for co occurring medical disorder 6. Acute intervention needed for co occurring psychiatric disorder 7. Severe withdrawal that cannot be handled at a lower level of care (continued vomiting, continued diarrhea, abnormal vital signs) requiring intravenous medication and/or fluids 8. Admitting History and Physical - Admission Chief Complaint: i need help to stop using heroin and alcohol, History of Present Illness: this 44 years old female with heroin and alcohol dependence seeking help set, last treatment in rehab 11/30/18 to 12/15/17 History Source: Patient Limitations to Obtaining History: No Limitations - Past Medical History ...LMP: 08/23/17 Infectious Disease: Yes: HIV Psych: Yes: Depression - Smoking History Smoking history: Current every day smoker Have you smoked in the past 12 months: Yes Aproximately how many cigarettes per day: 10 - Alcohol/Substance Use Hx Alcohol Use: Yes History of Substance Use: reports: Cocaine, Heroin - Social History Usual Living Arrangement: Yes: Alone ADL: Support Services Occupation: unemployed Admission ROS [facility] - HPI Chief Complaint: i need help to stop using heroin,alcohol Allergies/Adverse Reactions: Allergies Allergy/AdvReac Type Severity Reaction Status Date / Time sulfamethoxazole AdvReac Severe Hives Verified 11/30/18 11:34 [From Bactrim] trimethoprim [From Bactrim] AdvReac Severe Hives Verified 11/30/18 11:34 History of Present Illness: this 44 years old female with heroin AND ALCOHOL DEPENDENCE SEEKING DETOX, WITHDRAWAL SYMPTOM denied seizure denied syncope last treatment rehab 11/30/18 to 12/15/18 keep relapsing hiv in 2011 non compliance last medication august 2018 bipolar disorder no medication weight loss irritation in perineal area for 3 days Exam Limitations: No Limitations - Ebola screening Have you traveled outside of the country in the last 21 days: No Have you had contact with anyone from an Ebola affected area: No Do you have a fever: No - Review of Systems Constitutional: Loss of Appetite, Malaise, Night Sweats, Changes in sleep, Weakness, Unintentional Wgt. Loss EENT: reports: Hearing Loss, Nose Congestion Respiratory: reports: No Symptoms reported Cardiac: reports: No Symptoms Reported GI: reports: Nausea, Poor Appetite, Abdominal cramping : reports: No Symptoms Reported Musculoskeletal: reports: Back Pain, Joint Pain, Muscle Pain Integumentary: reports: Dryness Neuro: reports: Tremors Endocrine: reports: No Symptoms Reported Hematology: reports: No Symptoms Reported, Other (hiv since 2013) Psychiatric: reports: No Sypmtoms Reported, Judgement Intact, Mood/Affect Appropiate, Orientated x3, Anxious, Depressed, other (bipolar disorder) Patient History - Patient Medical History Hx Anemia: No Hx Asthma: No Hx Chronic Obstructive Pulmonary Disease (COPD): No Hx Cancer: No Hx Cardiac Disorders: No Hx Congestive Heart Failure: No Hx Hypertension: No Hx Hypercholesterolemia: No Hx Pacemaker: No HX Cerebrovascular Accident: No Hx Seizures: No Hx Dementia: No Hx Diabetes: No Hx Gastrointestinal Disorders: No Hx Liver Disease: No Hx Genitourinary Disorders: No Hx Sexually Transmitted Disorders: Yes (HIV POSITIVE since 2013 non compliance no med since 09/10) Hx Renal Disease (ESRD): No Hx Thyroid Disease: No Hx Human Immunodeficiency Virus (HIV): Yes (DX 2011) Hx Hepatitis C: No Hx Depression: Yes Hx Suicide Attempt: No Hx Bipolar Disorder: Yes (no med) Hx Schizophrenia: No Other Medical History: no suicidal,no homicidal - Patient Surgical History Past Surgical History: Yes Hx Neurologic Surgery: No Hx Cataract Extraction: No Hx Cardiac Surgery: No Hx Lung Surgery: No Hx Breast Surgery: No Hx Breast Biopsy: No Hx Abdominal Surgery: No Hx Appendectomy: No Hx Cholecystectomy: No Hx Genitourinary Surgery: No Hx Section: Yes (1992, 1999, 2006) Hx Orthopedic Surgery: Yes (R FOOT BUNION SX) Hx Hysterectomy: No Anesthesia Reaction: No - PPD History Previous Implant?: Yes Documented Results: Negative w/o proof Implanted On Prior [facility] Admission?: Yes Date: 06/02/17 Results: 0mm PPD to be Administered?: Yes - Reproductive History Patient is a Female of Child Bearing Age (11 -55 yrs old): Yes Last Menstrual Period: 08/23/17 Patient : No - Smoking Cessation Smoking history: Current every day smoker Have you smoked in the past 12 months: Yes Aproximately how many cigarettes per day: 10 Cigars Per Day: 0 Hx Chewing Tobacco Use: No Initiated information on smoking cessation: Yes 'Breaking Loose' booklet given: 03/04/19 - Substance & Tx. History Hx Alcohol Use: Yes Hx Substance Use: Yes Substance Use Type: Alcohol, Cocaine, Heroin Hx Substance Use Treatment: Yes ([facility] rehab 11/30/18 to 12/15/18) - Substances abused Alcohol Substance route: Oral Frequency: Daily Amount used: $20 bottle of sharif Age of first use: 18 Date of last use: 03/02/19 Cocaine Substance route: Inhalation Frequency: 1-2 times per week Amount used: $20 Age of first use: 23 Date of last use: 02/28/19 Heroin Substance route: Inhalation Frequency: Daily Amount used: 10 bags Age of first use: 40 Date of last use: 03/04/19 Admission Physical Exam S - Vital Signs Vital Signs: Vital Signs - 24 hr 03/04/19 10:42 Temperature 97.9 F Pulse Rate 79 Respiratory 18 Rate Blood Pressure 93/57 L - Physical General Appearance: Yes: Moderate Distress, Tremorous, Irritable, Sweating, Anxious HEENTM: Yes: Normocephalic, TAD, Pharynx Normal Respiratory: Yes: Lungs Clear, Normal Breath Sounds, No Respiratory Distress Neck: Yes: Within Normal Limits, Supple, Trachea in good position Breast: Yes: Breast Exam Deferred Cardiology: Yes: Within Normal Limits, Regular Rhythm, Regular Rate, S1, S2 Abdominal: Yes: Normal Bowel Sounds, Non Tender, Flat, Soft Genitourinary: Yes: Within Normal Limits Back: Yes: Muscle Spasm Musculoskeletal: Yes: Back pain, Joint Stiffness, Muscle Pain Extremities: Yes: Tremors Neurological: Yes: telecommunications officer II-XII NML intact, Fully Oriented, Alert, Motor Strength 5/5 Integumentary: Yes: Dry Lymphatic: Yes: Within Normal Limits - Diagnostic (1) Opioid dependence with withdrawal Current Visit: No Status: Acute (2) Alcohol dependence with withdrawal, uncomplicated Current Visit: No Status: Acute (3) Bipolar disorder Current Visit: No Status: Chronic (4) HIV disease Current Visit: No Status: Chronic Comment: no treatment at this time (5) Weight loss Current Visit: Yes Status: Acute Cleared for Admission [facility] - Detox or Rehab [facility] Level of Care: Medically Managed Detox Regimen/Protocol: Methadone/Librium Breathalyzer - Breathalyzer Breathalyzer: 0 Urine Drug Screen - Test Device Lot number: [id number] Expiration date: 09/22/20 - Control Is test valid?: Yes - Results Drug screen NEGATIVE: No Urine drug screen results: ALEXIA-Cocaine, FEN-Fentanyl, MOP-Opiates, MTD-Methadone Inpatient Rehab Admission - Rehab Decision to Admit Inpatient rehab admission?: No
[2019-03-04] MEDS ORDERED: MAGNESIUM HYDROX 2400MG/30ML ORAL SUSPENSION 30 ML CUP PO PRN (12:21)
[2019-03-04] MEDS ORDERED: NICOTINE POLACRILEX 2 MG GUM BUC PRN (12:21)
[2019-03-04] MEDS ORDERED: IBUPROFEN 400 MG TABLET (FP) PO PRN (12:21)
[2019-03-04] MEDS ORDERED: BISMUTH SUBSALICYLATE 262 MG/15 ML BTL PO PRN (12:21)
[2019-03-04] MEDS ORDERED: MAGNESIUM CITRATE 300 ML BOTTLE PO PRN (12:21)
[2019-03-04] MEDS ORDERED: hydrOXYzine PAMOATE 25 MG CAPSULE (FP) PO PRN (12:21)
[2019-03-04] MEDS ORDERED: METHOCARBAMOL 500 MG TABLET PO PRN (12:21)
[2019-03-04] MEDS ORDERED: MELATONIN 5 MG TABLETS PO PRN (12:21)
[2019-03-04] MEDS ORDERED: ACETAMINOPHEN 325 MG TABLET (FP) PO PRN (12:21)
[2019-03-04] MEDS ORDERED: cloNIDine HCL 0.1 MG TABLET PO PRN (12:21)
[2019-03-04] MEDS ORDERED: METHADONE HCL 10 MG TABLET (FOR DETOX USE ONLY) PO ONE (12:21)
[2019-03-04] MEDS ORDERED: COLLOIDAL OATMEAL 1 BAR EACH TP PRN (12:27)
[2019-03-04] MEDS: NICOTINE 21 MG/24 HOURS TOPICAL PATCH TD SCH (13:36)
[2019-03-04] MEDS: HYDROCORTISONE 0.5% TOPICAL CREAM 30 GM TUBE TP SCH ×2 (13:36→22:05)
[2019-03-04] MEDS: chlordiazePOXIDE HCL 25 MG CAPSULE PO PRN (13:36)
[2019-03-04 15:52] LABS: HEMATOCRIT 32.6 % (32.4-45.2); HEMOGLOBIN 10.8 GM/dL (10.7-15.3); MCHC 33.2 g/dl (32.0-36.0); MEAN CELL VOLUME 84.5 fl (80-96); MEAN PLT VOLUME 9.6 fl (7.5-11.1); PLATELET COUNT 300 K/MM3 (134-434); RBC 3.86 M/mm3 (3.60-5.2); RDW 14.2 % (11.6-15.6); WHITE BLOOD COUNT 8.7 K/mm3 (4.0-10.0)
[2019-03-04 16:01] LABS: ALBUMIN 2.6 g/dl (3.4-5.0); BILIRUBIN,TOTAL 0.2 mg/dL (0.2-1); BLOOD UREA NITROGEN 9.1 mg/dL (7-18); CALCIUM 8.6 mg/dL (8.5-10.1); CREATININE 0.8 mg/dL (0.55-1.3); TOT PROT 8.5 g/dl (6.4-8.2)
[2019-03-04] MEDS: chlordiazePOXIDE HCL 25 MG CAPSULE PO SCH ×2 (17:31→22:04)
[2019-03-04] MEDS: ACETAMINOPHEN 325 MG TABLET (FP) PO PRN (17:33)
[2019-03-04] MEDS: THIAMINE HCL 100 MG TABLET (FP) PO SCH (22:04)
[2019-03-05] MEDS: ACETAMINOPHEN 325 MG TABLET (FP) PO PRN ×2 (03:37→17:15)
[2019-03-05] MEDS: chlordiazePOXIDE HCL 25 MG CAPSULE PO PRN ×2 (03:37→15:40)
[2019-03-05] MEDS: chlordiazePOXIDE HCL 25 MG CAPSULE PO SCH ×4 (05:27→22:47)
[2019-03-05] MEDS: MAG HYDROX/AL HYDROX/SIMETH 30 ML UNIT-DOSE CUP PO PRN ×3 (05:28→22:47)
[2019-03-05] MEDS ORDERED: METHADONE HCL 5 MG TABLET (FOR DETOX USE ONLY) ONE (09:31)
[2019-03-05] MEDS ORDERED: METHADONE HCL 10 MG TABLET (FOR DETOX USE ONLY) ONE (09:31)
[2019-03-05] MEDS ORDERED: METHADONE (DETOX) 20 MG, METHADONE (DETOX) 5 MG PO ONE (10:00)
[2019-03-05] MEDS: HYDROCORTISONE 0.5% TOPICAL CREAM 30 GM TUBE TP SCH ×2 (10:26→22:46)
[2019-03-05] MEDS: NICOTINE 21 MG/24 HOURS TOPICAL PATCH TD SCH (10:30)
[2019-03-05] MEDS: PRENATAL VITAMINS W/ FOLIC ACID TABLET (FP) PO SCH (10:30)
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
--- NOTE | 2019-03-05 11:47 | PN ---
[facility] CIWA - CIWA Score Nausea/Vomitin-No Nausea/No Vomiting Muscle Tremors: 2 Anxiety: 3 Agitation: 2 Paroxysmal Sweats: 3 Orientation: 0-Oriented Tacttile Disturbances: 0-None Auditory Disturbances: 0-None Visual Disturbances: 0-None Headache: 2-Mild CIWA-Ar Total Score: 12 S Progress Note (SOAP) Subjective: c/o anxiety, irritability, headache, sweats, and shakes. Objective: 03/05/19 11:48 Vital Signs 03/05/19 03/05/19 06:50 09:27 Temperature 97.3 F L 97.8 F Pulse Rate 65 61 Respiratory 18 18 Rate Blood Pressure 102/66 101/61 Laboratory Last Values WBC 8.7 K/mm3 (4.0-10.0) 03/04/19 12:40 RBC 3.86 M/mm3 (3.60-5.2) 03/04/19 12:40 Hgb 10.8 GM/dL (10.7-15.3) 03/04/19 12:40 Hct 32.6 % (32.4-45.2) 03/04/19 12:40 MCV 84.5 fl (80-96) 03/04/19 12:40 MCH 28.0 pg (25.7-33.7) 03/04/19 12:40 MCHC 33.2 g/dl (32.0-36.0) 03/04/19 12:40 RDW 14.2 % (11.6-15.6) 03/04/19 12:40 Plt Count 300 K/MM3 (134-434) D 03/04/19 12:40 MPV 9.6 fl (7.5-11.1) 03/04/19 12:40 Sodium 139 mmol/L (136-145) 03/04/19 12:40 Potassium 4.0 mmol/L (3.5-5.1) 03/04/19 12:40 Chloride 105 mmol/L (98-107) 03/04/19 12:40 Carbon Dioxide 28 mmol/L (21-32) 03/04/19 12:40 Anion Gap 5 MMOL/L (8-16) L 03/04/19 12:40 BUN 9.1 mg/dL (7-18) 03/04/19 12:40 Creatinine 0.8 mg/dL (0.55-1.3) 03/04/19 12:40 Est GFR (CKD-EPI)AfAm 105.39 03/04/19 12:40 Est GFR (CKD-EPI)NonAf 90.93 03/04/19 12:40 Random Glucose 118 mg/dL (74-106) H 03/04/19 12:40 Calcium 8.6 mg/dL (8.5-10.1) 03/04/19 12:40 Total Bilirubin 0.2 mg/dL (0.2-1) 03/04/19 12:40 AST 23 U/L (15-37) 03/04/19 12:40 ALT 15 U/L (13-61) 03/04/19 12:40 Alkaline Phosphatase 107 U/L (45-117) 03/04/19 12:40 Total Protein 8.5 g/dl (6.4-8.2) H 03/04/19 12:40 Albumin 2.6 g/dl (3.4-5.0) L 03/04/19 12:40 RPR Titer Nonreactive (NONREACTIVE) 03/04/19 12:40 Labs noted. Assessment: 03/05/19 11:48 AOX3, in no acute respiratory distress. Full ROM, ambulating in the unit. Withdrawal symptoms. Plan: continue detox.
[2019-03-05] MEDS: guaiFENesin 200 MG/10 ML 10 ML UNIT-DOSE CUPS PO PRN ×2 (17:15→22:47)
[2019-03-05] MEDS: MENTHOL/PHENOL 1 EACH UD MM PRN ×2 (17:16→22:48)
[2019-03-05 18:28] LABS: EPI CELLS 3.3 /HPF (0-5/HPF); HYALINE CASTS 1 /lpf (0-8); PH,URINE >= 9.0 (5.0-8.0); URINE APPEARANCE CLEAR; URINE BACTERIA 82.9 /hpf (NEGATIVE); URINE BILIRUBIN NEGATIVE (NEGATIVE); URINE COLOR YELLOW; URINE GLUCOSE (UA) NEGATIVE (NEGATIVE); URINE KETONE NEGATIVE (NEGATIVE); URINE LEUK ESTERASE NEGATIVE (NEGATIVE); URINE NITRITE NEGATIVE (NEGATIVE); URINE PROTEIN NEGATIVE (NEGATIVE); URINE UROBILINOGEN 0.2 mg/dL (0.2-1.0); URINE WBC 7 /hpf (0-5)
[2019-03-05] MEDS: QUEtiapine FUMARATE 100 MG TABLET (FP) PO SCH (22:47)
[2019-03-05] MEDS: THIAMINE HCL 100 MG TABLET (FP) PO SCH (22:47)
[2019-03-05] MEDS: MELATONIN 5 MG TABLETS PO PRN (22:47)
[2019-03-06] MEDS: chlordiazePOXIDE HCL 25 MG CAPSULE PO PRN (02:59)
[2019-03-06] MEDS: chlordiazePOXIDE HCL 25 MG CAPSULE PO SCH ×2 (05:50→11:30)
[2019-03-06] MEDS ORDERED: METHADONE HCL 10 MG TABLET (FOR DETOX USE ONLY) PO ONE (10:00)
[2019-03-06] MEDS: HYDROCORTISONE 0.5% TOPICAL CREAM 30 GM TUBE TP SCH ×2 (11:16→23:18)
[2019-03-06] MEDS: PRENATAL VITAMINS W/ FOLIC ACID TABLET (FP) PO SCH (11:16)
[2019-03-06] MEDS: NICOTINE 21 MG/24 HOURS TOPICAL PATCH TD SCH (11:17)
[2019-03-06] MEDS: guaiFENesin 200 MG/10 ML 10 ML UNIT-DOSE CUPS PO PRN ×3 (11:17→22:34)
[2019-03-06] MEDS: MENTHOL/PHENOL 1 EACH UD MM PRN (11:18)
[2019-03-06] MEDS ORDERED: AZITHROMYCIN 250 MG TABLET PO ONE (12:14)
--- NOTE | 2019-03-06 12:17 | PN ---
[facility] CI[facility] - CIWA Score Nausea/Vomitin-Mild Nausea/No Vomiting Muscle Tremors: 2 Anxiety: 3 Agitation: 3 Paroxysmal Sweats: 2 Orientation: 0-Oriented Tacttile Disturbances: 0-None Auditory Disturbances: 0-None Visual Disturbances: 0-None Headache: 0-None Present CIWA-Ar Total Score: 11 S COWS - Scale Resting Pulse: 1= [place] 81-100 Sweatin= Chills/Flushing Restless Observation: 0= Sits Still Pupil Size: 1= Pupils >than Normal Bone or Joint Aches: 1= Mild Discomfort Runny Nose/ Eye Tearin= Nasal Congestion GI Upset > 30mins: 1= Stomach Cramp Tremor Observation of Outstretched Hands: 2= Slight Tremor Visible Yawning Observation: 1= 1-2x During Session Anxiety or Irritability: 2=Irritable/Anxious Goose Flesh Skin: 0=Smooth Skin COWS Score: 11 [facility] Progress Note (SOAP) Subjective: 44 years old female admitted on 03/04/19 for alcohol and opiate withdrawal sx management treating with librium and methadone detox regimens c/o cold symptoms running nose sore throat oral pharyngeal redness no swell no discharge no lesion no lymphadenopathy zithromax 500mg po x 1 250mg po tomorrow Objective: 03/06/19 12:19 Vital Signs Temperature 98.4 F 03/06/19 09:17 Pulse Rate 87 03/06/19 09:17 Respiratory Rate 16 03/06/19 09:17 Blood Pressure 90/62 03/06/19 09:17 O2 Sat by Pulse Oximetry (%) Laboratory Last Values WBC 8.7 K/mm3 (4.0-10.0) 03/04/19 12:40 RBC 3.86 M/mm3 (3.60-5.2) 03/04/19 12:40 Hgb 10.8 GM/dL (10.7-15.3) 03/04/19 12:40 Hct 32.6 % (32.4-45.2) 03/04/19 12:40 MCV 84.5 fl (80-96) 03/04/19 12:40 MCH 28.0 pg (25.7-33.7) 03/04/19 12:40 MCHC 33.2 g/dl (32.0-36.0) 03/04/19 12:40 RDW 14.2 % (11.6-15.6) 03/04/19 12:40 Plt Count 300 K/MM3 (134-434) D 03/04/19 12:40 MPV 9.6 fl (7.5-11.1) 03/04/19 12:40 Sodium 139 mmol/L (136-145) 03/04/19 12:40 Potassium 4.0 mmol/L (3.5-5.1) 03/04/19 12:40 Chloride 105 mmol/L (98-107) 03/04/19 12:40 Carbon Dioxide 28 mmol/L (21-32) 03/04/19 12:40 Anion Gap 5 MMOL/L (8-16) L 03/04/19 12:40 BUN 9.1 mg/dL (7-18) 03/04/19 12:40 Creatinine 0.8 mg/dL (0.55-1.3) 03/04/19 12:40 Est GFR (CKD-EPI)AfAm 105.39 03/04/19 12:40 Est GFR (CKD-EPI)NonAf 90.93 03/04/19 12:40 Random Glucose 118 mg/dL (74-106) H 03/04/19 12:40 Calcium 8.6 mg/dL (8.5-10.1) 03/04/19 12:40 Total Bilirubin 0.2 mg/dL (0.2-1) 03/04/19 12:40 AST 23 U/L (15-37) 03/04/19 12:40 ALT 15 U/L (13-61) 03/04/19 12:40 Alkaline Phosphatase 107 U/L (45-117) 03/04/19 12:40 Total Protein 8.5 g/dl (6.4-8.2) H 03/04/19 12:40 Albumin 2.6 g/dl (3.4-5.0) L 03/04/19 12:40 Urine Color Yellow 03/05/19 10:11 Urine Appearance Clear 03/05/19 10:11 Urine pH >= 9.0 (5.0-8.0) H 03/05/19 10:11 Ur Specific [place] 1.018 (1.010-1.035) 03/05/19 10:11 Urine Protein Negative (NEGATIVE) 03/05/19 10:11 Urine Glucose (UA) Negative (NEGATIVE) 03/05/19 10:11 Urine Ketones Negative (NEGATIVE) 03/05/19 10:11 Urine Blood Trace (NEGATIVE) 03/05/19 10:11 Urine Nitrite Negative (NEGATIVE) 03/05/19 10:11 Urine Bilirubin Negative (NEGATIVE) 03/05/19 10:11 Urine Urobilinogen 0.2 mg/dL (0.2-1.0) 03/05/19 10:11 Ur Leukocyte Esterase Negative (NEGATIVE) 03/05/19 10:11 Urine WBC (Auto) 7 /hpf (0-5) 03/05/19 10:11 Urine RBC (Auto) 51.0 /hpf (0-4) 03/05/19 10:11 Urine Casts (Auto) 1 /lpf (0-8) 03/05/19 10:11 U Epithel Cells (Auto) 3.3 /HPF (0-5/HPF) 03/05/19 10:11 Urine Bacteria (Auto) 82.9 /hpf (NEGATIVE) 03/05/19 10:11 POC Urine HCG, Qual Negative 03/04/19 10:11 RPR Titer Nonreactive (NONREACTIVE) 03/04/19 12:40 lab noted Assessment: 03/06/19 12:19 alcohol and opiate withdrawal 03/06/19 12:20 laryngitis Plan: librium and methadone regimens zithromax
[2019-03-06] MEDS ORDERED: chlordiazePOXIDE 5 MG CAPSULE PO ONE (13:48)
[2019-03-06] MEDS: chlordiazePOXIDE 5 MG CAPSULE PO SCH ×2 (17:26→22:31)
[2019-03-06] MEDS: MAG HYDROX/AL HYDROX/SIMETH 30 ML UNIT-DOSE CUP PO PRN ×2 (17:27→22:34)
[2019-03-06] MEDS: QUEtiapine FUMARATE 100 MG TABLET (FP) PO SCH (22:31)
[2019-03-06] MEDS: MELATONIN 5 MG TABLETS PO PRN (22:32)
[2019-03-06] MEDS: THIAMINE HCL 100 MG TABLET (FP) PO SCH (22:35)
[2019-03-07] MEDS ORDERED: chlordiazePOXIDE HCL 10 MG CAPSULE PO PRN
[2019-03-07] MEDS: chlordiazePOXIDE HCL 10 MG CAPSULE PO SCH ×4 (06:11→23:02)
[2019-03-07] MEDS: guaiFENesin 200 MG/10 ML 10 ML UNIT-DOSE CUPS PO PRN ×4 (06:12→23:04)
[2019-03-07] MEDS: MAG HYDROX/AL HYDROX/SIMETH 30 ML UNIT-DOSE CUP PO PRN ×3 (06:12→23:03)
[2019-03-07] MEDS ORDERED: METHADONE HCL 10 MG TABLET (FOR DETOX USE ONLY) ONE (08:32)
[2019-03-07] MEDS ORDERED: METHADONE HCL 5 MG TABLET (FOR DETOX USE ONLY) ONE (08:32)
[2019-03-07] MEDS ORDERED: METHADONE (DETOX) 10 MG, METHADONE (DETOX) 5 MG PO ONE (10:00)
[2019-03-07] MEDS: PRENATAL VITAMINS W/ FOLIC ACID TABLET (FP) PO SCH (10:07)
[2019-03-07] MEDS: HYDROCORTISONE 0.5% TOPICAL CREAM 30 GM TUBE TP SCH ×2 (10:07→23:02)
[2019-03-07] MEDS: AZITHROMYCIN 250 MG TABLET PO SCH (10:07)
[2019-03-07] MEDS: NICOTINE 21 MG/24 HOURS TOPICAL PATCH TD SCH (10:08)
--- NOTE | 2019-03-07 12:18 | PN ---
[facility] CIWA - CIWA Score Nausea/Vomitin-Mild Nausea/No Vomiting Muscle Tremors: 2 Anxiety: 2 Agitation: 2 Paroxysmal Sweats: 2 Orientation: 0-Oriented Tacttile Disturbances: 0-None Auditory Disturbances: 0-None Visual Disturbances: 0-None Headache: 0-None Present CIWA-Ar Total Score: 9 [facility] COWS - Scale Resting Pulse: 1= [place] 81-100 Sweatin= Chills/Flushing Restless Observation: 0= Sits Still Pupil Size: 1= Pupils >than Normal Bone or Joint Aches: 1= Mild Discomfort Runny Nose/ Eye Tearin= Nasal Congestion GI Upset > 30mins: 2= Nausea/Diarrhea Tremor Observation of Outstretched Hands: 1= Tremor [place], Not Seen Yawning Observation: 0= None Anxiety or Irritability: 1=Feels Anxious/Irritable Goose Flesh Skin: 0=Smooth Skin COWS Score: 9 S Progress Note (SOAP) Subjective: 44 years old female admitted on 03/04/19 for alcohol and opiate withdrawal sx management treating with librium and methadone detox regimen feeling tired resting on bed encourage to attend behavior and psychosocial therapies while in detox Objective: 03/07/19 12:16 Vital Signs Temperature 99.2 F 03/07/19 09:24 Pulse Rate 94 H 03/07/19 09:24 Respiratory Rate 16 03/07/19 09:24 Blood Pressure 92/66 03/07/19 09:24 O2 Sat by Pulse Oximetry (%) Laboratory Last Values WBC 8.7 K/mm3 (4.0-10.0) 03/04/19 12:40 RBC 3.86 M/mm3 (3.60-5.2) 03/04/19 12:40 Hgb 10.8 GM/dL (10.7-15.3) 03/04/19 12:40 Hct 32.6 % (32.4-45.2) 03/04/19 12:40 MCV 84.5 fl (80-96) 03/04/19 12:40 MCH 28.0 pg (25.7-33.7) 03/04/19 12:40 MCHC 33.2 g/dl (32.0-36.0) 03/04/19 12:40 RDW 14.2 % (11.6-15.6) 03/04/19 12:40 Plt Count 300 K/MM3 (134-434) D 03/04/19 12:40 MPV 9.6 fl (7.5-11.1) 03/04/19 12:40 Sodium 139 mmol/L (136-145) 03/04/19 12:40 Potassium 4.0 mmol/L (3.5-5.1) 03/04/19 12:40 Chloride 105 mmol/L (98-107) 03/04/19 12:40 Carbon Dioxide 28 mmol/L (21-32) 03/04/19 12:40 Anion Gap 5 MMOL/L (8-16) L 03/04/19 12:40 BUN 9.1 mg/dL (7-18) 03/04/19 12:40 Creatinine 0.8 mg/dL (0.55-1.3) 03/04/19 12:40 Est GFR (CKD-EPI)AfAm 105.39 03/04/19 12:40 Est GFR (CKD-EPI)NonAf 90.93 03/04/19 12:40 Random Glucose 118 mg/dL (74-106) H 03/04/19 12:40 Calcium 8.6 mg/dL (8.5-10.1) 03/04/19 12:40 Total Bilirubin 0.2 mg/dL (0.2-1) 03/04/19 12:40 AST 23 U/L (15-37) 03/04/19 12:40 ALT 15 U/L (13-61) 03/04/19 12:40 Alkaline Phosphatase 107 U/L (45-117) 03/04/19 12:40 Total Protein 8.5 g/dl (6.4-8.2) H 03/04/19 12:40 Albumin 2.6 g/dl (3.4-5.0) L 03/04/19 12:40 Urine Color Yellow 03/05/19 10:11 Urine Appearance Clear 03/05/19 10:11 Urine pH >= 9.0 (5.0-8.0) H 03/05/19 10:11 Ur Specific [place] 1.018 (1.010-1.035) 03/05/19 10:11 Urine Protein Negative (NEGATIVE) 03/05/19 10:11 Urine Glucose (UA) Negative (NEGATIVE) 03/05/19 10:11 Urine Ketones Negative (NEGATIVE) 03/05/19 10:11 Urine Blood Trace (NEGATIVE) 03/05/19 10:11 Urine Nitrite Negative (NEGATIVE) 03/05/19 10:11 Urine Bilirubin Negative (NEGATIVE) 03/05/19 10:11 Urine Urobilinogen 0.2 mg/dL (0.2-1.0) 03/05/19 10:11 Ur Leukocyte Esterase Negative (NEGATIVE) 03/05/19 10:11 Urine WBC (Auto) 7 /hpf (0-5) 03/05/19 10:11 Urine RBC (Auto) 51.0 /hpf (0-4) 03/05/19 10:11 Urine Casts (Auto) 1 /lpf (0-8) 03/05/19 10:11 U Epithel Cells (Auto) 3.3 /HPF (0-5/HPF) 03/05/19 10:11 Urine Bacteria (Auto) 82.9 /hpf (NEGATIVE) 03/05/19 10:11 POC Urine HCG, Qual Negative 03/04/19 10:11 RPR Titer Nonreactive (NONREACTIVE) 03/04/19 12:40 lab noted Assessment: 03/07/19 12:17 alcohol and opiate withdrawal Plan: librium and methadone regimens
[2019-03-07] MEDS: QUEtiapine FUMARATE 100 MG TABLET (FP) PO SCH (23:02)
[2019-03-07] MEDS: THIAMINE HCL 100 MG TABLET (FP) PO SCH (23:02)
[2019-03-08] MEDS ORDERED: chlordiazePOXIDE HCL 10 MG CAPSULE PO SCH (05:00)
[2019-03-08] MEDS: chlordiazePOXIDE 5 MG CAPSULE PO SCH ×2 (05:24→17:21)
[2019-03-08] MEDS: guaiFENesin 200 MG/10 ML 10 ML UNIT-DOSE CUPS PO PRN ×2 (05:25→22:15)
[2019-03-08] MEDS: PRENATAL VITAMINS W/ FOLIC ACID TABLET (FP) PO SCH (09:53)
[2019-03-08] MEDS: AZITHROMYCIN 250 MG TABLET PO SCH (09:54)
[2019-03-08] MEDS: NICOTINE 21 MG/24 HOURS TOPICAL PATCH TD SCH (09:55)
[2019-03-08] MEDS: HYDROCORTISONE 0.5% TOPICAL CREAM 30 GM TUBE TP SCH ×2 (09:56→22:13)
[2019-03-08] MEDS ORDERED: METHADONE HCL 10 MG TABLET (FOR DETOX USE ONLY) PO ONE (10:00)
[2019-03-08] MEDS: MAG HYDROX/AL HYDROX/SIMETH 30 ML UNIT-DOSE CUP PO PRN (11:45)
--- NOTE | 2019-03-08 12:05 | PN ---
[facility] CIWA - CIWA Score Nausea/Vomitin-No Nausea/No Vomiting Muscle Tremors: 3 Anxiety: 1-Mildly Anxious Agitation: 1-Slight > Activity Paroxysmal Sweats: No Perspiration Orientation: 0-Oriented Tacttile Disturbances: 0-None Auditory Disturbances: 0-None Visual Disturbances: 0-None Headache: 0-None Present CIWA-Ar Total Score: 5 S COWS - Scale Resting Pulse: 1= [place] 81-100 Sweatin= No chills or Flushing Restless Observation: 0= Sits Still Pupil Size: 0= Normal to Room Light Bone or Joint Aches: 1= Mild Discomfort Runny Nose/ Eye Tearin= None GI Upset > 30mins: 0= None Tremor Observation of Outstretched Hands: 2= Slight Tremor Visible Yawning Observation: 0= None Anxiety or Irritability: 1=Feels Anxious/Irritable Goose Flesh Skin: 0=Smooth Skin COWS Score: 5 S Progress Note (SOAP) Subjective: 44 years old female admitted on 03/04/19 for alcohol and opiaet withdrawal sx management treating with librium and methadone detox regimen feeling better today slept through the night less tremor c/o acid reflux discontinue motrin begin pepcide 20 mg po bid Objective: 03/08/19 14:17 Vital Signs Temperature 97.4 F L 03/08/19 13:14 Pulse Rate 93 H 03/08/19 13:14 Respiratory Rate 18 03/08/19 13:14 Blood Pressure 97/70 03/08/19 13:14 O2 Sat by Pulse Oximetry (%) Laboratory Last Values WBC 8.7 K/mm3 (4.0-10.0) 03/04/19 12:40 RBC 3.86 M/mm3 (3.60-5.2) 03/04/19 12:40 Hgb 10.8 GM/dL (10.7-15.3) 03/04/19 12:40 Hct 32.6 % (32.4-45.2) 03/04/19 12:40 MCV 84.5 fl (80-96) 03/04/19 12:40 MCH 28.0 pg (25.7-33.7) 03/04/19 12:40 MCHC 33.2 g/dl (32.0-36.0) 03/04/19 12:40 RDW 14.2 % (11.6-15.6) 03/04/19 12:40 Plt Count 300 K/MM3 (134-434) D 03/04/19 12:40 MPV 9.6 fl (7.5-11.1) 03/04/19 12:40 Sodium 139 mmol/L (136-145) 03/04/19 12:40 Potassium 4.0 mmol/L (3.5-5.1) 03/04/19 12:40 Chloride 105 mmol/L (98-107) 03/04/19 12:40 Carbon Dioxide 28 mmol/L (21-32) 03/04/19 12:40 Anion Gap 5 MMOL/L (8-16) L 03/04/19 12:40 BUN 9.1 mg/dL (7-18) 03/04/19 12:40 Creatinine 0.8 mg/dL (0.55-1.3) 03/04/19 12:40 Est GFR (CKD-EPI)AfAm 105.39 03/04/19 12:40 Est GFR (CKD-EPI)NonAf 90.93 03/04/19 12:40 Random Glucose 118 mg/dL (74-106) H 03/04/19 12:40 Calcium 8.6 mg/dL (8.5-10.1) 03/04/19 12:40 Total Bilirubin 0.2 mg/dL (0.2-1) 03/04/19 12:40 AST 23 U/L (15-37) 03/04/19 12:40 ALT 15 U/L (13-61) 03/04/19 12:40 Alkaline Phosphatase 107 U/L (45-117) 03/04/19 12:40 Total Protein 8.5 g/dl (6.4-8.2) H 03/04/19 12:40 Albumin 2.6 g/dl (3.4-5.0) L 03/04/19 12:40 Urine Color Yellow 03/05/19 10:11 Urine Appearance Clear 03/05/19 10:11 Urine pH >= 9.0 (5.0-8.0) H 03/05/19 10:11 Ur Specific [place] 1.018 (1.010-1.035) 03/05/19 10:11 Urine Protein Negative (NEGATIVE) 03/05/19 10:11 Urine Glucose (UA) Negative (NEGATIVE) 03/05/19 10:11 Urine Ketones Negative (NEGATIVE) 03/05/19 10:11 Urine Blood Trace (NEGATIVE) 03/05/19 10:11 Urine Nitrite Negative (NEGATIVE) 03/05/19 10:11 Urine Bilirubin Negative (NEGATIVE) 03/05/19 10:11 Urine Urobilinogen 0.2 mg/dL (0.2-1.0) 03/05/19 10:11 Ur Leukocyte Esterase Negative (NEGATIVE) 03/05/19 10:11 Urine WBC (Auto) 7 /hpf (0-5) 03/05/19 10:11 Urine RBC (Auto) 51.0 /hpf (0-4) 03/05/19 10:11 Urine Casts (Auto) 1 /lpf (0-8) 03/05/19 10:11 U Epithel Cells (Auto) 3.3 /HPF (0-5/HPF) 03/05/19 10:11 Urine Bacteria (Auto) 82.9 /hpf (NEGATIVE) 03/05/19 10:11 POC Urine HCG, Qual Negative 03/04/19 10:11 RPR Titer Nonreactive (NONREACTIVE) 03/04/19 12:40 lab noted Assessment: 03/08/19 14:18 alcohol and opiate withdrawal Plan: librium and methadone regimens
[2019-03-08] MEDS: FAMOTIDINE 20 MG TABLET PO SCH ×2 (12:17→22:13)
[2019-03-08] MEDS: MENTHOL/PHENOL 1 EACH UD MM PRN ×2 (16:20→22:16)
[2019-03-08] MEDS: QUEtiapine FUMARATE 100 MG TABLET (FP) PO SCH (22:13)
[2019-03-08] MEDS: THIAMINE HCL 100 MG TABLET (FP) PO SCH (22:13)
[2019-03-08] MEDS: MELATONIN 5 MG TABLETS PO PRN (22:14)
[2019-03-09] MEDS: MENTHOL/PHENOL 1 EACH UD MM PRN (04:22)
[2019-03-09] MEDS ORDERED: chlordiazePOXIDE 5 MG CAPSULE PO ONE (05:00)
[2019-03-09] MEDS ORDERED: chlordiazePOXIDE HCL 10 MG CAPSULE PO ONE (05:00)
[2019-03-09] MEDS ORDERED: METHADONE HCL 5 MG TABLET (FOR DETOX USE ONLY) PO ONE (06:00)
--- NOTE | 2019-03-09 08:51 | DS ---
[facility] Detox Discharge Summary Admission Date: 03/04/19 Discharge Date: 03/09/19 - History Present History: Alcohol Dependence, Opioid Dependence - Physical Exam Results Vital Signs: Vital Signs Temperature 96.8 F L 03/09/19 07:38 Pulse Rate 73 03/09/19 07:38 Respiratory Rate 18 03/09/19 07:38 Blood Pressure 98/58 L 03/09/19 07:38 O2 Sat by Pulse Oximetry (%) - Treatment Hospital Course: Detox Protocol Followed, Detoxed Safely, Responded well, Discharged Condition Good - Medication Discharge Medications: Ambulatory Orders Quetiapine Fumarate [Seroquel -] 200 mg PO HS #30 tablet 12/14/18 Naloxone HCl [Narcan] 4 mg NS ASDIR PRN #1 spray 03/08/19 - Diagnosis (1) Alcohol dependence with withdrawal, uncomplicated Current Visit: Yes Status: Chronic (2) Opioid dependence with withdrawal Current Visit: Yes Status: Chronic (3) Bipolar disorder Current Visit: Yes Status: Chronic (4) GERD (gastroesophageal reflux disease) Current Visit: No Status: Chronic Qualifiers: Esophagitis presence: without esophagitis Qualified Code(s): K21.9 - Gastro -esophageal reflux disease without esophagitis (5) HIV (human immunodeficiency virus infection) Current Visit: No Status: Chronic Qualifiers: HIV symptom status: unspecified Qualified Code(s): B20 - Human immunodeficiency virus [HIV] disease (6) Nicotine dependence Current Visit: Yes Status: Chronic Qualifiers: Nicotine product type: cigarettes Substance use status: uncomplicated Qualified Code(s): F17.210 - Nicotine dependence, cigarettes, uncomplicated - AMA Did Patient Leave Against Medical Advice: No
[2019-03-09] MEDS: FAMOTIDINE 20 MG TABLET PO SCH (09:23)
[2019-03-09] MEDS: PRENATAL VITAMINS W/ FOLIC ACID TABLET (FP) PO SCH (09:23)
[2019-03-09] MEDS: AZITHROMYCIN 250 MG TABLET PO SCH (09:24)
[2019-03-09] MEDS: NICOTINE 21 MG/24 HOURS TOPICAL PATCH TD SCH (09:24)
[2019-03-09] MEDS: HYDROCORTISONE 0.5% TOPICAL CREAM 30 GM TUBE TP SCH (09:24)
[2019-03-09 09:25] VITALS: BP 104/69; PULSE 93; TEMP 97.6
== END 2019-03-09 09:27 | disposition home or self-care (01) | DRG 773 ==
LOC: YASAS 10:29 → Y3N 12:32
PROVIDERS: ADMIT Allergy & Immunology; ATTEND Allergy & Immunology
PROC: HZ2ZZZZ Detoxification Services for Substance Abuse Treatment (ICD-10-PCS; principal; 2019-03-04)
DX: F11.23 Opioid dependence with withdrawal (principal); F10.230 Alcohol dependence with withdrawal, uncomplicated; F17.210 Nicotine dependence, cigarettes, uncomplicated; F31.9 Bipolar disorder, unspecified; F19.24 Other psychoactive substance dependence with psychoactive substance-induced mood disorder; F19.282 Other psychoactive substance dependence with psychoactive substance-induced sleep disorder; F43.10 Post-traumatic stress disorder, unspecified; Z21 Asymptomatic human immunodeficiency virus [HIV] infection status; K21.9 Gastro-esophageal reflux disease without esophagitis; J04.0 Acute laryngitis; R63.4 Abnormal weight loss; Z91.14 Patient's other noncompliance with medication regimen; Z91.410 Personal history of adult physical and sexual abuse; Z88.1 Allergy status to other antibiotic agents; Z88.2 Allergy status to sulfonamides
CPT/HCPCS: 36415; 80053; 81003; 81025; 85027; 86593

== ENCOUNTER 2020-03-23 16:21 | Inpatient (IN) | payer OTHER ==
[2020-03-23 18:27] VITALS: BMI 24.2
[2020-03-23] MEDS ORDERED: ONDANSETRON *ODT* 4 MG TABLET SL PRN (21:26)
[2020-03-23] MEDS ORDERED: METHOCARBAMOL 500 MG TABLET PO PRN (21:26)
[2020-03-23] MEDS ORDERED: MAG HYDROX/AL HYDROX/SIMETH 30 ML UNIT-DOSE CUP PO PRN (21:26)
[2020-03-23] MEDS ORDERED: MAGNESIUM CITRATE 300 ML BOTTLE PO PRN (21:26)
[2020-03-23] MEDS ORDERED: MAGNESIUM HYDROX 2400MG/30ML ORAL SUSPENSION 30 ML CUP PO PRN (21:26)
[2020-03-23] MEDS ORDERED: ACETAMINOPHEN 325 MG TABLET (FP) PO PRN ×2 (21:26)
[2020-03-23] MEDS ORDERED: MENTHOL/PHENOL 1 EACH UD MM PRN (21:26)
[2020-03-23] MEDS ORDERED: IBUPROFEN 400 MG TABLET (FP) PO PRN (21:26)
[2020-03-23] MEDS ORDERED: cloNIDine HCL 0.1 MG TABLET PO PRN (21:26)
[2020-03-23] MEDS ORDERED: NICOTINE POLACRILEX 2 MG GUM BUC PRN (21:26)
[2020-03-23] MEDS ORDERED: METHADONE HCL 10 MG TABLET (FOR DETOX USE ONLY) PO ONE (21:26)
[2020-03-23] MEDS ORDERED: BISMUTH SUBSALICYLATE 524 MG/30 ML UD PO PRN (21:26)
[2020-03-23] MEDS: THIAMINE HCL 100 MG TABLET (FP) PO SCH (21:50)
[2020-03-23] MEDS ORDERED: MELATONIN 5 MG TABLETS PO SCH (22:00)
[2020-03-24] MEDS ORDERED: METHADONE HCL 10 MG TABLET (FOR DETOX USE ONLY) ONE (09:01)
[2020-03-24] MEDS ORDERED: METHADONE HCL 5 MG TABLET (FOR DETOX USE ONLY) ONE (09:01)
[2020-03-24] MEDS: NICOTINE 14 MG/24 HOURS TOPICAL PATCH TD SCH (09:06)
[2020-03-24] MEDS: PRENATAL VITAMINS W/ FOLIC ACID TABLET (FP) PO SCH (09:07)
[2020-03-24] MEDS ORDERED: METHADONE (DETOX) 20 MG, METHADONE (DETOX) 5 MG PO ONE (10:00)
[2020-03-24 12:03] LABS: HEMOGLOBIN 11.6 GM/dL (10.7-15.3); MCH 28.7 pg (25.7-33.7); MCHC 34.1 g/dl (32.0-36.0); MEAN CELL VOLUME 84.2 fl (80-96); MEAN PLT VOLUME 9.6 fl (7.5-11.1); PLATELET COUNT 154 K/MM3 (134-434); RBC 4.04 M/mm3 (3.60-5.2); RDW 15.4 % (11.6-15.6); WHITE BLOOD COUNT 4.2 K/mm3 (4.0-10.0)
[2020-03-24 12:06] LABS: ALBUMIN 2.9 g/dl (3.4-5.0); CALCIUM 8.4 mg/dL (8.5-10.1)
[2020-03-24 12:07] LABS: BLOOD UREA NITROGEN 17.6 mg/dL (7-18)
[2020-03-24 12:10] LABS: CREATININE 0.7 mg/dL (0.55-1.3)
[2020-03-24 12:11] LABS: BILIRUBIN,TOTAL 0.5 mg/dL (0.2-1); TOT PROT 7.7 g/dl (6.4-8.2)
[2020-03-24] MEDS ORDERED: COLLOIDAL OATMEAL 1 BAR EACH TP PRN (15:16)
[2020-03-24] MEDS: THIAMINE HCL 100 MG TABLET (FP) PO SCH (22:12)
[2020-03-24] MEDS: MELATONIN 5 MG TABLETS PO SCH (22:12)
[2020-03-24] MEDS: QUEtiapine FUMARATE 50 MG TABLET PO SCH (22:12)
[2020-03-25] MEDS ORDERED: METHADONE HCL 10 MG TABLET (FOR DETOX USE ONLY) PO ONE (10:00)
[2020-03-25] MEDS: PRENATAL VITAMINS W/ FOLIC ACID TABLET (FP) PO SCH (10:18)
[2020-03-25] MEDS: NICOTINE 14 MG/24 HOURS TOPICAL PATCH TD SCH (10:19)
[2020-03-25] MEDS ORDERED: FLU VACCINE (FLULAVAL) PF 60 MCG/0.5 ML SYRINGE 2020-2021 IM ONE (12:00)
[2020-03-25] MEDS: THIAMINE HCL 100 MG TABLET (FP) PO SCH (22:16)
[2020-03-25] MEDS: MELATONIN 5 MG TABLETS PO SCH (22:17)
[2020-03-25] MEDS: QUEtiapine FUMARATE 50 MG TABLET PO SCH (22:17)
[2020-03-26] MEDS ORDERED: METHADONE HCL 10 MG TABLET (FOR DETOX USE ONLY) ONE (09:06)
[2020-03-26] MEDS ORDERED: METHADONE HCL 5 MG TABLET (FOR DETOX USE ONLY) ONE (09:07)
[2020-03-26] MEDS ORDERED: METHADONE (DETOX) 10 MG, METHADONE (DETOX) 5 MG PO ONE (10:00)
[2020-03-26 10:35] VITALS: BP 100/75; PULSE 72; TEMP 97.5
[2020-03-26] MEDS: PRENATAL VITAMINS W/ FOLIC ACID TABLET (FP) PO SCH (10:43)
[2020-03-26] MEDS: NICOTINE 14 MG/24 HOURS TOPICAL PATCH TD SCH (10:44)
[2020-03-26] MEDS ORDERED: NALOXONE (NARCAN) HCL 4 MG/0.1 ML SPRAY NS PRN (15:07)
[2020-03-27] MEDS ORDERED: METHADONE HCL 10 MG TABLET (FOR DETOX USE ONLY) PO ONE (10:00)
[2020-03-28] MEDS ORDERED: METHADONE HCL 5 MG TABLET (FOR DETOX USE ONLY) PO ONE (06:00)
== END 2020-03-26 10:50 | disposition left against medical advice (07) | DRG 770 ==
LOC: YASAS 16:21 → Y3N 03-24 08:30
PROVIDERS: ADMIT Allergy & Immunology; ATTEND Allergy & Immunology
PROC: HZ2ZZZZ Detoxification Services for Substance Abuse Treatment (ICD-10-PCS; principal; 2020-03-24)
DX: F11.23 Opioid dependence with withdrawal (principal); F10.230 Alcohol dependence with withdrawal, uncomplicated; F14.20 Cocaine dependence, uncomplicated; F12.20 Cannabis dependence, uncomplicated; F17.210 Nicotine dependence, cigarettes, uncomplicated; F19.282 Other psychoactive substance dependence with psychoactive substance-induced sleep disorder; F19.280 Other psychoactive substance dependence with psychoactive substance-induced anxiety disorder; F19.24 Other psychoactive substance dependence with psychoactive substance-induced mood disorder; F31.9 Bipolar disorder, unspecified; F34.1 Dysthymic disorder; Z21 Asymptomatic human immunodeficiency virus [HIV] infection status; E88.09 Other disorders of plasma-protein metabolism, not elsewhere classified; I10 Essential (primary) hypertension; K21.9 Gastro-esophageal reflux disease without esophagitis; D50.9 Iron deficiency anemia, unspecified; Z88.2 Allergy status to sulfonamides
CPT/HCPCS: 36415; 80053; 81025; 85027; 86780; 93005; 93010; C9803; J0735; U0003

== ENCOUNTER 2023-04-24 10:26 | Inpatient (IN) | payer OTHER ==
[2023-04-24 11:05] VITALS: BMI 33.5
[2023-04-24] MEDS ORDERED: NICOTINE POLACRILEX 2 MG GUM BUC PRN (11:44)
[2023-04-24] MEDS ORDERED: ACETAMINOPHEN 325 MG TABLET (FP) PO PRN (11:44)
[2023-04-24] MEDS ORDERED: BISMUTH SUBSALICYLATE 262 MG/15 ML BTL PO PRN (11:44)
[2023-04-24] MEDS ORDERED: NALOXONE HCL (KLOXXADO) 8 MG SPRAY NS PRN (11:44)
[2023-04-24] MEDS ORDERED: IBUPROFEN 400 MG TABLET (FP) PO PRN (11:44)
[2023-04-24] MEDS ORDERED: IBUPROFEN 600 MG TABLET (FP) PO PRN (11:44)
[2023-04-24] MEDS ORDERED: MAGNESIUM HYDROX 2400MG/30ML ORAL SUSPENSION 30 ML CUP PO PRN (11:44)
[2023-04-24] MEDS ORDERED: NALOXONE HCL 0.4 MG/ML VIAL IM PRN (11:44)
[2023-04-24] MEDS ORDERED: ONDANSETRON *ODT* 4 MG TABLET SL PRN (11:44)
[2023-04-24] MEDS ORDERED: METHOCARBAMOL 500 MG TABLET PO PRN (11:44)
[2023-04-24] MEDS ORDERED: BENZOCAINE/MENTHOL (CHLORASEPTIC ) LOZENGE MM PRN (11:44)
[2023-04-24] MEDS ORDERED: MAG HYDROX/AL HYDROX/SIMETH 30 ML UNIT-DOSE CUP PO PRN (11:44)
[2023-04-24] MEDS ORDERED: hydrOXYzine PAMOATE 25 MG CAPSULE (FP) PO PRN (11:44)
[2023-04-24] MEDS ORDERED: LOPERAMIDE HCL 2 MG CAPSULE PO PRN (11:44)
[2023-04-24] MEDS ORDERED: DICYCLOMINE HCL 10 MG CAPSULE PO PRN (11:44)
[2023-04-24] MEDS ORDERED: POLYETHYLENE GLYCOL (HEALTHYLAX) 3350 17 GM PACKET PO PRN (11:44)
[2023-04-24] MEDS ORDERED: guaiFENesin 600 MG TABLET.ER (FP) PO PRN (11:44)
[2023-04-24] MEDS ORDERED: BENZONATATE 200 MG CAPSULE PO PRN (11:44)
[2023-04-24] MEDS: MELATONIN 5 MG TABLETS PO SCH (22:39)
[2023-04-24] MEDS: THIAMINE HCL 100 MG TABLET (FP) PO SCH (22:39)
[2023-04-25 06:24] VITALS: RESP 18
[2023-04-25 09:06] VITALS: BP 108/89; PULSE 73; TEMP 96.9
[2023-04-25] MEDS: NICOTINE 14 MG/24 HOURS TOPICAL PATCH TD SCH (10:08)
[2023-04-25] MEDS: PRENATAL VITAMINS W/ FOLIC ACID TABLET (FP) PO SCH (10:08)
[2023-04-25 11:10] LABS: HEMATOCRIT 35.3 % (32.4-45.2); HEMOGLOBIN 12.2 GM/dL (10.7-15.3); MCH 30.7 pg (25.7-33.7); MCHC 34.5 g/dl (32.0-36.0); MEAN CELL VOLUME 88.8 fl (80-96); MEAN PLT VOLUME 10.1 fl (7.5-11.1); PLATELET COUNT 168 10^3/uL (134-434); RBC 3.97 M/mm3 (3.60-5.2); RDW 13.5 % (11.6-15.6); WHITE BLOOD COUNT 2.3 K/mm3 (4.0-10.0)
[2023-04-25 11:38] LABS: POTASSIUM 3.9 mmol/L (3.5-5.1)
[2023-04-25 11:42] LABS: ALBUMIN 3.3 g/dl (3.4-5.0); BLOOD UREA NITROGEN 13.5 mg/dL (7-18); CALCIUM 8.7 mg/dL (8.5-10.1)
[2023-04-25 11:46] LABS: CREATININE 0.7 mg/dL (0.55-1.3)
[2023-04-25 11:47] LABS: BILIRUBIN,TOTAL 0.2 mg/dL (0.2-1); TOT PROT 7.5 g/dl (6.4-8.2)
== END 2023-04-25 09:49 | disposition home or self-care (01) | DRG 773 ==
LOC: YASAS 10:26 → Y6N 12:28 → Y3N 12:31
PROVIDERS: ADMIT Allergy & Immunology; ATTEND Surgery
PROC: HZ2ZZZZ Detoxification Services for Substance Abuse Treatment (ICD-10-PCS; principal; 2023-04-24)
DX: F11.20 Opioid dependence, uncomplicated (principal); F14.20 Cocaine dependence, uncomplicated; F16.20 Hallucinogen dependence, uncomplicated; F17.210 Nicotine dependence, cigarettes, uncomplicated; F31.9 Bipolar disorder, unspecified; F43.10 Post-traumatic stress disorder, unspecified; Z21 Asymptomatic human immunodeficiency virus [HIV] infection status; D50.9 Iron deficiency anemia, unspecified; I10 Essential (primary) hypertension; K21.9 Gastro-esophageal reflux disease without esophagitis; Z88.2 Allergy status to sulfonamides
CPT/HCPCS: 36415; 80053; 80305; 80307; 81025; 85027; 86780; 87635; 93005; 93010